=== PATIENT | female | born 1945 | race Caucasian/White ===

== ENCOUNTER → 2017-01-21 | Outpatient (CLI) | payer MEDICARE, BC ==
[~2017-01-21] MED LIST: ASPI-630 PO; CLON0.12 PO; ESCITALOPRAM OX10 MG PO; GLIM1TAB2 PO; INSU100V8 SQ; L.AC1CAP6 PO; LEVO25TA4 PO; LOSA25TA4 PO; MIRT7.5T8 PO; OMEP10CA3 PO; POTA20PA PO
[2017-01-21 14:37] LABS: CREATININE 1.1 mg/dL (0.6-1.0); GFR 49.2; POTASSIUM 3.6 mmol/L (3.5-5.1)
== END | disposition home or self-care (01) ==
LOC: LAB 13:56
PROVIDERS: ATTEND Psychiatry & Neurology Neurology
DX: R51 Headache (principal)
CPT/HCPCS: 36415; 80051; 82565; 84520

== ENCOUNTER 2017-03-23 00:59 | Inpatient (IN) | payer MEDICARE, BC ==
[2017-03-23] VITALS (19 sets, daily range): BP systolic 98–171; BP diastolic 56–91
[~2017-03-23] VITALS: Ht 160 cm; Wt 110.7 kg
[2017-03-23] MEDS ORDERED: hydrALAZINE 20 MG/ML VIAL. IVP PRN ×2 (02:00→09:45)
[2017-03-23] MEDS: KETOROLAC 15 MG/ML VIAL. IV PRN ×2 (03:48→10:31)
[2017-03-23] MEDS ORDERED: LOSA1TAB19 PO (07:22)
[2017-03-23] MEDS ORDERED: CHOL500016 PO (07:22)
[2017-03-23] MEDS ORDERED: GLIM1TAB2 PO (07:22)
[2017-03-23] MEDS ORDERED: POLY17PO29 PO (07:22)
[2017-03-23] MEDS ORDERED: GLIM4TAB2 PO (07:22)
[2017-03-23] MEDS ORDERED: CLON1TAB3 PO (07:22)
[2017-03-23] MEDS ORDERED: POTASSIUM CHLO10 MEQ PO (07:22)
[2017-03-23] MEDS ORDERED: LEVO112T50 PO (07:49)
[2017-03-23] MEDS ORDERED: ATOR20TA58 PO (07:49)
[2017-03-23] MEDS ORDERED: ONDA4TAB7 PO (07:49)
[2017-03-23] MEDS ORDERED: FLUT9.9S NS (07:49)
[2017-03-23] MEDS ORDERED: IVIG (07:49)
[2017-03-23] MEDS ORDERED: ASPI-482 PO (07:49)
[2017-03-23] MEDS ORDERED: TOPI25TA52 PO (07:49)
[2017-03-23] MEDS ORDERED: INSU100V13 SQ (07:49)
[2017-03-23] MEDS ORDERED: MULT1TAB52 PO (07:49)
[2017-03-23] MEDS ORDERED: ACET-704 PO (07:49)
[2017-03-23] MEDS ORDERED: GABA600T2 PO (07:49)
[2017-03-23] MEDS ORDERED: ESCITALOPRAM OX20 MG PO (07:49)
[2017-03-23] MEDS ORDERED: LACT1CAP6 PO (07:49)
[2017-03-23] MEDS ORDERED: CARV12.52 PO (07:49)
--- NOTE | 2017-03-23 08:32 | RAD ---
Indication abnormal physical exam. A single view of the chest was obtained. No prior imaging of the chest is available. The heart and pulmonary vessels are within normal limits. The left lung is clear. There is some volume loss in the right lower lobe compatible with atelectasis, scar or pneumonia. There may be a tiny right pleural effusion. There is no pneumothorax. The visualized bony structures appear grossly intact. IMPRESSION: Volume loss at the right lung base compatible with atelectasis, scar or pneumonia.
--- NOTE | 2017-03-23 09:44 | PDOC2 ---
VENU BULL EPIC RADIANT ANALYST 03/23/17 0944: CARDIAC CONSULT DATE OF CONSULT Date of Consult DATE: 03/23/17 TIME: 09:36 REASON FOR CONSULT Reason for Consult: CHF REFERRING PHYSICIAN Referring Physician: Dr. Uli Diaz SOURCE Source: Chart review, Patient HISTORY OF PRESENT ILLNESS HISTORY OF PRESENT ILLNESS 71 year old female who underwent outpatient left shoulder surgery @ [facility]. Reportedly on Tylenol #3 at home and became more lethargic. Brought to [facility] for lethargy and difficulty with arousing patient. Noted to have acute hypercapnic respiratory failure and increase in troponin level. She reports being short of breath recently and attributes this to a sinus infection. She also reports having trouble with speaking in the last few days. She currently complains of a headache and left shoulder pain. Reason for Visit: shortness of breath PAST MEDICAL HISTORY Cardiovascular: HTN Psych: Anxiety, Depression ENT: Sincusitis (chronic ) Endocrine: Diabetes, Hyperthyroidism, Hypothyroidism PAST SURGICAL HISTORY Past Surgical History: Cholecystectomy SOCIAL HISTORY Smoke: No ALCOHOL: none Drugs: None CURRENT MEDICATIONS CURRENT MEDICATIONS Current Medications Medications (Trade) Dose Ordered Sig/Mis Route PRN Reason Start Time Stop Time Status Last Admin Dose Admin Ketorolac Tromethamine (Toradol) 15 mg PRN Q6HRS PRN IV PAIN 03/23/17 02:30 03/28/17 02:29 03/23/17 03:48 ALLERGIES ALLERGIES: Coded Allergies: Sulfa (Sulfonamide Antibiotics) (Verified Allergy, Unknown, 10/16/14) aripiprazole (Verified Allergy, Unknown, 10/16/14) doxycycline (Verified Allergy, Unknown, 10/16/14) pseudoephedrine (Verified Allergy, Unknown, 10/16/14) ROS General: YES: Fatigue, Malaise PSYCHOLOGICAL ROS: No: Anxiety, Behavioral Disorder, Concentration difficultie , Decreased libido, Depression, Disorientation, Hallucinations, Hostility, Irritablity, Memory difficulties, Mood Swings, Obsessive thoughts, Physical abuse, Sexual abuse, Sleep disturbances, Suicidal ideation, Other Eyes: No Blurry vision, No Decreased vision, No Double vision, No Dry eyes, No Excessive tearing, No Eye Pain, No Itchy Eyes, No Loss of vision, No Photophobia , No Scotomata, No Uses contacts, No Uses glasses, No Other HEENT: YES: Heacaches ALLERGY AND IMMUNOLOGY: No: Hives, Insect Bite Sensitivity, Itchy/Watery Eyes, Nasal Congestion, Post Nasal Drip, Seasonal Allergies, Other Hematological and Lymphatic: No: Bleeding Problems, Blood Clots, Blood Transfusions, Brusing, Night Sweats, Pallor, Swollen Lymph Nodes, Other Respiratory: YES: Shortness of breath, SOB with excertion Cardiovascular: No Chest Pain, No Palpitations, No Orthopnea, No Paroxysmal Noc. Dyspnea, No Edema, No Lt Headedness, No Other Gastrointestinal: No Nausea, No Vomiting, No Abdominal Pain, No Diarrhea, No Constipation, No Melena, No Hematochezia, No Other Genitourinary: YES , No Dysuria, No Frequency, No Incontinence, No Hematuria, No Retention, No Discharge, No Urgency, No Pain, No Flank Pain, No Other Musculoskeletal: No Gait Disturbance, No Joint Pain, No Joint Stiffness, No Joint Swelling, No Muscle Pain, No Muscular Weakness, No Pain In:, No Swelling In:, No Other Skin: No Dry Skin, No Eczema, No Hair Changes, No Lumps, No Mole Changes, No Mottling, No Nail Changes, No Pruritus, No Rash, No Skin Lesion Changes, No Other, No Acne PHYSICAL EXAM General: Alert, Cooperative HEENT: Atraumatic Lungs: Other (diminished in the bases) Heart: Normal S1, Normal S2 Abdomen: Soft, Other (truncal obesity) Extremities: No edema, Normal pulses Skin: No rashes Neuro: Normal speech Psych/Mental Status: Mood NL MUSCULOSKELETAL: Osteoarthritic changes both hands VITALS VITALS Vital Signs Date Time Temp Pulse Resp B/P (MAP) Pulse Ox O2 Delivery O2 Flow Rate FiO2 03/23/17 06:00 76 15 158/68 (98) 95 Nasal Cannula 3.0 03/23/17 04:00 98.8 98.8 LABS Lab: Laboratory Tests Test 03/23/17 03:00 03/23/17 09:02 Troponin I Quantitative 0.082 ng/mL (0.000-0.055) Glucose (Fingerstick) 119 mg/dL (70-99) ECHOCARDIOGRAM ECHOCARDIOGRAM pending ASSESSMENT/PLAN ASSESSMENT/PLAN 1. acute hypercapnic resp failure off bi-pap and on cannula ? related to narcotic use 2. elevated troponin ? related to acute respiratory failure echo results pending ? MPI tomorrow 3. recent left shoulder surgery Problems: MCSWEYN,ELIECER J MD 03/23/17 1756: CARDIAC CONSULT ALLERGIES ALLERGIES: Coded Allergies: Sulfa (Sulfonamide Antibiotics) (Verified Allergy, Unknown, 10/16/14) aripiprazole (Verified Allergy, Unknown, 10/16/14) doxycycline (Verified Allergy, Unknown, 10/16/14) pseudoephedrine (Verified Allergy, Unknown, 10/16/14) ASSESSMENT/PLAN ASSESSMENT/PLAN Patient seen and examined Acute hypercapnic respiratory failure. Initially treated with BiPAP at now off BiPAP. Feeling better. Uncertain relationship to pain medications. Echocardiogram pending. Pulmonary evaluation pending. Minimally elevated troponin. No acute EKG changes. Echocardiogram as above. Possible demand ischemia. We'll consider MPI testing in the next one to 2 days. Recent left shoulder surgery shot admission. We'll check old records. Continue postop protocols. Thank you for allowing us to participate in the care of your patient. Problems: VENU BULL APRN Mar 23, 2017 09:44 ELIECER MIJARES MD Mar 23, 2017 17:56
[2017-03-23] MEDS ORDERED: DEXTROSE 50% 25 GM / 50ML DISP.SYRIN. IV PRN (09:45)
[2017-03-23] MEDS ORDERED: DOCUSATE SODIUM 100 MG CAPSULE. PO PRN (09:45)
[2017-03-23] MEDS ORDERED: ALBUTEROL SULFATE 2.5 MG/3 ML NEBU. NEB PRN (09:45)
[2017-03-23] MEDS ORDERED: MORPHINE SULFATE 2 MG/ML DISP.SYRIN. IV PRN (09:45)
[2017-03-23 09:58] LABS: CALCIUM 9.1 mg/dL (8.5-10.1); POTASSIUM 5.1 mmol/L (3.5-5.1); TOTAL BILIRUBIN 0.2 mg/dL (0.2-1.0); TOTAL PROTEIN 6.1 g/dL (6.4-8.2)
[2017-03-23] MEDS: POTASSIUM CHLORIDE 10 MEQ TABLET.ER. PO SCH (10:00)
[2017-03-23] MEDS: hydroCHLOROthiazide 12.5 MG CAPSULE PO SCH (10:21)
[2017-03-23] MEDS: MULTIVITAMIN with MINERAL TABLET. PO SCH (10:21)
[2017-03-23] MEDS: CARVEDILOL 12.5 MG TABLET. PO SCH ×2 (10:21→16:57)
[2017-03-23] MEDS: CHOLECALCIFEROL (VITAMIN D3) 5,000 UNIT CAPSULE PO SCH (10:21)
[2017-03-23] MEDS: CITALOPRAM 20 MG TABLET. PO SCH (10:21)
[2017-03-23] MEDS: LOSARTAN POTASSIUM 50 MG TABLET. PO SCH (10:22)
[2017-03-23] MEDS: traMADol 50 MG TABLET PO PRN ×2 (10:22→16:57)
[2017-03-23] MEDS: PANTOPRAZOLE 40 MG TABLET.DR. PO SCH (10:22)
[2017-03-23] MEDS: ASPIRIN CHEWABLE 81 MG TABLET. PO SCH (10:23)
[2017-03-23] MEDS: GABAPENTIN 300 MG CAPSULE. PO SCH ×2 (10:23→21:56)
[2017-03-23] MEDS: POLYETHYLENE GLYCOL 3350 17 GM PACKET. PO SCH (10:23)
[2017-03-23] MEDS: FLUTICASONE 50MCG/NASAL SPRAY 16GM BOTTLE. NS SCH (10:30)
[2017-03-23] MEDS: ONDANSETRON PF 4 MG/2 ML VIAL. IV PRN (11:20)
[2017-03-23] MEDS: ACETAMINOPHEN 325 MG TABLET. PO PRN (11:25)
[2017-03-23] MEDS: INSULIN ASPART 300 UNITS/3 ML INSULN.PEN SQ SCH ×2 (12:00→16:58)
[2017-03-23] MEDS: IPRATRPIUM/ALBUTEROL 0.5/2.5MG 3 ML NEBU. NEB SCH ×3 (12:58→20:23)
--- NOTE | 2017-03-23 13:24 | PDOC1 ---
History and Physical Date of Admission Date of Admission 03/23/17 Identification/Chief Complaint Chief Complaint cough, AMS Problems: Source Source: Chart review, Patient History of Present Illness History of Present Illness 71yoF, with no COPD,OR CHF, but had MN with PCI 2008 , was transferred from [facility] for cough, resp failure and AMS. pT is living with her daughter at home, uses a cane. denies smoking. She has been coughing with some sputum x1day, but last week was treated with ABX for her chronic sinusitis from ENT. Pt also had some sob. no chest pain. in [facility], PH 7.25, PCO2 56. T 99.2 at home. JOCELINE on CPAP at home. recent got left shoulder fx and has sx at [facility] now on imobilizer. She aslo felt hard to find correct words to say, no new ext weakness. has h/o left ankle fx and since then uses a left foot brace. Past Medical History Cardiovascular: HTN Psych: Anxiety, Depression ENT: Sincusitis (chronic ) Endocrine: Diabetes, Hyperthyroidism, Hypothyroidism Past Surgical History Past Surgical History: Cholecystectomy Social History Smoke: No ALCOHOL: none Drugs: None Current Medications Current Medications Current Medications Medications (Trade) Dose Ordered Sig/Mis Start Time Stop Time Status Last Admin Dose Admin Acetaminophen (Tylenol) 650 mg PRN Q6HRS PRN 03/23/17 09:45 03/23/17 11:25 650 MG Albuterol Sulfate (Ventolin Neb Soln) 2.5 mg PRN Q2HR PRN 03/23/17 09:45 Albuterol/ Ipratropium (Duoneb) 3 ml RTQID 03/23/17 12:00 03/23/17 12:58 3 ML Aspirin (Children'S Aspirin) 81 mg DAILY 03/23/17 10:00 03/23/17 10:23 81 MG Atorvastatin Calcium (Lipitor) 20 mg HS 03/23/17 21:00 Carvedilol (Coreg) 12.5 mg BIDWMEALS 03/23/17 10:00 03/23/17 10:21 12.5 MG Citalopram Hydrobromide (CeleXA) 40 mg DAILY 03/23/17 10:00 03/23/17 10:21 40 MG Clonazepam (KlonoPIN) 0.5 mg QHS 03/23/17 21:00 Dextrose (Dextrose 50%-Water Syringe) 12.5 gm PRN Q15MIN PRN 03/23/17 09:45 Docusate Sodium (Colace) 100 mg PRN DAILY PRN 03/23/17 09:45 Fluticasone Propionate (Flonase) 2 spray DAILY 03/23/17 10:30 Gabapentin (Neurontin) 600 mg BID 03/23/17 10:00 03/23/17 10:23 600 MG Glimepiride (Amaryl) 4 mg DAILYWSUP 03/24/17 17:00 Guaifenesin (Mucinex) 600 mg BID 03/23/17 10:30 03/23/17 10:21 600 MG Hydralazine HCl (Apresoline Inj) 10 mg PRN Q4HRS PRN 03/23/17 09:45 Hydrochlorothiazide (Microzide) 12.5 mg DAILY 03/23/17 10:00 03/23/17 10:21 12.5 MG Insulin Aspart (NovoLOG) 0-9 UNITS TIDWMEALS 03/23/17 12:00 Insulin Detemir (Levemir) 20 units QHS 03/23/17 21:00 Ketorolac Tromethamine (Toradol) 15 mg PRN Q6HRS PRN 03/23/17 02:30 03/28/17 02:29 03/23/17 10:31 15 MG Levothyroxine Sodium (Synthroid) 112 mcg QHS 03/23/17 21:00 Losartan Potassium (Cozaar) 50 mg DAILY 03/23/17 10:00 03/23/17 10:22 50 MG Mirtazapine (Remeron) 7.5 mg QHS 03/23/17 21:00 Morphine Sulfate 2 mg PRN Q2HR PRN 03/23/17 09:45 Multivitamins (Thera M Plus) 1 tab DAILY 03/23/17 10:00 03/23/17 10:21 1 TAB Non-Formulary Medication 1 tab DAILY 03/24/17 09:00 UNV Ondansetron HCl (Zofran) 4 mg PRN Q6HRS PRN 03/23/17 09:45 03/23/17 11:20 4 MG Pantoprazole Sodium (Protonix) 40 mg DAILYAC 03/23/17 10:00 03/23/17 10:22 40 MG Polyethylene Glycol (miraLAX PACKET) 17 gm DAILY 03/23/17 10:00 03/23/17 10:23 17 GM Potassium Chloride (Klor-Con) 10 meq DAILYWBKFT 03/23/17 10:00 Topiramate (Topamax) 25 mg QHS 03/23/17 21:00 Tramadol HCl (Ultram) 50 mg PRN Q6HRS PRN 03/23/17 09:45 03/23/17 10:22 50 MG Vitamin D (Vitamin D3) 5,000 unit DAILY 03/23/17 10:00 03/23/17 10:21 5,000 UNIT Allergies Allergies Allergies Coded Allergies Type Severity Reaction Last Updated Verified Sulfa (Sulfonamide Antibiotics) Allergy Unknown 10/16/14 Yes aripiprazole Allergy Unknown 10/16/14 Yes doxycycline Allergy Unknown 10/16/14 Yes pseudoephedrine Allergy Unknown 10/16/14 Yes ROS Review of System CONSTITUTIONAL: No fever or chills EYES: No recent changes SKIN: No rash or itching CARDIOVASCULAR: No chest pain, syncope, palpitations, or edema RESPIRATORY: No SOB or cough GASTROINTESTINAL: No nausea, vomiting or abdominal pain NEUROLOGICAL: No headaches or weakness ENDOCRINE: No cold or heat intolerance GENITOURINARY: No urgency or frequency of urination MUSCULOSKELETAL: No back pain or joint pain LYMPHATICS: No enlarged lymph nodes PSYCHIATRIC: No anxiety or depression Physical Exam Physical Exam GEN.: No apparent distress. Alert and oriented. HEENT: Head is normocephalic, atraumatic NECK: Supple. LUNGS: right side decreased bs. HEART: RRR, S1, S2 present. Peripheral pulses intact ABDOMEN: Soft, nontender. Positive bowel sounds. EXTREMITIES: Without any cyanosis. NEUROLOGIC: Normal speech, normal tone PSYCHIATRIC: Normal affect, normal mood. SKIN: No ulcerations Vitals Vitals Vital Signs Date Time Temp Pulse Resp B/P (MAP) Pulse Ox O2 Delivery O2 Flow Rate FiO2 03/23/17 12:59 96 Nasal Cannula 2.0 03/23/17 11:25 17 03/23/17 10:22 78 128/63 03/23/17 07:00 98.5 98.5 Labs Labs Laboratory Tests Test 03/23/17 03:00 03/23/17 09:02 03/23/17 09:20 Troponin I Quantitative 0.082 ng/mL (0.000-0.055) 0.101 ng/mL (0.000-0.055) Glucose (Fingerstick) 119 mg/dL (70-99) Sodium Level 133 mmol/L (136-145) Potassium Level 5.1 mmol/L (3.5-5.1) Chloride Level 98 mmol/L (98-107) Carbon Dioxide Level 29 mmol/L (21-32) Anion Gap 6 (6-14) Blood Urea Nitrogen 26 mg/dL (7-20) Creatinine 1.0 mg/dL (0.6-1.0) Estimated GFR (Cockcroft-Gault) 55.0 BUN/Creatinine Ratio 26 (6-20) Glucose Level 147 mg/dL (70-99) Calcium Level 9.1 mg/dL (8.5-10.1) Total Bilirubin 0.2 mg/dL (0.2-1.0) Aspartate Amino Transf (AST/SGOT) 37 U/L (15-37) Alanine Aminotransferase (ALT/SGPT) 19 U/L (14-59) Alkaline Phosphatase 75 U/L (46-116) Total Protein 6.1 g/dL (6.4-8.2) Albumin 3.0 g/dL (3.4-5.0) Albumin/Globulin Ratio 1.0 (1.0-1.7) Laboratory Tests Test 03/23/17 03:00 03/23/17 09:02 03/23/17 09:20 Troponin I Quantitative 0.082 ng/mL (0.000-0.055) 0.101 ng/mL (0.000-0.055) Glucose (Fingerstick) 119 mg/dL (70-99) Sodium Level 133 mmol/L (136-145) Potassium Level 5.1 mmol/L (3.5-5.1) Chloride Level 98 mmol/L (98-107) Carbon Dioxide Level 29 mmol/L (21-32) Anion Gap 6 (6-14) Blood Urea Nitrogen 26 mg/dL (7-20) Creatinine 1.0 mg/dL (0.6-1.0) Estimated GFR (Cockcroft-Gault) 55.0 BUN/Creatinine Ratio 26 (6-20) Glucose Level 147 mg/dL (70-99) Calcium Level 9.1 mg/dL (8.5-10.1) Total Bilirubin 0.2 mg/dL (0.2-1.0) Aspartate Amino Transf (AST/SGOT) 37 U/L (15-37) Alanine Aminotransferase (ALT/SGPT) 19 U/L (14-59) Alkaline Phosphatase 75 U/L (46-116) Total Protein 6.1 g/dL (6.4-8.2) Albumin 3.0 g/dL (3.4-5.0) Albumin/Globulin Ratio 1.0 (1.0-1.7) VTE Prophylaxis Ordered VTE Prophylaxis Devices: Yes VTE Pharmacological Prophylaxi: Yes Assessment/Plan Assessment/Plan acute hypoxic and hypercapnic resp failure, 2/2 CAP vs. CHF exacerbation h/o CAD post PCI htn dm2 on insulin hypothyroidism morbid obesity recent left shoulder fx post sx mild malnutrition elevated troponin with CHF? plan: fu with card, pulm cont home meds duoneb, cough meds, add levaquin on insulin, decrease levemir to 20u qhs, SSI check BNP echo done, result pending NC as needed, CPAP at night dvt ppx PTOT ok to transfer out of ICU LIANA MARTIN MD Mar 23, 2017 13:24
--- NOTE | 2017-03-23 13:26 | CARD ---
APPROVED REPORT EXAM: Two-dimensional and M-mode echocardiogram with Doppler and color Doppler. Other Information Quality : Good INDICATION Elevated Troponin 2D DIMENSIONS RVDd1.5 (2.9-3.5cm)Left Atrium(2D)3.3 (1.6-4.0cm) IVSd1.4 (0.7-1.1cm)Aortic Root(2D)2.8 (2.0-3.7cm) LVDd4.6 (3.9-5.9cm)LVOT Diameter2.3 (1.8-2.4cm) PWd1.1 (0.7-1.1cm)LVDs3.6 (2.5-4.0cm) FS (%) 30.0 %SV41.3 ml LVEF(%)60.0 (>50%) Tricuspid Valve TR P. [id number] [id number] TR Peak [id number] LEFT VENTRICLE The left ventricle is normal size. There is mild asymmetric septal hypertrophy. The left ventricular systolic function is normal and the ejection fraction is within normal range. The Ejection Fraction i s 55-60%. There is normal LV segmental wall motion. Limited images due to patient positioning but wit hin this limitation, no gross wall motion abnormalities are noted. RIGHT VENTRICLE The right ventricle is normal size. The right ventricular systolic function is normal. ATRIA The left atrium size is normal. The right atrium size is normal. The interatrial septum is intact wit h no evidence for an atrial septal defect or patent foramen ovale as noted on 2-D or Doppler imaging. AORTIC VALVE The aortic valve is normal in structure and function. Doppler and Color Flow revealed no significant aortic regurgitation. There is no significant aortic valvular stenosis. MITRAL VALVE The mitral valve is normal in structure and function. There is no evidence of mitral valve prolapse. There is no mitral valve stenosis. Doppler and Color Flow revealed no mitral valve regurgitation note d. TRICUSPID VALVE The tricuspid valve is normal in structure and function. Doppler and Color Flow revealed mild tricusp id regurgitation.There is moderate pulmonary hypertension.The PA pressure was estimated at 48 mmHg. T here is no tricuspid valve stenosis. PULMONIC VALVE Doppler and Color Flow revealed no pulmonic valvular regurgitation. There is no pulmonic valvular gustavo nosis. GREAT VESSELS The aortic root is normal in size. The ascending aorta is not well seen. The IVC is normal in size an d collapses <50% with inspiration. PERICARDIAL EFFUSION There is no evidence of significant pericardial effusion. Critical Notification Critical Value: No <Conclusion> The left ventricular systolic function is normal and the ejection fraction is within normal range. Th e Ejection Fraction is 55-60%. There is normal LV segmental wall motion. Limited images due to patient positioning but within this l imitation, no gross wall motion abnormalities are noted. Doppler and Color Flow revealed mild tricuspid regurgitation.There is moderate pulmonary hypertension .The PA pressure was estimated at 48 mmHg.
[2017-03-23] MEDS: ENOXAPARIN 40 MG/0.4 ML SYRINGE. SQ SCH ×2 (15:22→21:59)
--- NOTE | 2017-03-23 15:56 | PDOC ---
PULMONARY PROGRESS NOTES Vitals Vital Signs Date Time Temp Pulse Resp B/P (MAP) Pulse Ox O2 Delivery O2 Flow Rate FiO2 03/23/17 12:59 96 Nasal Cannula 2.0 03/23/17 11:25 17 03/23/17 10:22 78 128/63 03/23/17 07:00 98.5 98.5 Labs Laboratory Tests Test 03/23/17 03:00 03/23/17 08:20 03/23/17 09:02 03/23/17 09:20 Troponin I Quantitative 0.082 ng/mL (0.000-0.055) 0.101 ng/mL (0.000-0.055) HF-Euh-E-Type Natriuretic Peptide 1587 pg/mL (0-124) Glucose (Fingerstick) 119 mg/dL (70-99) Sodium Level 133 mmol/L (136-145) Potassium Level 5.1 mmol/L (3.5-5.1) Chloride Level 98 mmol/L (98-107) Carbon Dioxide Level 29 mmol/L (21-32) Anion Gap 6 (6-14) Blood Urea Nitrogen 26 mg/dL (7-20) Creatinine 1.0 mg/dL (0.6-1.0) Estimated GFR (Cockcroft-Gault) 55.0 BUN/Creatinine Ratio 26 (6-20) Glucose Level 147 mg/dL (70-99) Calcium Level 9.1 mg/dL (8.5-10.1) Total Bilirubin 0.2 mg/dL (0.2-1.0) Aspartate Amino Transf (AST/SGOT) 37 U/L (15-37) Alanine Aminotransferase (ALT/SGPT) 19 U/L (14-59) Alkaline Phosphatase 75 U/L (46-116) Total Protein 6.1 g/dL (6.4-8.2) Albumin 3.0 g/dL (3.4-5.0) Albumin/Globulin Ratio 1.0 (1.0-1.7) Test 03/23/17 13:06 Glucose (Fingerstick) 154 mg/dL (70-99) Laboratory Tests Test 03/23/17 03:00 03/23/17 08:20 03/23/17 09:02 03/23/17 09:20 Troponin I Quantitative 0.082 ng/mL (0.000-0.055) 0.101 ng/mL (0.000-0.055) SV-Rzz-K-Type Natriuretic Peptide 1587 pg/mL (0-124) Glucose (Fingerstick) 119 mg/dL (70-99) Sodium Level 133 mmol/L (136-145) Potassium Level 5.1 mmol/L (3.5-5.1) Chloride Level 98 mmol/L (98-107) Carbon Dioxide Level 29 mmol/L (21-32) Anion Gap 6 (6-14) Blood Urea Nitrogen 26 mg/dL (7-20) Creatinine 1.0 mg/dL (0.6-1.0) Estimated GFR (Cockcroft-Gault) 55.0 BUN/Creatinine Ratio 26 (6-20) Glucose Level 147 mg/dL (70-99) Calcium Level 9.1 mg/dL (8.5-10.1) Total Bilirubin 0.2 mg/dL (0.2-1.0) Aspartate Amino Transf (AST/SGOT) 37 U/L (15-37) Alanine Aminotransferase (ALT/SGPT) 19 U/L (14-59) Alkaline Phosphatase 75 U/L (46-116) Total Protein 6.1 g/dL (6.4-8.2) Albumin 3.0 g/dL (3.4-5.0) Albumin/Globulin Ratio 1.0 (1.0-1.7) Test 03/23/17 13:06 Glucose (Fingerstick) 154 mg/dL (70-99) Medications Active Scripts Medications Dose Route/Sig Max Daily Dose Days Date Category Zofran (Ondansetron Hcl) 4 Mg Tablet 1 Tab PO PRN Q6-8HRS 03/23/17 Reported Tylenol With Codeine #3 Tablet (Acetaminophen/Codeine Phosphate) 1 Each Tablet 1 Tab PO PRN Q4HRS PRN 03/23/17 Reported [Ivig] 1 Q4WK 03/23/17 Reported Probiotic (Lactobacillus Acidophilus) 1 Each Capsule 1 Each PO DAILY 03/23/17 Reported Multivitamins (Multivitamin) 1 Each Tablet 1 Tab PO DAILY 03/23/17 Reported Gabapentin 600 Mg Tablet 600 Mg PO BID 03/23/17 Reported Levemir (Insulin Detemir) 100 Unit/1 Ml Vial 29 Unit SQ QHS 03/23/17 Reported Flonase Allergy Relief (Fluticasone Propionate) 9.9 Ml [place].susp 2 Sprays NS BID 03/23/17 Reported Carvedilol 12.5 Mg Tablet 1 Tab PO BID 03/23/17 Reported Escitalopram Oxalate 20 Mg Tablet 1 Tab PO DAILY 03/23/17 Reported Levo-T (Levothyroxine Sodium) 112 Mcg Tablet 112 Mcg PO QHS 03/23/17 Reported Atorvastatin Calcium 20 Mg Tablet 20 Mg PO HS 03/23/17 Reported Topamax (Topiramate) 25 Mg Tablet 1 Tab PO QHS 03/23/17 Reported Clonazepam 1 Mg Tablet 0.5 Tab PO QHS 03/23/17 Reported Glimepiride 4 Mg Tablet 1 Tab PO DAILYWLUN 03/23/17 Reported Glimepiride 1 Mg Tablet 1 Tab PO DAILYWSUP 03/23/17 Reported Vitamin D3 (Cholecalciferol (Vitamin D3)) 5,000 Unit Tablet 1 Tab PO DAILY 03/23/17 Reported Potassium Chloride 10 Meq Capsule.er 10 Meq PO DAILY 03/23/17 Reported Losartan-Hctz 50-12.5 Mg Tab (Losartan/Hydrochlorothiazide) 1 Each Tablet 1 Tab PO DAILY 03/23/17 Reported Miralax (Polyethylene Glycol 3350) 17 Gm Powd.pack 1 Packet PO DAILY 03/23/17 Reported Mirtazapine 7.5 Mg Tablet 7.5 Mg PO QHS 10/16/14 Reported Omeprazole 10 Mg Capsule.dr 30 Mg PO DAILY 10/16/14 Reported Aspirin 81 Mg Tab.chew 1 Tab PO DAILY 10/16/14 Reported Impression . FULL NOTE DICTATED HYPERCAP RESP FAILURE JOCELINE BIPAP IS AVOID SEDATING MEDICATION ERICA DIAZ MD Mar 23, 2017 15:56
--- NOTE | 2017-03-23 16:53 | CONS ---
DATE OF CONSULTATION: 03/23/2017 ATTENDING PHYSICIAN: Dr. Diaz. REASON FOR CONSULTATION: The patient seen in pulmonary consultation at the request of Dr. Diaz for acute respiratory failure. HISTORY OF PRESENT ILLNESS: The patient is a 71-year-old obese individual with a body mass index of 41, presented to [facility] after family noted that she had decreased level of consciousness. The patient recently underwent left shoulder surgery at [facility] and was discharged home on Tylenol 3. She was brought to the Emergency Room as a result of lethargy and difficulty with arousing. The patient was found to be in hypercapnic respiratory failure. She was placed on BiPAP and transferred to [facility]. The patient normally takes a total of 1500 mg of Neurontin. She also has a history of obstructive sleep apnea and is on BiPAP. Otherwise, she has never smoked. There is no history of DVT or pulmonary embolism. I reviewed her chemistry, she is not a CO2 retainer. Her bicarbonate in the serum was 29. She reports a cough, mostly nonproductive. No fever or chills. Chest x-ray was reviewed. There is right lower lobe infiltrate, possible atelectasis. Echocardiogram was performed, EF was 55%, pulmonary artery pressure was 48. PAST MEDICAL HISTORY: Obstructive sleep apnea, secondary pulmonary hypertension, pulmonary artery pressures measured at 48 on today's echocardiogram, anxiety and depression, hypertension, diabetes, hyperthyroidism. PAST SURGICAL HISTORY: Status post cholecystectomy. SOCIAL HISTORY: She has never smoked. Denies any alcohol intake. ALLERGIES: TO SULFA, DOXYCYCLINE, PSEUDOEPHEDRINE AND ARIPIPRAZOLE FAMILY HISTORY: Noncontributory in this situation. REVIEW OF SYSTEMS: As indicated above, otherwise, a 10-point system was reviewed and negative. PHYSICAL EXAMINATION: VITAL SIGNS: Stable. O2 saturation currently on 2 liters was 94%. HEENT: Eyes, the sclerae were nonicteric. NECK: Jugular venous distention could not be assessed secondary to body habitus. CHEST: Full expansion. LUNGS: Diminished breath sounds bilaterally with no wheezes. CARDIOVASCULAR: Regular rate and rhythm with S1, S2; no S3. ABDOMEN: Obese, soft. EXTREMITIES: No clubbing or cyanosis, some edema. NEUROLOGIC: The patient was awake, alert, following commands. A detailed neuro exam was not performed. IMPRESSION: 1. Acute hypercapnic respiratory failure. 2. Obstructive sleep apnea/obesity hypoventilation syndrome. 3. Secondary pulmonary hypertension, pulmonary artery pressure measured at 48 mmHg. 4. Morbid obesity, body mass index of 41.8. 5. Recent left shoulder surgery. PLAN: 1. Would avoid sedating medications. I think the combination of gabapentin and Tylenol 3 is what caused the hypercapnia, in addition to her underlying JOCELINE and obesity. 2. Continue BiPAP. 3. Continue home medications. 4. Incentive spirometry. 5. Continue Levaquin. 6. DVT prophylaxis. I do appreciate the privilege in sharing in the patient's care. ERICA DIAZ MD DR: RUIZ/jadyn JOB#: [id number] / [id number]
[2017-03-23] MEDS ORDERED: TOPIRAMATE 25 MG TABLET. PO SCH (21:00)
[2017-03-23] MEDS ORDERED: INSULIN DETEMIR 300 UNITS/3 ML INSULN.PEN. SQ SCH (21:00)
[2017-03-23] MEDS: ATORVASTATIN CALCIUM 20 MG TABLET PO SCH (21:56)
[2017-03-23] MEDS: LEVOTHYROXINE 112 MCG TABLET PO SCH (21:58)
[2017-03-23] MEDS: clonazePAM 0.5 MG TABLET PO SCH (21:58)
[2017-03-23] MEDS: MIRTAZAPINE 15 MG TABLET PO SCH (21:58)
[2017-03-23] MEDS: INSULIN DETEMIR 300 UNITS/3 ML INSULN.PEN. SQ SCH (22:02)
[2017-03-24 03:00] VITALS: BP 137/74
[2017-03-24] MEDS: ACETAMINOPHEN 325 MG TABLET. PO PRN (03:06)
[2017-03-24] MEDS: traMADol 50 MG TABLET PO PRN (03:06)
[2017-03-24 05:38] LABS: BASO # 0.1 x10^3/uL (0.0-0.2); BASO % 1 % (0-3); EOS % 6 % (0-3); HEMOGLOBIN 9.4 g/dL (12.0-15.5); LYMPH # 2.3 x10^3/uL (1.0-4.8); LYMPH % 31 % (24-48); MEAN CORPUSCULAR HEMOGLOBIN 28 pg (25-35); MEAN CORPUSCULAR HGB CONC 34 g/dL (31-37); MEAN CORPUSCULAR VOLUME 82 fL (79-100); MONO % 8 % (0-9); NEUT % 55 % (31-73); PLATELET COUNT 294 x10^3/uL (140-400); RED BLOOD COUNT 3.44 x10^6/uL (3.50-5.40); RED CELL DISTRIBUTION WIDTH 16.7 % (11.5-14.5); WHITE BLOOD COUNT 7.7 x10^3/uL (4.0-11.0)
[2017-03-24 06:20] LABS: CALCIUM 8.9 mg/dL (8.5-10.1); CREATININE 1.1 mg/dL (0.6-1.0); GFR 49.2; POTASSIUM 4.5 mmol/L (3.5-5.1)
[2017-03-24] MEDS: IPRATRPIUM/ALBUTEROL 0.5/2.5MG 3 ML NEBU. NEB SCH ×4 (07:17→20:17)
[2017-03-24] MEDS: INSULIN ASPART 300 UNITS/3 ML INSULN.PEN SQ SCH ×3 (08:00→17:00)
[2017-03-24 08:48] VITALS: BP 145/69
[2017-03-24] MEDS ORDERED: NON FORMULARY ITEM (Losartan/Hydrochlorothiazide (Losartan-Hctz 50-12.5 Mg Tab) 1 TAB) PO SCH (09:00)
[2017-03-24] MEDS: POLYETHYLENE GLYCOL 3350 17 GM PACKET. PO SCH ×2 (09:00→21:06)
[2017-03-24] MEDS: ENOXAPARIN 40 MG/0.4 ML SYRINGE. SQ SCH ×2 (09:11→21:07)
[2017-03-24] MEDS: CHOLECALCIFEROL (VITAMIN D3) 5,000 UNIT CAPSULE PO SCH (09:11)
[2017-03-24] MEDS: GABAPENTIN 300 MG CAPSULE. PO SCH ×2 (09:12→21:06)
[2017-03-24] MEDS: MULTIVITAMIN with MINERAL TABLET. PO SCH (09:12)
[2017-03-24] MEDS: POTASSIUM CHLORIDE 10 MEQ TABLET.ER. PO SCH (09:13)
[2017-03-24] MEDS: hydroCHLOROthiazide 12.5 MG CAPSULE PO SCH (09:13)
[2017-03-24] MEDS: CARVEDILOL 12.5 MG TABLET. PO SCH ×2 (09:13→16:30)
[2017-03-24] MEDS: ASPIRIN CHEWABLE 81 MG TABLET. PO SCH (09:13)
[2017-03-24] MEDS: CITALOPRAM 20 MG TABLET. PO SCH (09:13)
[2017-03-24] MEDS: PANTOPRAZOLE 40 MG TABLET.DR. PO SCH (09:14)
[2017-03-24] MEDS: LOSARTAN POTASSIUM 50 MG TABLET. PO SCH (09:14)
[2017-03-24] MEDS: KETOROLAC 15 MG/ML VIAL. IV PRN (09:17)
[2017-03-24] MEDS: FLUTICASONE 50MCG/NASAL SPRAY 16GM BOTTLE. NS SCH (09:18)
[2017-03-24] MEDS: ONDANSETRON PF 4 MG/2 ML VIAL. IV PRN (10:26)
[2017-03-24 11:00] VITALS: BP 148/86
--- NOTE | 2017-03-24 12:38 | PDOC ---
PULMONARY PROGRESS NOTES Subjective PT WITH NO INCREASE SOA DID NOT WEAR BIPAP LAST ALY Vitals Vital Signs Date Time Temp Pulse Resp B/P (MAP) Pulse Ox O2 Delivery O2 Flow Rate FiO2 03/24/17 11:09 Nasal Cannula 2.0 03/24/17 11:00 97.8 79 20 148/86 (106) 95 97.8 ROS: No Nausea, No Chest Pain, No Abdominal Pain, No Increase Cough Lungs: Clear Cardiovascular: S1, S2 Abdomen: Soft, Non-tender Neuro Exam: Alert Extremities: No Edema Skin: Warm, Dry Labs Laboratory Tests Test 03/23/17 01:15 03/23/17 03:00 03/23/17 08:20 03/23/17 09:02 Nasal Screen MRSA (PCR) Positive (Negative) Troponin I Quantitative 0.082 ng/mL (0.000-0.055) ES-Rbb-[id number]-Type Natriuretic Peptide 1587 pg/mL (0-124) Glucose (Fingerstick) 119 mg/dL (70-99) Test 03/23/17 09:20 03/23/17 13:06 03/23/17 16:47 03/23/17 21:07 Sodium Level 133 mmol/L (136-145) Potassium Level 5.1 mmol/L (3.5-5.1) Chloride Level 98 mmol/L (98-107) Carbon Dioxide Level 29 mmol/L (21-32) Anion Gap 6 (6-14) Blood Urea Nitrogen 26 mg/dL (7-20) Creatinine 1.0 mg/dL (0.6-1.0) Estimated GFR (Cockcroft-Gault) 55.0 BUN/Creatinine Ratio 26 (6-20) Glucose Level 147 mg/dL (70-99) Calcium Level 9.1 mg/dL (8.5-10.1) Total Bilirubin 0.2 mg/dL (0.2-1.0) Aspartate Amino Transf (AST/SGOT) 37 U/L (15-37) Alanine Aminotransferase (ALT/SGPT) 19 U/L (14-59) Alkaline Phosphatase 75 U/L (46-116) Troponin I Quantitative 0.101 ng/mL (0.000-0.055) Total Protein 6.1 g/dL (6.4-8.2) Albumin 3.0 g/dL (3.4-5.0) Albumin/Globulin Ratio 1.0 (1.0-1.7) Glucose (Fingerstick) 154 mg/dL (70-99) 111 mg/dL (70-99) 110 mg/dL (70-99) Test 03/24/17 05:30 03/24/17 08:05 03/24/17 11:53 White Blood Count 7.7 x10^3/uL (4.0-11.0) Red Blood Count 3.44 x10^6/uL (3.50-5.40) Hemoglobin 9.4 g/dL (12.0-15.5) Hematocrit 28.0 % (36.0-47.0) Mean Corpuscular Volume 82 fL (79-100) Mean Corpuscular Hemoglobin 28 pg (25-35) Mean Corpuscular Hemoglobin Concent 34 g/dL (31-37) Red Cell Distribution Width 16.7 % (11.5-14.5) Platelet Count 294 x10^3/uL (140-400) Neutrophils (%) (Auto) 55 % (31-73) Lymphocytes (%) (Auto) 31 % (24-48) Monocytes (%) (Auto) 8 % (0-9) Eosinophils (%) (Auto) 6 % (0-3) Basophils (%) (Auto) 1 % (0-3) Neutrophils # (Auto) 4.2 x10^3uL (1.8-7.7) Lymphocytes # (Auto) 2.3 x10^3/uL (1.0-4.8) Monocytes # (Auto) 0.6 x10^3/uL (0.0-1.1) Eosinophils # (Auto) 0.5 x10^3/uL (0.0-0.7) Basophils # (Auto) 0.1 x10^3/uL (0.0-0.2) Sodium Level 135 mmol/L (136-145) Potassium Level 4.5 mmol/L (3.5-5.1) Chloride Level 101 mmol/L (98-107) Carbon Dioxide Level 30 mmol/L (21-32) Anion Gap 4 (6-14) Blood Urea Nitrogen 22 mg/dL (7-20) Creatinine 1.1 mg/dL (0.6-1.0) Estimated GFR (Cockcroft-Gault) 49.2 Glucose Level 85 mg/dL (70-99) Calcium Level 8.9 mg/dL (8.5-10.1) Glucose (Fingerstick) 82 mg/dL (70-99) 192 mg/dL (70-99) Laboratory Tests Test 03/23/17 13:06 03/23/17 16:47 03/23/17 21:07 03/24/17 05:30 Glucose (Fingerstick) 154 mg/dL (70-99) 111 mg/dL (70-99) 110 mg/dL (70-99) White Blood Count 7.7 x10^3/uL (4.0-11.0) Red Blood Count 3.44 x10^6/uL (3.50-5.40) Hemoglobin 9.4 g/dL (12.0-15.5) Hematocrit 28.0 % (36.0-47.0) Mean Corpuscular Volume 82 fL (79-100) Mean Corpuscular Hemoglobin 28 pg (25-35) Mean Corpuscular Hemoglobin Concent 34 g/dL (31-37) Red Cell Distribution Width 16.7 % (11.5-14.5) Platelet Count 294 x10^3/uL (140-400) Neutrophils (%) (Auto) 55 % (31-73) Lymphocytes (%) (Auto) 31 % (24-48) Monocytes (%) (Auto) 8 % (0-9) Eosinophils (%) (Auto) 6 % (0-3) Basophils (%) (Auto) 1 % (0-3) Neutrophils # (Auto) 4.2 x10^3uL (1.8-7.7) Lymphocytes # (Auto) 2.3 x10^3/uL (1.0-4.8) Monocytes # (Auto) 0.6 x10^3/uL (0.0-1.1) Eosinophils # (Auto) 0.5 x10^3/uL (0.0-0.7) Basophils # (Auto) 0.1 x10^3/uL (0.0-0.2) Sodium Level 135 mmol/L (136-145) Potassium Level 4.5 mmol/L (3.5-5.1) Chloride Level 101 mmol/L (98-107) Carbon Dioxide Level 30 mmol/L (21-32) Anion Gap 4 (6-14) Blood Urea Nitrogen 22 mg/dL (7-20) Creatinine 1.1 mg/dL (0.6-1.0) Estimated GFR (Cockcroft-Gault) 49.2 Glucose Level 85 mg/dL (70-99) Calcium Level 8.9 mg/dL (8.5-10.1) Test 03/24/17 08:05 03/24/17 11:53 Glucose (Fingerstick) 82 mg/dL (70-99) 192 mg/dL (70-99) Medications Active Scripts Medications Dose Route/Sig Max Daily Dose Days Date Category Zofran (Ondansetron Hcl) 4 Mg Tablet 1 Tab PO PRN Q6-8HRS 03/23/17 Reported Tylenol With Codeine #3 Tablet (Acetaminophen/Codeine Phosphate) 1 Each Tablet 1 Tab PO PRN Q4HRS PRN 03/23/17 Reported [Ivig] 1 Q4WK 03/23/17 Reported Probiotic (Lactobacillus Acidophilus) 1 Each Capsule 1 Each PO DAILY 03/23/17 Reported Multivitamins (Multivitamin) 1 Each Tablet 1 Tab PO DAILY 03/23/17 Reported Gabapentin 600 Mg Tablet 600 Mg PO BID 03/23/17 Reported Levemir (Insulin Detemir) 100 Unit/1 Ml Vial 29 Unit SQ QHS 03/23/17 Reported Flonase Allergy Relief (Fluticasone Propionate) 9.9 Ml [place].susp 2 Sprays NS BID 03/23/17 Reported Carvedilol 12.5 Mg Tablet 1 Tab PO BID 03/23/17 Reported Escitalopram Oxalate 20 Mg Tablet 1 Tab PO DAILY 03/23/17 Reported Levo-T (Levothyroxine Sodium) 112 Mcg Tablet 112 Mcg PO QHS 03/23/17 Reported Atorvastatin Calcium 20 Mg Tablet 20 Mg PO HS 03/23/17 Reported Topamax (Topiramate) 25 Mg Tablet 1 Tab PO QHS 03/23/17 Reported Clonazepam 1 Mg Tablet 0.5 Tab PO QHS 03/23/17 Reported Glimepiride 4 Mg Tablet 1 Tab PO DAILYWLUN 03/23/17 Reported Glimepiride 1 Mg Tablet 1 Tab PO DAILYWSUP 03/23/17 Reported Vitamin D3 (Cholecalciferol (Vitamin D3)) 5,000 Unit Tablet 1 Tab PO DAILY 03/23/17 Reported Potassium Chloride 10 Meq Capsule.er 10 Meq PO DAILY 03/23/17 Reported Losartan-Hctz 50-12.5 Mg Tab (Losartan/Hydrochlorothiazide) 1 Each Tablet 1 Tab PO DAILY 03/23/17 Reported Miralax (Polyethylene Glycol 3350) 17 Gm Powd.pack 1 Packet PO DAILY 03/23/17 Reported Mirtazapine 7.5 Mg Tablet 7.5 Mg PO QHS 10/16/14 Reported Omeprazole 10 Mg Capsule.dr 30 Mg PO DAILY 10/16/14 Reported Aspirin 81 Mg Tab.chew 1 Tab PO DAILY 10/16/14 Reported Impression . 1. Acute hypercapnic respiratory failure. 2. Obstructive sleep apnea/obesity hypoventilation syndrome. 3. Secondary pulmonary hypertension, pulmonary artery pressure measured at 48 mmHg. 4. Morbid obesity, body mass index of 41.8. 5. Recent left shoulder surgery. 6. Possible pneumonia POA IMPRESSION: Volume loss at the right lung base compatible with atelectasis, scar or pneumonia. Plan . pt to wear home bipap will continue the same 1. Would avoid sedating medications. I think the combination of gabapentin and Tylenol 3 is what caused the hypercapnia, in addition to her underlying JOCELINE and obesity. 2. Continue BiPAP. 3. Continue home medications. 4. Incentive spirometry. 5. Continue Levaquin. 6. DVT prophylaxis. ERICA DIAZ MD Mar 24, 2017 12:37
[2017-03-24] MEDS ORDERED: FUROSEMIDE 20 MG/2 ML VIAL. IVP ONE (14:45)
--- NOTE | 2017-03-24 14:46 | PDOC ---
PROGRESS NOTES Chief Complaint Chief Complaint acute hypoxic and hypercapnic resp failure, 2/2 CAP vs. CHF exacerbation, possible mild diastolic obesity hypoventilation h/o CAD post PCI htn dm2 on insulin hypothyroidism morbid obesity recent left shoulder fx post sx mild malnutrition elevated troponin with CHF? moderate PHTN headache h/o migraine plan: fu with card, pulm cont home meds duoneb, cough meds, add levaquin on insulin, decrease levemir to 20u qhs, SSI check BNP 1500 echo done, EF 55%, moderate PHTN NC as needed, CPAP at night dvt ppx PTOT neuro consult, add NSAIDS sw for rehab lasix x1 today, cxr repeat tmr History of Present Illness History of Present Illness ROS: no fever, chills, sob or chest pain still feels mild hardness to find words to say severe headache, but said it is not her routine migraine , fu with dr. Azevedo poor home environment Vitals Vitals Vital Signs Date Time Temp Pulse Resp B/P (MAP) Pulse Ox O2 Delivery O2 Flow Rate FiO2 03/24/17 11:09 Nasal Cannula 2.0 03/24/17 11:00 97.8 79 20 148/86 (106) 95 97.8 Physical Exam General: Alert, Cooperative Heart: Normal S1, Normal S2 Lungs: Clear Abdomen: Soft, Other (truncal obesity) Extremities: No edema, Normal pulses Skin: No rashes Labs LABS Laboratory Tests Test 03/23/17 16:47 03/23/17 21:07 03/24/17 05:30 03/24/17 08:05 Glucose (Fingerstick) 111 mg/dL (70-99) 110 mg/dL (70-99) 82 mg/dL (70-99) White Blood Count 7.7 x10^3/uL (4.0-11.0) Red Blood Count 3.44 x10^6/uL (3.50-5.40) Hemoglobin 9.4 g/dL (12.0-15.5) Hematocrit 28.0 % (36.0-47.0) Mean Corpuscular Volume 82 fL (79-100) Mean Corpuscular Hemoglobin 28 pg (25-35) Mean Corpuscular Hemoglobin Concent 34 g/dL (31-37) Red Cell Distribution Width 16.7 % (11.5-14.5) Platelet Count 294 x10^3/uL (140-400) Neutrophils (%) (Auto) 55 % (31-73) Lymphocytes (%) (Auto) 31 % (24-48) Monocytes (%) (Auto) 8 % (0-9) Eosinophils (%) (Auto) 6 % (0-3) Basophils (%) (Auto) 1 % (0-3) Neutrophils # (Auto) 4.2 x10^3uL (1.8-7.7) Lymphocytes # (Auto) 2.3 x10^3/uL (1.0-4.8) Monocytes # (Auto) 0.6 x10^3/uL (0.0-1.1) Eosinophils # (Auto) 0.5 x10^3/uL (0.0-0.7) Basophils # (Auto) 0.1 x10^3/uL (0.0-0.2) Sodium Level 135 mmol/L (136-145) Potassium Level 4.5 mmol/L (3.5-5.1) Chloride Level 101 mmol/L (98-107) Carbon Dioxide Level 30 mmol/L (21-32) Anion Gap 4 (6-14) Blood Urea Nitrogen 22 mg/dL (7-20) Creatinine 1.1 mg/dL (0.6-1.0) Estimated GFR (Cockcroft-Gault) 49.2 Glucose Level 85 mg/dL (70-99) Calcium Level 8.9 mg/dL (8.5-10.1) Test 03/24/17 11:53 Glucose (Fingerstick) 192 mg/dL (70-99) Comment Review of Relevant I have reviewed the following items tung (where applicable) has been applied. Labs Laboratory Tests Test 03/23/17 01:15 03/23/17 03:00 03/23/17 08:20 03/23/17 09:02 Nasal Screen MRSA (PCR) Positive (Negative) Troponin I Quantitative 0.082 ng/mL (0.000-0.055) QX-Plp-G-Type Natriuretic Peptide 1587 pg/mL (0-124) Glucose (Fingerstick) 119 mg/dL (70-99) Test 03/23/17 09:20 03/23/17 13:06 03/23/17 16:47 03/23/17 21:07 Sodium Level 133 mmol/L (136-145) Potassium Level 5.1 mmol/L (3.5-5.1) Chloride Level 98 mmol/L (98-107) Carbon Dioxide Level 29 mmol/L (21-32) Anion Gap 6 (6-14) Blood Urea Nitrogen 26 mg/dL (7-20) Creatinine 1.0 mg/dL (0.6-1.0) Estimated GFR (Cockcroft-Gault) 55.0 BUN/Creatinine Ratio 26 (6-20) Glucose Level 147 mg/dL (70-99) Calcium Level 9.1 mg/dL (8.5-10.1) Total Bilirubin 0.2 mg/dL (0.2-1.0) Aspartate Amino Transf (AST/SGOT) 37 U/L (15-37) Alanine Aminotransferase (ALT/SGPT) 19 U/L (14-59) Alkaline Phosphatase 75 U/L (46-116) Troponin I Quantitative 0.101 ng/mL (0.000-0.055) Total Protein 6.1 g/dL (6.4-8.2) Albumin 3.0 g/dL (3.4-5.0) Albumin/Globulin Ratio 1.0 (1.0-1.7) Glucose (Fingerstick) 154 mg/dL (70-99) 111 mg/dL (70-99) 110 mg/dL (70-99) Test 03/24/17 05:30 03/24/17 08:05 03/24/17 11:53 White Blood Count 7.7 x10^3/uL (4.0-11.0) Red Blood Count 3.44 x10^6/uL (3.50-5.40) Hemoglobin 9.4 g/dL (12.0-15.5) Hematocrit 28.0 % (36.0-47.0) Mean Corpuscular Volume 82 fL (79-100) Mean Corpuscular Hemoglobin 28 pg (25-35) Mean Corpuscular Hemoglobin Concent 34 g/dL (31-37) Red Cell Distribution Width 16.7 % (11.5-14.5) Platelet Count 294 x10^3/uL (140-400) Neutrophils (%) (Auto) 55 % (31-73) Lymphocytes (%) (Auto) 31 % (24-48) Monocytes (%) (Auto) 8 % (0-9) Eosinophils (%) (Auto) 6 % (0-3) Basophils (%) (Auto) 1 % (0-3) Neutrophils # (Auto) 4.2 x10^3uL (1.8-7.7) Lymphocytes # (Auto) 2.3 x10^3/uL (1.0-4.8) Monocytes # (Auto) 0.6 x10^3/uL (0.0-1.1) Eosinophils # (Auto) 0.5 x10^3/uL (0.0-0.7) Basophils # (Auto) 0.1 x10^3/uL (0.0-0.2) Sodium Level 135 mmol/L (136-145) Potassium Level 4.5 mmol/L (3.5-5.1) Chloride Level 101 mmol/L (98-107) Carbon Dioxide Level 30 mmol/L (21-32) Anion Gap 4 (6-14) Blood Urea Nitrogen 22 mg/dL (7-20) Creatinine 1.1 mg/dL (0.6-1.0) Estimated GFR (Cockcroft-Gault) 49.2 Glucose Level 85 mg/dL (70-99) Calcium Level 8.9 mg/dL (8.5-10.1) Glucose (Fingerstick) 82 mg/dL (70-99) 192 mg/dL (70-99) Laboratory Tests Test 03/23/17 16:47 03/23/17 21:07 03/24/17 05:30 03/24/17 08:05 Glucose (Fingerstick) 111 mg/dL (70-99) 110 mg/dL (70-99) 82 mg/dL (70-99) White Blood Count 7.7 x10^3/uL (4.0-11.0) Red Blood Count 3.44 x10^6/uL (3.50-5.40) Hemoglobin 9.4 g/dL (12.0-15.5) Hematocrit 28.0 % (36.0-47.0) Mean Corpuscular Volume 82 fL (79-100) Mean Corpuscular Hemoglobin 28 pg (25-35) Mean Corpuscular Hemoglobin Concent 34 g/dL (31-37) Red Cell Distribution Width 16.7 % (11.5-14.5) Platelet Count 294 x10^3/uL (140-400) Neutrophils (%) (Auto) 55 % (31-73) Lymphocytes (%) (Auto) 31 % (24-48) Monocytes (%) (Auto) 8 % (0-9) Eosinophils (%) (Auto) 6 % (0-3) Basophils (%) (Auto) 1 % (0-3) Neutrophils # (Auto) 4.2 x10^3uL (1.8-7.7) Lymphocytes # (Auto) 2.3 x10^3/uL (1.0-4.8) Monocytes # (Auto) 0.6 x10^3/uL (0.0-1.1) Eosinophils # (Auto) 0.5 x10^3/uL (0.0-0.7) Basophils # (Auto) 0.1 x10^3/uL (0.0-0.2) Sodium Level 135 mmol/L (136-145) Potassium Level 4.5 mmol/L (3.5-5.1) Chloride Level 101 mmol/L (98-107) Carbon Dioxide Level 30 mmol/L (21-32) Anion Gap 4 (6-14) Blood Urea Nitrogen 22 mg/dL (7-20) Creatinine 1.1 mg/dL (0.6-1.0) Estimated GFR (Cockcroft-Gault) 49.2 Glucose Level 85 mg/dL (70-99) Calcium Level 8.9 mg/dL (8.5-10.1) Test 03/24/17 11:53 Glucose (Fingerstick) 192 mg/dL (70-99) Medications Current Medications Hydralazine HCl (Apresoline Inj) 10 mg PRN Q4HRS PRN IVP ELEVATED BP, SEE COMMENTS; Start 03/23/17 at 02:00; Status Cancel Ketorolac Tromethamine (Toradol) 15 mg PRN Q6HRS PRN IV PAIN Last administered on 03/24/17 09:17; Start 03/23/17 at 02:30; Stop 03/28/17 at 02:29 Aspirin (Children'S Aspirin) 81 mg DAILY PO Last administered on 03/24/17 09: 13; Start 10/9/17 at 10:00 Atorvastatin Calcium (Lipitor) 20 mg HS PO Last administered on 03/23/17 21:56 ; Start 03/23/17 at 21:00 Carvedilol (Coreg) 12.5 mg BIDWMEALS PO Last administered on 03/24/17 09:13; Start 03/23/17 at 10:00 Clonazepam (KlonoPIN) 0.5 mg QHS PO Last administered on 03/23/17 21:58; Start 03/23/17 at 21:00 Levothyroxine Sodium (Synthroid) 112 mcg QHS PO Last administered on 03/23/17 21:58; Start 03/23/17 at 21:00 Mirtazapine (Remeron) 7.5 mg QHS PO Last administered on 03/23/17 21:58; Start 03/23/17 at 21:00 Polyethylene Glycol (miraLAX PACKET) 17 gm DAILY PO Last administered on 10:23; Start 03/23/17 at 10:00; Stop 03/24/17 at 09:30; Status DC Topiramate (Topamax) 25 mg QHS PO Last administered on 03/23/17 21:56; Start 03/23/17 at 21:00 Vitamin D (Vitamin D3) 5,000 unit DAILY PO Last administered on 03/24/17 09: 11; Start 03/23/17 at 10:00 Citalopram Hydrobromide (CeleXA) 40 mg DAILY PO Last administered on 09:13; Start 03/23/17 at 10:00 Fluticasone Propionate (Flonase) 2 spray DAILY NS Last administered on 09:18; Start 03/23/17 at 10:30 Gabapentin (Neurontin) 600 mg BID PO Last administered on 03/24/17 09:12; Start 03/23/17 at 10:00 Glimepiride (Amaryl) 4 mg DAILYWSUP PO ; Start 03/24/17 at 17:00 Insulin Detemir (Levemir) 29 units QHS SQ ; Start 03/23/17 at 21:00; Stop at 21:00; Status DC Non-Formulary Medication 1 tab DAILY PO ; Start 03/24/17 at 09:00; Status UNV Multivitamins (Thera M Plus) 1 tab DAILY PO Last administered on 03/24/17 09: 12; Start 03/23/17 at 10:00 Pantoprazole Sodium (Protonix) 40 mg DAILYAC PO Last administered on 09:14; Start 03/23/17 at 10:00 Potassium Chloride (Klor-Con) 10 meq DAILYWBKFT PO Last administered on 09:13; Start 03/23/17 at 10:00 Insulin Detemir (Levemir) 20 units QHS SQ Last administered on 03/23/17 22:02 ; Start 03/23/17 at 21:00 Acetaminophen (Tylenol) 650 mg PRN Q6HRS PRN PO FEVER Last administered on 03:06; Start 03/23/17 at 09:45 Ondansetron HCl (Zofran) 4 mg PRN Q6HRS PRN IV NAUSEA/VOMITING Last administered on 03/24/17 10:26; Start 03/23/17 at 09:45 Morphine Sulfate 2 mg PRN Q2HR PRN IV PAIN; Start 03/23/17 at 09:45 Tramadol HCl (Ultram) 50 mg PRN Q6HRS PRN PO PAIN Last administered on 03:06; Start 03/23/17 at 09:45 Hydralazine HCl (Apresoline Inj) 10 mg PRN Q4HRS PRN IVP ELEVATED BP, SEE COMMENTS; Start 03/23/17 at 09:45 Docusate Sodium (Colace) 100 mg PRN DAILY PRN PO CONSTIPATION; Start 03/23/17 at 09:45 Albuterol/ Ipratropium (Duoneb) 3 ml RTQID NEB Last administered on 03/24/17 11:08; Start 03/23/17 at 12:00 Albuterol Sulfate (Ventolin Neb Soln) 2.5 mg PRN Q2HR PRN NEB SHORTNESS OF BREATH; Start 03/23/17 at 09:45 Guaifenesin (Mucinex) 600 mg BID PO Last administered on 03/24/17 09:11; Start 03/23/17 at 10:30 Insulin Aspart (NovoLOG) 0-9 UNITS TIDWMEALS SQ Last administered on 13:30; Start 03/23/17 at 12:00 Dextrose (Dextrose 50%-Water Syringe) 12.5 gm PRN Q15MIN PRN IV SEE COMMENTS; Start 03/23/17 at 09:45 Losartan Potassium (Cozaar) 50 mg DAILY PO Last administered on 03/24/17 09: 14; Start 03/23/17 at 10:00 Hydrochlorothiazide (Microzide) 12.5 mg DAILY PO Last administered on 09:13; Start 03/23/17 at 10:00 Levofloxacin/ Dextrose 150 ml @ 100 mls/hr Q24H IV Last administered on 13:37; Start 03/23/17 at 14:00 Enoxaparin Sodium (Lovenox 40mg Syringe) 40 mg BID SQ Last administered on 09:11; Start 03/23/17 at 14:00 Polyethylene Glycol (miraLAX PACKET) 17 gm QHS PO ; Start 03/24/17 at 21:00 Ibuprofen (Motrin) 600 mg PRN Q6HRS PRN PO INFLAMMATION; Start 03/24/17 at 12: 00 Active Scripts Active Reported Zofran (Ondansetron Hcl) 4 Mg Tablet 1 Tab PO PRN Q6-8HRS Tylenol With Codeine #3 Tablet (Acetaminophen/Codeine Phosphate) 1 Each Tablet 1 Tab PO PRN Q4HRS PRN [Ivig] 1 Q4WK Probiotic (Lactobacillus Acidophilus) 1 Each Capsule 1 Each PO DAILY Multivitamins (Multivitamin) 1 Each Tablet 1 Tab PO DAILY Gabapentin 600 Mg Tablet 600 Mg PO BID Levemir (Insulin Detemir) 100 Unit/1 Ml Vial 29 Unit SQ QHS Flonase Allergy Relief (Fluticasone Propionate) 9.9 Ml [place].susp 2 Sprays NS BID Carvedilol 12.5 Mg Tablet 1 Tab PO BID Escitalopram Oxalate 20 Mg Tablet 1 Tab PO DAILY Levo-T (Levothyroxine Sodium) 112 Mcg Tablet 112 Mcg PO QHS Atorvastatin Calcium 20 Mg Tablet 20 Mg PO HS Topamax (Topiramate) 25 Mg Tablet 1 Tab PO QHS Clonazepam 1 Mg Tablet 0.5 Tab PO QHS Glimepiride 4 Mg Tablet 1 Tab PO DAILYWLUN Glimepiride 1 Mg Tablet 1 Tab PO DAILYWSUP Vitamin D3 (Cholecalciferol (Vitamin D3)) 5,000 Unit Tablet 1 Tab PO DAILY Potassium Chloride 10 Meq Capsule.er 10 Meq PO DAILY Losartan-Hctz 50-12.5 Mg Tab (Losartan/Hydrochlorothiazide) 1 Each Tablet 1 Tab PO DAILY Miralax (Polyethylene Glycol 3350) 17 Gm Powd.pack 1 Packet PO DAILY Mirtazapine 7.5 Mg Tablet 7.5 Mg PO QHS Omeprazole 10 Mg Capsule.dr 30 Mg PO DAILY Aspirin 81 Mg Tab.chew 1 Tab PO DAILY Vitals/I & O Vital Sign - Last 24 Hours 03/23/17 03/23/17 03/23/17 03/23/17 16:00 16:26 16:57 16:57 Pulse 70 73 Resp 20 24 B/P (MAP) 130/70 (90) 130/70 Pulse Ox 96 97 94 O2 Delivery Nasal Cannula Nasal Cannula Nasal Cannula O2 Flow Rate 2.0 2.0 2.0 03/23/17 03/23/17 03/23/17 03/23/17 18:00 19:25 20:00 20:23 Temp 98.2 98.2 Pulse 71 Resp 14 20 B/P (MAP) 116/61 (79) Pulse Ox 95 96 94 O2 Delivery Nasal Cannula Room Air Nasal Cannula Nasal Cannula O2 Flow Rate 2.0 2.0 1.0 03/23/17 03/23/17 03/24/17 03/24/17 23:00 23:28 01:25 03:00 Temp 98.9 98.1 98.9 98.1 Pulse 71 71 Resp 20 18 B/P (MAP) 112/64 (80) 137/74 (95) Pulse Ox 95 96 95 97 O2 Delivery Room Air BiPAP/CPAP BiPAP/CPAP Nasal Cannula O2 Flow Rate 2.0 03/24/17 03/24/17 03/24/17 03/24/17 07:19 08:00 08:48 09:13 Temp 97.7 97.7 Pulse 72 72 Resp 20 B/P (MAP) 145/69 (94) 145/69 Pulse Ox 96 97 O2 Delivery Nasal Cannula Nasal Cannula Room Air O2 Flow Rate 2.0 2.0 03/24/17 03/24/17 03/24/17 09:14 11:00 11:09 Temp 97.8 97.8 Pulse 72 79 Resp 20 B/P (MAP) 145/69 148/86 (106) Pulse Ox 95 O2 Delivery Nasal Cannula Nasal Cannula O2 Flow Rate 2.0 2.0 LIANA MARTIN MD Mar 24, 2017 14:46
[2017-03-24 15:30] VITALS: BP 128/74
--- NOTE | 2017-03-24 16:07 | PDOC ---
CARDIO Progress Notes Date and Time Date of Service 03/24/2017 Time of Evaluation 1545 Subjective Subjective: No Chest Pain, No shortness of breath, No Palpitations Vitals Vitals Vital Signs Date Time Temp Pulse Resp B/P (MAP) Pulse Ox O2 Delivery O2 Flow Rate FiO2 03/24/17 15:30 97.9 73 20 128/74 (92) 98 Nasal Cannula 2.0 97.9 Weight Weight [ ] Laboratory Labs Laboratory Tests Test 03/23/17 16:47 03/23/17 21:07 03/24/17 05:30 03/24/17 08:05 Glucose (Fingerstick) 111 mg/dL (70-99) 110 mg/dL (70-99) 82 mg/dL (70-99) White Blood Count 7.7 x10^3/uL (4.0-11.0) Red Blood Count 3.44 x10^6/uL (3.50-5.40) Hemoglobin 9.4 g/dL (12.0-15.5) Hematocrit 28.0 % (36.0-47.0) Mean Corpuscular Volume 82 fL (79-100) Mean Corpuscular Hemoglobin 28 pg (25-35) Mean Corpuscular Hemoglobin Concent 34 g/dL (31-37) Red Cell Distribution Width 16.7 % (11.5-14.5) Platelet Count 294 x10^3/uL (140-400) Neutrophils (%) (Auto) 55 % (31-73) Lymphocytes (%) (Auto) 31 % (24-48) Monocytes (%) (Auto) 8 % (0-9) Eosinophils (%) (Auto) 6 % (0-3) Basophils (%) (Auto) 1 % (0-3) Neutrophils # (Auto) 4.2 x10^3uL (1.8-7.7) Lymphocytes # (Auto) 2.3 x10^3/uL (1.0-4.8) Monocytes # (Auto) 0.6 x10^3/uL (0.0-1.1) Eosinophils # (Auto) 0.5 x10^3/uL (0.0-0.7) Basophils # (Auto) 0.1 x10^3/uL (0.0-0.2) Sodium Level 135 mmol/L (136-145) Potassium Level 4.5 mmol/L (3.5-5.1) Chloride Level 101 mmol/L (98-107) Carbon Dioxide Level 30 mmol/L (21-32) Anion Gap 4 (6-14) Blood Urea Nitrogen 22 mg/dL (7-20) Creatinine 1.1 mg/dL (0.6-1.0) Estimated GFR (Cockcroft-Gault) 49.2 Glucose Level 85 mg/dL (70-99) Calcium Level 8.9 mg/dL (8.5-10.1) Test 03/24/17 11:53 Glucose (Fingerstick) 192 mg/dL (70-99) Physical Exam HEENT: Neck Supple W Full Motion Chest: Symmetric LUNGS: Clear to Auscultation Heart: S1S2, RRR (SR no significant ectopies) Abdomen: Soft N/T Extremities: No Calf Tenderness, Other (1+ bilateral LE piotting edema; right shoulder on sling) Neurology: alert, oriented, follow commands Assessment Assessment 1. Acute on chronic respiratory failure: with underlying uncontrolled JOCELINE and opioid use. pulmonary following 2. Elevated troponin: peaked at 0.1. demand mediated, hypoxia related. TTE with normal EF and wall motion. 3. Recent RRTC repair: Thursday, will need dressing change, defer to PCP. 4. CAD: stent in the past. last normal MPI 03/2016 per pt. Recommendations 1. No further cardiac workup. Good tolerance with recent surgery. F/U with Dr. Bright in 2 weeks. 2. Continue with secondary prevention 3. May consider for MPI as an outpt once shoulder is better healed and ROM is ideal. Discussed this with pt and would prefer further with her outpt youth development specialist. CARLTON VILLANUEVA APRN Mar 24, 2017 16:07
[2017-03-24] MEDS: GLIMEPIRIDE 2 MG TABLET. PO SCH (16:30)
[2017-03-24 19:25] VITALS: BP 115/67
--- NOTE | 2017-03-24 20:30 | PDOC2 ---
NEUROLOGY CONSULT Date of Admission Date of Admission DATE: 03/24/17 TIME: 20:15 Reason for Consult Reason for Consult: IMPRESSION: Headache. Temporal arteritis? Metabolic encephalopathy. Respiratory distress/failure. Pneumonia? DM HTN CAD Hypothyroidism. Cognitive impairment. Obesity. Elevated ESR. RECOMMENDATIONS/PLAN: Pain control. Brain MRI w/wo contrast. Increase Topamax to 25 mg bid. Lab: see orders. May consider temporal A biopsy after MRI id headaches not improving. HISTORY OF THE PRESENT ILLNESS: 71-y-old female patient with Hx of chronic headaches for many years but was controlled by Topamax HS dosing. She had rotate cuff surgery this time stating her headaches became worse for 3 days. She also has symptoms of mental status changes, and cognitive function impairment and feeling generalized weakness. Past Medical History Cardiovascular: HTN Psych: Anxiety, Depression ENT: Sincusitis (chronic ) Endocrine: Diabetes, Hyperthyroidism, Hypothyroidism Past Surgical History Cholecystectomy Social History Smoke: No ALCOHOL: none Drugs: None ALLERGY: reviewed. MEDICATIONS: Refer to [facility] FAMILY HISTORY: Non contributory. SOCIAL HISTORY: Lives at home. Denies smoking, drinking, and illicit drug use. REVIEW OF SYSTEMS: Constitutional: No malnutrition, weight loss, cachexia. Head: No traumatic brain or head injury. Skin: No edema, or rash. Ear: No infection. Eyes: No vision loss or color blindness. Nose: No bleeding or purulent discharges. Hearing: No hearing decrease. Neck: No injury. Breast: No history of cancer, masses,or discharges. Cardiac: CAD, HTN, HLD. Pulmonary: No COPD. GI: No GI ulcer, GI bleeding, GERD. Urinary/genital: UTI. Endocrinologic: Diabetes Mellitus, hypothyroidism, obesity. Skeletomuscular: Generalized weakness. Neurological: see HP. Psychiatric: Denies drug use/abuse. Otherwise, not [id number] review of systems. PHYSICAL EXAMINATION: General appearance is in subacute distress. HEENT: Normocephalic and nontraumatic. Eyes, nose, ears, and throat are unremarkable. Neck is supple. No lymphadenopathy. No bruits are heard over the carotid artery. No crepitus. Cardiovascular: S1, S2, regular rate and rhythm. Pulmonary: Clear to auscultation bilaterally. Abdomen: Bowel sounds are positive. Abdomen is soft, nontender, and nondistended. Extremities: No rash, lesions, or edema. No restriction of range of motion NEUROLOGICAL EXAMINATION: Alert Oriented to time, place and person. PERRL. EOMI. CN: no focal findings. Muscle tone: within normal. Muscle strength: 5- DTR: 2 Ue, 1+ at knee due to obesity. Plantar reflex: Flexor response bilaterally Gait: not examined in bed. Sensory exam: no abnormal findings. No cerebellar signs elicited. F-T-N test fine. Current Medications Current Medications Current Medications Hydralazine HCl (Apresoline Inj) 10 mg PRN Q4HRS PRN IVP ELEVATED BP, SEE COMMENTS; Start 03/23/17 at 02:00; Status Cancel Ketorolac Tromethamine (Toradol) 15 mg PRN Q6HRS PRN IV PAIN Last administered on 03/24/17 09:17; Start 03/23/17 at 02:30; Stop 03/28/17 at 02:29 Aspirin (Children'S Aspirin) 81 mg DAILY PO Last administered on 03/24/17 09: 13; Start 03/23/17 at 10:00 Atorvastatin Calcium (Lipitor) 20 mg HS PO Last administered on 03/23/17 21:56 ; Start 03/23/17 at 21:00 Carvedilol (Coreg) 12.5 mg BIDWMEALS PO Last administered on 03/24/17 16:30; Start 03/23/17 at 10:00 Clonazepam (KlonoPIN) 0.5 mg QHS PO Last administered on 03/23/17 21:58; Start 03/23/17 at 21:00 Levothyroxine Sodium (Synthroid) 112 mcg QHS PO Last administered on 03/23/17 21:58; Start 03/23/17 at 21:00 Mirtazapine (Remeron) 7.5 mg QHS PO Last administered on 03/23/17 21:58; Start 03/23/17 at 21:00 Polyethylene Glycol (miraLAX PACKET) 17 gm DAILY PO Last administered on 10:23; Start 03/23/17 at 10:00; Stop 03/24/17 at 09:30; Status DC Topiramate (Topamax) 25 mg QHS PO Last administered on 03/23/17 21:56; Start 03/23/17 at 21:00 Vitamin D (Vitamin D3) 5,000 unit DAILY PO Last administered on 03/24/17 09: 11; Start 03/23/17 at 10:00 Citalopram Hydrobromide (CeleXA) 40 mg DAILY PO Last administered on 09:13; Start 03/23/17 at 10:00 Fluticasone Propionate (Flonase) 2 spray DAILY NS Last administered on 09:18; Start 03/23/17 at 10:30 Gabapentin (Neurontin) 600 mg BID PO Last administered on 03/24/17 09:12; Start 03/23/17 at 10:00 Glimepiride (Amaryl) 4 mg DAILYWSUP PO Last administered on 03/24/17 16:30; Start 03/24/17 at 17:00 Insulin Detemir (Levemir) 29 units QHS SQ ; Start 03/23/17 at 21:00; Stop at 21:00; Status DC Non-Formulary Medication 1 tab DAILY PO ; Start 03/24/17 at 09:00; Status UNV Multivitamins (Thera M Plus) 1 tab DAILY PO Last administered on 03/24/17 09: 12; Start 03/23/17 at 10:00 Pantoprazole Sodium (Protonix) 40 mg DAILYAC PO Last administered on 09:14; Start 03/23/17 at 10:00 Potassium Chloride (Klor-Con) 10 meq DAILYWBKFT PO Last administered on 09:13; Start 03/23/17 at 10:00 Insulin Detemir (Levemir) 20 units QHS SQ Last administered on 03/23/17 22:02 ; Start 03/23/17 at 21:00 Acetaminophen (Tylenol) 650 mg PRN Q6HRS PRN PO FEVER Last administered on 03:06; Start 03/23/17 at 09:45 Ondansetron HCl (Zofran) 4 mg PRN Q6HRS PRN IV NAUSEA/VOMITING Last administered on 03/24/17 10:26; Start 03/23/17 at 09:45 Morphine Sulfate 2 mg PRN Q2HR PRN IV PAIN; Start 03/23/17 at 09:45 Tramadol HCl (Ultram) 50 mg PRN Q6HRS PRN PO PAIN Last administered on 03:06; Start 03/23/17 at 09:45 Hydralazine HCl (Apresoline Inj) 10 mg PRN Q4HRS PRN IVP ELEVATED BP, SEE COMMENTS; Start 03/23/17 at 09:45 Docusate Sodium (Colace) 100 mg PRN DAILY PRN PO CONSTIPATION; Start 03/23/17 at 09:45 Albuterol/ Ipratropium (Duoneb) 3 ml RTQID NEB Last administered on 03/24/17 15:10; Start 03/23/17 at 12:00 Albuterol Sulfate (Ventolin Neb Soln) 2.5 mg PRN Q2HR PRN NEB SHORTNESS OF BREATH; Start 03/23/17 at 09:45 Guaifenesin (Mucinex) 600 mg BID PO Last administered on 03/24/17 09:11; Start 03/23/17 at 10:30 Insulin Aspart (NovoLOG) 0-9 UNITS TIDWMEALS SQ Last administered on 13:30; Start 03/23/17 at 12:00 Dextrose (Dextrose 50%-Water Syringe) 12.5 gm PRN Q15MIN PRN IV SEE COMMENTS; Start 03/23/17 at 09:45 Losartan Potassium (Cozaar) 50 mg DAILY PO Last administered on 03/24/17 09: 14; Start 03/23/17 at 10:00 Hydrochlorothiazide (Microzide) 12.5 mg DAILY PO Last administered on 09:13; Start 03/23/17 at 10:00 Levofloxacin/ Dextrose 150 ml @ 100 mls/hr Q24H IV Last administered on 13:37; Start 03/23/17 at 14:00 Enoxaparin Sodium (Lovenox 40mg Syringe) 40 mg BID SQ Last administered on 09:11; Start 03/23/17 at 14:00 Polyethylene Glycol (miraLAX PACKET) 17 gm QHS PO ; Start 03/24/17 at 21:00 Ibuprofen (Motrin) 600 mg PRN Q6HRS PRN PO INFLAMMATION; Start 03/24/17 at 12: 00 Furosemide (Lasix) 20 mg 1X ONCE IVP Last administered on 03/24/17t 16:29; Start 03/24/17 at 14:45; Stop 03/24/17 at 14:48; Status DC Active Scripts Active Reported Zofran (Ondansetron Hcl) 4 Mg Tablet 1 Tab PO PRN Q6-8HRS Tylenol With Codeine #3 Tablet (Acetaminophen/Codeine Phosphate) 1 Each Tablet 1 Tab PO PRN Q4HRS PRN [Ivig] 1 Q4WK Probiotic (Lactobacillus Acidophilus) 1 Each Capsule 1 Each PO DAILY Multivitamins (Multivitamin) 1 Each Tablet 1 Tab PO DAILY Gabapentin 600 Mg Tablet 600 Mg PO BID Levemir (Insulin Detemir) 100 Unit/1 Ml Vial 29 Unit SQ QHS Flonase Allergy Relief (Fluticasone Propionate) 9.9 Ml [place].susp 2 Sprays NS BID Carvedilol 12.5 Mg Tablet 1 Tab PO BID Escitalopram Oxalate 20 Mg Tablet 1 Tab PO DAILY Levo-T (Levothyroxine Sodium) 112 Mcg Tablet 112 Mcg PO QHS Atorvastatin Calcium 20 Mg Tablet 20 Mg PO HS Topamax (Topiramate) 25 Mg Tablet 1 Tab PO QHS Clonazepam 1 Mg Tablet 0.5 Tab PO QHS Glimepiride 4 Mg Tablet 1 Tab PO DAILYWLUN Glimepiride 1 Mg Tablet 1 Tab PO DAILYWSUP Vitamin D3 (Cholecalciferol (Vitamin D3)) 5,000 Unit Tablet 1 Tab PO DAILY Potassium Chloride 10 Meq Capsule.er 10 Meq PO DAILY Losartan-Hctz 50-12.5 Mg Tab (Losartan/Hydrochlorothiazide) 1 Each Tablet 1 Tab PO DAILY Miralax (Polyethylene Glycol 3350) 17 Gm Powd.pack 1 Packet PO DAILY Mirtazapine 7.5 Mg Tablet 7.5 Mg PO QHS Omeprazole 10 Mg Capsule.dr 30 Mg PO DAILY Aspirin 81 Mg Tab.chew 1 Tab PO DAILY Allergies Allergies: Coded Allergies: I S O L A T I O N *CONTACT* (Verified Allergy, Unknown, 03/24/17) mrsa Sulfa (Sulfonamide Antibiotics) (Verified Allergy, Unknown, 10/16/14) aripiprazole (Verified Allergy, Unknown, 10/16/14) doxycycline (Verified Allergy, Unknown, 10/16/14) pseudoephedrine (Verified Allergy, Unknown, 10/16/14) Vitals VITALS Vital Signs Date Time Temp Pulse Resp B/P (MAP) Pulse Ox O2 Delivery O2 Flow Rate FiO2 03/24/17 19:25 98.1 74 20 115/67 (83) 96 Nasal Cannula 2.0 98.1 Labs Labs Laboratory Tests Test 03/23/17 01:15 03/23/17 03:00 03/23/17 08:20 03/23/17 09:02 Nasal Screen MRSA (PCR) Positive (Negative) Troponin I Quantitative 0.082 ng/mL (0.000-0.055) FD-[id number]-[id number]-Type Natriuretic Peptide 1587 pg/mL (0-124) Glucose (Fingerstick) 119 mg/dL (70-99) Test 03/23/17 09:20 03/23/17 13:06 03/23/17 16:47 03/23/17 21:07 Sodium Level 133 mmol/L (136-145) Potassium Level 5.1 mmol/L (3.5-5.1) Chloride Level 98 mmol/L (98-107) Carbon Dioxide Level 29 mmol/L (21-32) Anion Gap 6 (6-14) Blood Urea Nitrogen 26 mg/dL (7-20) Creatinine 1.0 mg/dL (0.6-1.0) Estimated GFR (Cockcroft-Gault) 55.0 BUN/Creatinine Ratio 26 (6-20) Glucose Level 147 mg/dL (70-99) Calcium Level 9.1 mg/dL (8.5-10.1) Total Bilirubin 0.2 mg/dL (0.2-1.0) Aspartate Amino Transf (AST/SGOT) 37 U/L (15-37) Alanine Aminotransferase (ALT/SGPT) 19 U/L (14-59) Alkaline Phosphatase 75 U/L (46-116) Troponin I Quantitative 0.101 ng/mL (0.000-0.055) Total Protein 6.1 g/dL (6.4-8.2) Albumin 3.0 g/dL (3.4-5.0) Albumin/Globulin Ratio 1.0 (1.0-1.7) Glucose (Fingerstick) 154 mg/dL (70-99) 111 mg/dL (70-99) 110 mg/dL (70-99) Test 03/24/17 05:30 03/24/17 08:05 03/24/17 11:53 03/24/17 16:40 White Blood Count 7.7 x10^3/uL (4.0-11.0) Red Blood Count 3.44 x10^6/uL (3.50-5.40) Hemoglobin 9.4 g/dL (12.0-15.5) Hematocrit 28.0 % (36.0-47.0) Mean Corpuscular Volume 82 fL (79-100) Mean Corpuscular Hemoglobin 28 pg (25-35) Mean Corpuscular Hemoglobin Concent 34 g/dL (31-37) Red Cell Distribution Width 16.7 % (11.5-14.5) Platelet Count 294 x10^3/uL (140-400) Neutrophils (%) (Auto) 55 % (31-73) Lymphocytes (%) (Auto) 31 % (24-48) Monocytes (%) (Auto) 8 % (0-9) Eosinophils (%) (Auto) 6 % (0-3) Basophils (%) (Auto) 1 % (0-3) Neutrophils # (Auto) 4.2 x10^3uL (1.8-7.7) Lymphocytes # (Auto) 2.3 x10^3/uL (1.0-4.8) Monocytes # (Auto) 0.6 x10^3/uL (0.0-1.1) Eosinophils # (Auto) 0.5 x10^3/uL (0.0-0.7) Basophils # (Auto) 0.1 x10^3/uL (0.0-0.2) Sodium Level 135 mmol/L (136-145) Potassium Level 4.5 mmol/L (3.5-5.1) Chloride Level 101 mmol/L (98-107) Carbon Dioxide Level 30 mmol/L (21-32) Anion Gap 4 (6-14) Blood Urea Nitrogen 22 mg/dL (7-20) Creatinine 1.1 mg/dL (0.6-1.0) Estimated GFR (Cockcroft-Gault) 49.2 Glucose Level 85 mg/dL (70-99) Calcium Level 8.9 mg/dL (8.5-10.1) Glucose (Fingerstick) 82 mg/dL (70-99) 192 mg/dL (70-99) Erythrocyte Sedimentation Rate 61 (0-25) Thyroid Stimulating Hormone (TSH) 4.791 uIU/mL (0.358-3.74) Test 03/24/17 16:46 Glucose (Fingerstick) 126 mg/dL (70-99) Laboratory Tests Test 03/23/17 21:07 03/24/17 05:30 03/24/17 08:05 03/24/17 11:53 Glucose (Fingerstick) 110 mg/dL (70-99) 82 mg/dL (70-99) 192 mg/dL (70-99) White Blood Count 7.7 x10^3/uL (4.0-11.0) Red Blood Count 3.44 x10^6/uL (3.50-5.40) Hemoglobin 9.4 g/dL (12.0-15.5) Hematocrit 28.0 % (36.0-47.0) Mean Corpuscular Volume 82 fL (79-100) Mean Corpuscular Hemoglobin 28 pg (25-35) Mean Corpuscular Hemoglobin Concent 34 g/dL (31-37) Red Cell Distribution Width 16.7 % (11.5-14.5) Platelet Count 294 x10^3/uL (140-400) Neutrophils (%) (Auto) 55 % (31-73) Lymphocytes (%) (Auto) 31 % (24-48) Monocytes (%) (Auto) 8 % (0-9) Eosinophils (%) (Auto) 6 % (0-3) Basophils (%) (Auto) 1 % (0-3) Neutrophils # (Auto) 4.2 x10^3uL (1.8-7.7) Lymphocytes # (Auto) 2.3 x10^3/uL (1.0-4.8) Monocytes # (Auto) 0.6 x10^3/uL (0.0-1.1) Eosinophils # (Auto) 0.5 x10^3/uL (0.0-0.7) Basophils # (Auto) 0.1 x10^3/uL (0.0-0.2) Sodium Level 135 mmol/L (136-145) Potassium Level 4.5 mmol/L (3.5-5.1) Chloride Level 101 mmol/L (98-107) Carbon Dioxide Level 30 mmol/L (21-32) Anion Gap 4 (6-14) Blood Urea Nitrogen 22 mg/dL (7-20) Creatinine 1.1 mg/dL (0.6-1.0) Estimated GFR (Cockcroft-Gault) 49.2 Glucose Level 85 mg/dL (70-99) Calcium Level 8.9 mg/dL (8.5-10.1) Test 03/24/17 16:40 03/24/17 16:46 Erythrocyte Sedimentation Rate 61 (0-25) Thyroid Stimulating Hormone (TSH) 4.791 uIU/mL (0.358-3.74) Glucose (Fingerstick) 126 mg/dL (70-99) GLENN ESCOBEDO MD Mar 24, 2017 20:30
[2017-03-24] MEDS: ATORVASTATIN CALCIUM 20 MG TABLET PO SCH (21:06)
[2017-03-24] MEDS: LEVOTHYROXINE 112 MCG TABLET PO SCH (21:07)
[2017-03-24] MEDS: MIRTAZAPINE 15 MG TABLET PO SCH (21:07)
[2017-03-24] MEDS: clonazePAM 0.5 MG TABLET PO SCH (21:07)
[2017-03-24] MEDS: TOPIRAMATE 25 MG TABLET. PO SCH (21:07)
[2017-03-24] MEDS: INSULIN DETEMIR 300 UNITS/3 ML INSULN.PEN. SQ SCH (21:10)
[2017-03-24 23:10] VITALS: BP 136/72
[2017-03-25 02:13] LABS: BILIRUBIN,URINE NEGATIVE (NEG); GLUCOSE,URINE NEGATIVE (NEG); NITRITE,URINE NEGATIVE (NEG); PROTEIN,URINE NEGATIVE (NEG-TRACE); UROBILINOGEN,URINE 0.2 mg/dL (0.2 mg/dL)
[2017-03-25 02:45] LABS: BACTERIA,URINE 0 /HPF (0-FEW); RBC,URINE 0 /HPF (0-2); SQUAMOUS EPITHELIAL CELL,UR FEW /LPF; WBC,URINE OCC /HPF (0-4)
[2017-03-25 03:10] VITALS: BP 149/82
[2017-03-25 05:01] LABS: BASO # 0.1 x10^3/uL (0.0-0.2); BASO % 1 % (0-3); EOS % 5 % (0-3); HEMOGLOBIN 9.3 g/dL (12.0-15.5); LYMPH # 2.6 x10^3/uL (1.0-4.8); LYMPH % 34 % (24-48); MEAN CORPUSCULAR HEMOGLOBIN 27 pg (25-35); MEAN CORPUSCULAR HGB CONC 33 g/dL (31-37); MEAN CORPUSCULAR VOLUME 82 fL (79-100); MONO % 9 % (0-9); NEUT % 52 % (31-73); PLATELET COUNT 314 x10^3/uL (140-400); RED BLOOD COUNT 3.41 x10^6/uL (3.50-5.40); RED CELL DISTRIBUTION WIDTH 16.6 % (11.5-14.5); WHITE BLOOD COUNT 7.8 x10^3/uL (4.0-11.0)
[2017-03-25 05:33] LABS: CALCIUM 9.2 mg/dL (8.5-10.1); CREATININE 1.1 mg/dL (0.6-1.0); GFR 49.2; POTASSIUM 3.9 mmol/L (3.5-5.1)
[2017-03-25] MEDS: ACETAMINOPHEN 325 MG TABLET. PO PRN ×2 (05:48→16:53)
[2017-03-25 07:00] VITALS: BP 122/69
[2017-03-25] MEDS: IPRATRPIUM/ALBUTEROL 0.5/2.5MG 3 ML NEBU. NEB SCH ×4 (07:27→19:43)
[2017-03-25] MEDS: INSULIN ASPART 300 UNITS/3 ML INSULN.PEN SQ SCH ×3 (08:00→17:00)
[2017-03-25] MEDS: ENOXAPARIN 40 MG/0.4 ML SYRINGE. SQ SCH ×2 (08:37→21:10)
[2017-03-25] MEDS: GLIMEPIRIDE 2 MG TABLET. PO SCH (08:37)
[2017-03-25] MEDS: PANTOPRAZOLE 40 MG TABLET.DR. PO SCH (08:37)
[2017-03-25] MEDS: ASPIRIN CHEWABLE 81 MG TABLET. PO SCH (08:37)
[2017-03-25] MEDS: MULTIVITAMIN with MINERAL TABLET. PO SCH (08:37)
[2017-03-25] MEDS: CITALOPRAM 20 MG TABLET. PO SCH (08:38)
[2017-03-25] MEDS: CHOLECALCIFEROL (VITAMIN D3) 5,000 UNIT CAPSULE PO SCH (08:38)
[2017-03-25] MEDS: GABAPENTIN 300 MG CAPSULE. PO SCH ×2 (08:38→21:09)
[2017-03-25] MEDS: LOSARTAN POTASSIUM 50 MG TABLET. PO SCH (08:38)
[2017-03-25] MEDS: hydroCHLOROthiazide 12.5 MG CAPSULE PO SCH (08:39)
[2017-03-25] MEDS: TOPIRAMATE 25 MG TABLET. PO SCH ×2 (08:39→21:09)
[2017-03-25] MEDS: POTASSIUM CHLORIDE 10 MEQ TABLET.ER. PO SCH (08:39)
[2017-03-25] MEDS: CARVEDILOL 12.5 MG TABLET. PO SCH ×2 (08:39→16:53)
[2017-03-25] MEDS: FLUTICASONE 50MCG/NASAL SPRAY 16GM BOTTLE. NS SCH (08:43)
--- NOTE | 2017-03-25 09:58 | RAD ---
Indication difficulty breathing. A single view of the chest was obtained and is compared to an examination 2 days previously. The heart size is unchanged. There is no congestive heart failure. Aeration of the right lung base has improved relative to the previous exam and no significant volume loss is seen on today's study at the right lung base. There is no consolidated pneumonia pleural fluid or pneumothorax. IMPRESSION: No acute finding seen in the chest. Improved aeration of the right lung.
[2017-03-25 11:00] VITALS: BP 157/79
[2017-03-25] MEDS ORDERED: GADOBUTROL 10 MMOL/10 ML VIAL IV ONE (12:30)
--- NOTE | 2017-03-25 12:41 | PDOC ---
PULMONARY PROGRESS NOTES Subjective PT [facility] BIPAP Vitals Vital Signs Date Time Temp Pulse Resp B/P (MAP) Pulse Ox O2 Delivery O2 Flow Rate FiO2 03/25/17 11:19 98 Room Air 03/25/17 11:00 98.4 75 19 157/79 (105) 2.0 98.4 ROS: No Nausea, No Chest Pain, No Abdominal Pain, No Increase Cough Lungs: Clear Cardiovascular: S1, S2 Abdomen: Soft, Non-tender Neuro Exam: Alert Extremities: No Edema Skin: Warm, Dry Labs Laboratory Tests Test 03/23/17 13:06 03/23/17 16:47 03/23/17 21:07 03/24/17 05:30 Glucose (Fingerstick) 154 mg/dL (70-99) 111 mg/dL (70-99) 110 mg/dL (70-99) White Blood Count 7.7 x10^3/uL (4.0-11.0) Red Blood Count 3.44 x10^6/uL (3.50-5.40) Hemoglobin 9.4 g/dL (12.0-15.5) Hematocrit 28.0 % (36.0-47.0) Mean Corpuscular Volume 82 fL (79-100) Mean Corpuscular Hemoglobin 28 pg (25-35) Mean Corpuscular Hemoglobin Concent 34 g/dL (31-37) Red Cell Distribution Width 16.7 % (11.5-14.5) Platelet Count 294 x10^3/uL (140-400) Neutrophils (%) (Auto) 55 % (31-73) Lymphocytes (%) (Auto) 31 % (24-48) Monocytes (%) (Auto) 8 % (0-9) Eosinophils (%) (Auto) 6 % (0-3) Basophils (%) (Auto) 1 % (0-3) Neutrophils # (Auto) 4.2 x10^3uL (1.8-7.7) Lymphocytes # (Auto) 2.3 x10^3/uL (1.0-4.8) Monocytes # (Auto) 0.6 x10^3/uL (0.0-1.1) Eosinophils # (Auto) 0.5 x10^3/uL (0.0-0.7) Basophils # (Auto) 0.1 x10^3/uL (0.0-0.2) Sodium Level 135 mmol/L (136-145) Potassium Level 4.5 mmol/L (3.5-5.1) Chloride Level 101 mmol/L (98-107) Carbon Dioxide Level 30 mmol/L (21-32) Anion Gap 4 (6-14) Blood Urea Nitrogen 22 mg/dL (7-20) Creatinine 1.1 mg/dL (0.6-1.0) Estimated GFR (Cockcroft-Gault) 49.2 Glucose Level 85 mg/dL (70-99) Calcium Level 8.9 mg/dL (8.5-10.1) Test 03/24/17 08:05 03/24/17 11:53 03/24/17 16:40 03/24/17 16:46 Glucose (Fingerstick) 82 mg/dL (70-99) 192 mg/dL (70-99) 126 mg/dL (70-99) Erythrocyte Sedimentation Rate 61 (0-25) Prothrombin Time 13.0 SEC (11.7-14.0) Prothromb Time International Ratio 1.0 (0.8-1.1) C-Reactive Protein High Sensitivity 12.95 mg/L (0.00-3.00) Thyroid Stimulating Hormone (TSH) 4.791 uIU/mL (0.358-3.74) Test 03/24/17 20:38 03/25/17 01:20 03/25/17 04:20 03/25/17 07:58 Glucose (Fingerstick) 110 mg/dL (70-99) 93 mg/dL (70-99) Urine Collection Type Unknown Urine Color Yellow Urine Clarity Clear Urine pH 7.0 Urine Specific [place] <=1.005 Urine Protein Negative mg/dL (NEG-TRACE) Urine Glucose (UA) Negative mg/dL (NEG) Urine Ketones (Stick) Negative mg/dL (NEG) Urine Blood Negative (NEG) Urine Nitrite Negative (NEG) Urine Bilirubin Negative (NEG) Urine Urobilinogen Dipstick 0.2 mg/dL (0.2 mg/dL) Urine Leukocyte Esterase Negative (NEG) Urine RBC 0 /HPF (0-2) Urine WBC Occ /HPF (0-4) Urine Squamous Epithelial Cells Few /LPF Urine Bacteria 0 /HPF (0-FEW) Urine Mucus Slight /LPF White Blood Count 7.8 x10^3/uL (4.0-11.0) Red Blood Count 3.41 x10^6/uL (3.50-5.40) Hemoglobin 9.3 g/dL (12.0-15.5) Hematocrit 28.0 % (36.0-47.0) Mean Corpuscular Volume 82 fL (79-100) Mean Corpuscular Hemoglobin 27 pg (25-35) Mean Corpuscular Hemoglobin Concent 33 g/dL (31-37) Red Cell Distribution Width 16.6 % (11.5-14.5) Platelet Count 314 x10^3/uL (140-400) Neutrophils (%) (Auto) 52 % (31-73) Lymphocytes (%) (Auto) 34 % (24-48) Monocytes (%) (Auto) 9 % (0-9) Eosinophils (%) (Auto) 5 % (0-3) Basophils (%) (Auto) 1 % (0-3) Neutrophils # (Auto) 4.0 x10^3uL (1.8-7.7) Lymphocytes # (Auto) 2.6 x10^3/uL (1.0-4.8) Monocytes # (Auto) 0.7 x10^3/uL (0.0-1.1) Eosinophils # (Auto) 0.4 x10^3/uL (0.0-0.7) Basophils # (Auto) 0.1 x10^3/uL (0.0-0.2) Sodium Level 134 mmol/L (136-145) Potassium Level 3.9 mmol/L (3.5-5.1) Chloride Level 98 mmol/L (98-107) Carbon Dioxide Level 31 mmol/L (21-32) Anion Gap 5 (6-14) Blood Urea Nitrogen 25 mg/dL (7-20) Creatinine 1.1 mg/dL (0.6-1.0) Estimated GFR (Cockcroft-Gault) 49.2 Glucose Level 100 mg/dL (70-99) Calcium Level 9.2 mg/dL (8.5-10.1) Laboratory Tests Test 03/24/17 16:40 03/24/17 16:46 03/24/17 20:38 03/25/17 01:20 Erythrocyte Sedimentation Rate 61 (0-25) Prothrombin Time 13.0 SEC (11.7-14.0) Prothromb Time International Ratio 1.0 (0.8-1.1) C-Reactive Protein High Sensitivity 12.95 mg/L (0.00-3.00) Thyroid Stimulating Hormone (TSH) 4.791 uIU/mL (0.358-3.74) Glucose (Fingerstick) 126 mg/dL (70-99) 110 mg/dL (70-99) Urine Collection Type Unknown Urine Color Yellow Urine Clarity Clear Urine pH 7.0 Urine Specific [place] <=1.005 Urine Protein Negative mg/dL (NEG-TRACE) Urine Glucose (UA) Negative mg/dL (NEG) Urine Ketones (Stick) Negative mg/dL (NEG) Urine Blood Negative (NEG) Urine Nitrite Negative (NEG) Urine Bilirubin Negative (NEG) Urine Urobilinogen Dipstick 0.2 mg/dL (0.2 mg/dL) Urine Leukocyte Esterase Negative (NEG) Urine RBC 0 /HPF (0-2) Urine WBC Occ /HPF (0-4) Urine Squamous Epithelial Cells Few /LPF Urine Bacteria 0 /HPF (0-FEW) Urine Mucus Slight /LPF Test 03/25/17 04:20 03/25/17 07:58 White Blood Count 7.8 x10^3/uL (4.0-11.0) Red Blood Count 3.41 x10^6/uL (3.50-5.40) Hemoglobin 9.3 g/dL (12.0-15.5) Hematocrit 28.0 % (36.0-47.0) Mean Corpuscular Volume 82 fL (79-100) Mean Corpuscular Hemoglobin 27 pg (25-35) Mean Corpuscular Hemoglobin Concent 33 g/dL (31-37) Red Cell Distribution Width 16.6 % (11.5-14.5) Platelet Count 314 x10^3/uL (140-400) Neutrophils (%) (Auto) 52 % (31-73) Lymphocytes (%) (Auto) 34 % (24-48) Monocytes (%) (Auto) 9 % (0-9) Eosinophils (%) (Auto) 5 % (0-3) Basophils (%) (Auto) 1 % (0-3) Neutrophils # (Auto) 4.0 x10^3uL (1.8-7.7) Lymphocytes # (Auto) 2.6 x10^3/uL (1.0-4.8) Monocytes # (Auto) 0.7 x10^3/uL (0.0-1.1) Eosinophils # (Auto) 0.4 x10^3/uL (0.0-0.7) Basophils # (Auto) 0.1 x10^3/uL (0.0-0.2) Sodium Level 134 mmol/L (136-145) Potassium Level 3.9 mmol/L (3.5-5.1) Chloride Level 98 mmol/L (98-107) Carbon Dioxide Level 31 mmol/L (21-32) Anion Gap 5 (6-14) Blood Urea Nitrogen 25 mg/dL (7-20) Creatinine 1.1 mg/dL (0.6-1.0) Estimated GFR (Cockcroft-Gault) 49.2 Glucose Level 100 mg/dL (70-99) Calcium Level 9.2 mg/dL (8.5-10.1) Glucose (Fingerstick) 93 mg/dL (70-99) Medications Active Scripts Medications Dose Route/Sig Max Daily Dose Days Date Category Zofran (Ondansetron Hcl) 4 Mg Tablet 1 Tab PO PRN Q6-8HRS 03/23/17 Reported Tylenol With Codeine #3 Tablet (Acetaminophen/Codeine Phosphate) 1 Each Tablet 1 Tab PO PRN Q4HRS PRN 03/23/17 Reported [Ivig] 1 Q4WK 03/23/17 Reported Probiotic (Lactobacillus Acidophilus) 1 Each Capsule 1 Each PO DAILY 03/23/17 Reported Multivitamins (Multivitamin) 1 Each Tablet 1 Tab PO DAILY 03/23/17 Reported Gabapentin 600 Mg Tablet 600 Mg PO BID 03/23/17 Reported Levemir (Insulin Detemir) 100 Unit/1 Ml Vial 29 Unit SQ QHS 03/23/17 Reported Flonase Allergy Relief (Fluticasone Propionate) 9.9 Ml [place].susp 2 Sprays NS BID 03/23/17 Reported Carvedilol 12.5 Mg Tablet 1 Tab PO BID 03/23/17 Reported Escitalopram Oxalate 20 Mg Tablet 1 Tab PO DAILY 03/23/17 Reported Levo-T (Levothyroxine Sodium) 112 Mcg Tablet 112 Mcg PO QHS 03/23/17 Reported Atorvastatin Calcium 20 Mg Tablet 20 Mg PO HS 03/23/17 Reported Topamax (Topiramate) 25 Mg Tablet 1 Tab PO QHS 03/23/17 Reported Clonazepam 1 Mg Tablet 0.5 Tab PO QHS 03/23/17 Reported Glimepiride 4 Mg Tablet 1 Tab PO DAILYWLUN 03/23/17 Reported Glimepiride 1 Mg Tablet 1 Tab PO DAILYWSUP 03/23/17 Reported Vitamin D3 (Cholecalciferol (Vitamin D3)) 5,000 Unit Tablet 1 Tab PO DAILY 03/23/17 Reported Potassium Chloride 10 Meq Capsule.er 10 Meq PO DAILY 03/23/17 Reported Losartan-Hctz 50-12.5 Mg Tab (Losartan/Hydrochlorothiazide) 1 Each Tablet 1 Tab PO DAILY 03/23/17 Reported Miralax (Polyethylene Glycol 3350) 17 Gm Powd.pack 1 Packet PO DAILY 03/23/17 Reported Mirtazapine 7.5 Mg Tablet 7.5 Mg PO QHS 10/16/14 Reported Omeprazole 10 Mg Capsule.dr 30 Mg PO DAILY 10/16/14 Reported Aspirin 81 Mg Tab.chew 1 Tab PO DAILY 10/16/14 Reported Impression . 1. Acute hypercapnic respiratory failure. 2. Obstructive sleep apnea/obesity hypoventilation syndrome. 3. Secondary pulmonary hypertension, pulmonary artery pressure measured at 48 mmHg. 4. Morbid obesity, body mass index of 41.8. 5. Recent left shoulder surgery. 6. Possible pneumonia POA IMPRESSION: Volume loss at the right lung base compatible with atelectasis, scar or pneumonia. Plan . D/W DR MARTIN D/C FOLLOW UP OUTPT AVOID EXCESSIVE SEDATION ERICA DIAZ MD Mar 25, 2017 12:41
--- NOTE | 2017-03-25 13:44 | RAD ---
INDICATION: Worsening headaches. TECHNIQUE: Sagittal T1, axial T1, axial T2, axial FLAIR, axial T2 gradient, diffusion imaging with ADC map, postcontrast axial, and postcontrast coronal sequences are provided. Postcontrast axial sequence was repeated for mild motion. Study overall is degraded by mild motion. 10 mL of intravenous Gadavist was administered without complication. Comparison is from October 16, 2013. FINDINGS:There are a few nonspecific FLAIR hyperintensities in the supratentorial white matter, most notably subinsular. These are nonspecific but most suggestive of minimal small vessel ischemic disease. There is no acute intracranial hemorrhage or extra-axial fluid collection. There is no mass effect or midline shift. There is no restricted diffusion to suggest an acute infarct. Sagittal midline structures are unremarkable. The pituitary and suprasellar region are unremarkable. Intracranial flow voids are preserved. There is no pathologic enhancement. There is maxillary and sphenoid mucosal thickening. There probably has been ethmoid bullectomy and widening of the maxillary ostia with resection or medialization of the middle turbinates. The lamina papyracea is deviated medially bilaterally, not clear if this is result of surgery or remote trauma. IMPRESSION: 1. Brain parenchymal volume loss and minimal probable small vessel ischemic disease. 2. No acute intracranial findings. Electronically signed by: Flavio Hubbard MD (03/25/2017 1:41 PM) [id number]
--- NOTE | 2017-03-25 14:15 | PDOC ---
PROGRESS NOTES Chief Complaint Chief Complaint acute hypoxic and hypercapnic resp failure, 2/2 CAP vs. sedative meds obesity hypoventilation h/o CAD post PCI htn dm2 on insulin hypothyroidism morbid obesity recent left shoulder fx post sx mild malnutrition elevated troponin with demanding ischemia moderate PHTN headache h/o migraine plan: fu with card, pulm cont home meds duoneb, cough meds, add levaquin on insulin, decrease levemir to 20u qhs, SSI echo done, EF 55%, moderate PHTN NC as needed, CPAP at night dvt ppx PTOT neuro consult, MRI brain neg. add NSAIDS sw for rehab lasix x1 cxr repeated better hope dc tmr to rehab History of Present Illness History of Present Illness ROS: no fever, chills, sob or chest pain still feels mild hardness to find words to say severe headache, but said it is not her routine migraine , fu with dr. Azevedo poor home environment, wants to go to rehab breathing better took high dose gabapentin and tylenol 3 at home post sx Vitals Vitals Vital Signs Date Time Temp Pulse Resp B/P (MAP) Pulse Ox O2 Delivery O2 Flow Rate FiO2 03/25/17 11:19 98 Room Air 03/25/17 11:00 98.4 75 19 157/79 (105) 2.0 98.4 Physical Exam General: Alert, Cooperative Heart: Normal S1, Normal S2 Lungs: Clear Abdomen: Soft, Other (truncal obesity) Extremities: No edema, Normal pulses Skin: No rashes Labs LABS Laboratory Tests Test 03/24/17 16:40 03/24/17 16:46 03/24/17 20:38 03/25/17 01:20 Erythrocyte Sedimentation Rate 61 (0-25) Prothrombin Time 13.0 SEC (11.7-14.0) Prothromb Time International Ratio 1.0 (0.8-1.1) C-Reactive Protein High Sensitivity 12.95 mg/L (0.00-3.00) Thyroid Stimulating Hormone (TSH) 4.791 uIU/mL (0.358-3.74) Glucose (Fingerstick) 126 mg/dL (70-99) 110 mg/dL (70-99) Urine Collection Type Unknown Urine Color Yellow Urine Clarity Clear Urine pH 7.0 Urine Specific [place] <=1.005 Urine Protein Negative mg/dL (NEG-TRACE) Urine Glucose (UA) Negative mg/dL (NEG) Urine Ketones (Stick) Negative mg/dL (NEG) Urine Blood Negative (NEG) Urine Nitrite Negative (NEG) Urine Bilirubin Negative (NEG) Urine Urobilinogen Dipstick 0.2 mg/dL (0.2 mg/dL) Urine Leukocyte Esterase Negative (NEG) Urine RBC 0 /HPF (0-2) Urine WBC Occ /HPF (0-4) Urine Squamous Epithelial Cells Few /LPF Urine Bacteria 0 /HPF (0-FEW) Urine Mucus Slight /LPF Test 03/25/17 04:20 03/25/17 07:58 White Blood Count 7.8 x10^3/uL (4.0-11.0) Red Blood Count 3.41 x10^6/uL (3.50-5.40) Hemoglobin 9.3 g/dL (12.0-15.5) Hematocrit 28.0 % (36.0-47.0) Mean Corpuscular Volume 82 fL (79-100) Mean Corpuscular Hemoglobin 27 pg (25-35) Mean Corpuscular Hemoglobin Concent 33 g/dL (31-37) Red Cell Distribution Width 16.6 % (11.5-14.5) Platelet Count 314 x10^3/uL (140-400) Neutrophils (%) (Auto) 52 % (31-73) Lymphocytes (%) (Auto) 34 % (24-48) Monocytes (%) (Auto) 9 % (0-9) Eosinophils (%) (Auto) 5 % (0-3) Basophils (%) (Auto) 1 % (0-3) Neutrophils # (Auto) 4.0 x10^3uL (1.8-7.7) Lymphocytes # (Auto) 2.6 x10^3/uL (1.0-4.8) Monocytes # (Auto) 0.7 x10^3/uL (0.0-1.1) Eosinophils # (Auto) 0.4 x10^3/uL (0.0-0.7) Basophils # (Auto) 0.1 x10^3/uL (0.0-0.2) Sodium Level 134 mmol/L (136-145) Potassium Level 3.9 mmol/L (3.5-5.1) Chloride Level 98 mmol/L (98-107) Carbon Dioxide Level 31 mmol/L (21-32) Anion Gap 5 (6-14) Blood Urea Nitrogen 25 mg/dL (7-20) Creatinine 1.1 mg/dL (0.6-1.0) Estimated GFR (Cockcroft-Gault) 49.2 Glucose Level 100 mg/dL (70-99) Calcium Level 9.2 mg/dL (8.5-10.1) Glucose (Fingerstick) 93 mg/dL (70-99) Comment Review of Relevant I have reviewed the following items tung (where applicable) has been applied. Labs Laboratory Tests Test 03/23/17 16:47 03/23/17 21:07 03/24/17 05:30 03/24/17 08:05 Glucose (Fingerstick) 111 mg/dL (70-99) 110 mg/dL (70-99) 82 mg/dL (70-99) White Blood Count 7.7 x10^3/uL (4.0-11.0) Red Blood Count 3.44 x10^6/uL (3.50-5.40) Hemoglobin 9.4 g/dL (12.0-15.5) Hematocrit 28.0 % (36.0-47.0) Mean Corpuscular Volume 82 fL (79-100) Mean Corpuscular Hemoglobin 28 pg (25-35) Mean Corpuscular Hemoglobin Concent 34 g/dL (31-37) Red Cell Distribution Width 16.7 % (11.5-14.5) Platelet Count 294 x10^3/uL (140-400) Neutrophils (%) (Auto) 55 % (31-73) Lymphocytes (%) (Auto) 31 % (24-48) Monocytes (%) (Auto) 8 % (0-9) Eosinophils (%) (Auto) 6 % (0-3) Basophils (%) (Auto) 1 % (0-3) Neutrophils # (Auto) 4.2 x10^3uL (1.8-7.7) Lymphocytes # (Auto) 2.3 x10^3/uL (1.0-4.8) Monocytes # (Auto) 0.6 x10^3/uL (0.0-1.1) Eosinophils # (Auto) 0.5 x10^3/uL (0.0-0.7) Basophils # (Auto) 0.1 x10^3/uL (0.0-0.2) Sodium Level 135 mmol/L (136-145) Potassium Level 4.5 mmol/L (3.5-5.1) Chloride Level 101 mmol/L (98-107) Carbon Dioxide Level 30 mmol/L (21-32) Anion Gap 4 (6-14) Blood Urea Nitrogen 22 mg/dL (7-20) Creatinine 1.1 mg/dL (0.6-1.0) Estimated GFR (Cockcroft-Gault) 49.2 Glucose Level 85 mg/dL (70-99) Calcium Level 8.9 mg/dL (8.5-10.1) Test 03/24/17 11:53 03/24/17 16:40 03/24/17 16:46 03/24/17 20:38 Glucose (Fingerstick) 192 mg/dL (70-99) 126 mg/dL (70-99) 110 mg/dL (70-99) Erythrocyte Sedimentation Rate 61 (0-25) Prothrombin Time 13.0 SEC (11.7-14.0) Prothromb Time International Ratio 1.0 (0.8-1.1) C-Reactive Protein High Sensitivity 12.95 mg/L (0.00-3.00) Thyroid Stimulating Hormone (TSH) 4.791 uIU/mL (0.358-3.74) Test 03/25/17 01:20 03/25/17 04:20 03/25/17 07:58 Urine Collection Type Unknown Urine Color Yellow Urine Clarity Clear Urine pH 7.0 Urine Specific [place] <=1.005 Urine Protein Negative mg/dL (NEG-TRACE) Urine Glucose (UA) Negative mg/dL (NEG) Urine Ketones (Stick) Negative mg/dL (NEG) Urine Blood Negative (NEG) Urine Nitrite Negative (NEG) Urine Bilirubin Negative (NEG) Urine Urobilinogen Dipstick 0.2 mg/dL (0.2 mg/dL) Urine Leukocyte Esterase Negative (NEG) Urine RBC 0 /HPF (0-2) Urine WBC Occ /HPF (0-4) Urine Squamous Epithelial Cells Few /LPF Urine Bacteria 0 /HPF (0-FEW) Urine Mucus Slight /LPF White Blood Count 7.8 x10^3/uL (4.0-11.0) Red Blood Count 3.41 x10^6/uL (3.50-5.40) Hemoglobin 9.3 g/dL (12.0-15.5) Hematocrit 28.0 % (36.0-47.0) Mean Corpuscular Volume 82 fL (79-100) Mean Corpuscular Hemoglobin 27 pg (25-35) Mean Corpuscular Hemoglobin Concent 33 g/dL (31-37) Red Cell Distribution Width 16.6 % (11.5-14.5) Platelet Count 314 x10^3/uL (140-400) Neutrophils (%) (Auto) 52 % (31-73) Lymphocytes (%) (Auto) 34 % (24-48) Monocytes (%) (Auto) 9 % (0-9) Eosinophils (%) (Auto) 5 % (0-3) Basophils (%) (Auto) 1 % (0-3) Neutrophils # (Auto) 4.0 x10^3uL (1.8-7.7) Lymphocytes # (Auto) 2.6 x10^3/uL (1.0-4.8) Monocytes # (Auto) 0.7 x10^3/uL (0.0-1.1) Eosinophils # (Auto) 0.4 x10^3/uL (0.0-0.7) Basophils # (Auto) 0.1 x10^3/uL (0.0-0.2) Sodium Level 134 mmol/L (136-145) Potassium Level 3.9 mmol/L (3.5-5.1) Chloride Level 98 mmol/L (98-107) Carbon Dioxide Level 31 mmol/L (21-32) Anion Gap 5 (6-14) Blood Urea Nitrogen 25 mg/dL (7-20) Creatinine 1.1 mg/dL (0.6-1.0) Estimated GFR (Cockcroft-Gault) 49.2 Glucose Level 100 mg/dL (70-99) Calcium Level 9.2 mg/dL (8.5-10.1) Glucose (Fingerstick) 93 mg/dL (70-99) Laboratory Tests Test 03/24/17 16:40 03/24/17 16:46 03/24/17 20:38 03/25/17 01:20 Erythrocyte Sedimentation Rate 61 (0-25) Prothrombin Time 13.0 SEC (11.7-14.0) Prothromb Time International Ratio 1.0 (0.8-1.1) C-Reactive Protein High Sensitivity 12.95 mg/L (0.00-3.00) Thyroid Stimulating Hormone (TSH) 4.791 uIU/mL (0.358-3.74) Glucose (Fingerstick) 126 mg/dL (70-99) 110 mg/dL (70-99) Urine Collection Type Unknown Urine Color Yellow Urine Clarity Clear Urine pH 7.0 Urine Specific [place] <=1.005 Urine Protein Negative mg/dL (NEG-TRACE) Urine Glucose (UA) Negative mg/dL (NEG) Urine Ketones (Stick) Negative mg/dL (NEG) Urine Blood Negative (NEG) Urine Nitrite Negative (NEG) Urine Bilirubin Negative (NEG) Urine Urobilinogen Dipstick 0.2 mg/dL (0.2 mg/dL) Urine Leukocyte Esterase Negative (NEG) Urine RBC 0 /HPF (0-2) Urine WBC Occ /HPF (0-4) Urine Squamous Epithelial Cells Few /LPF Urine Bacteria 0 /HPF (0-FEW) Urine Mucus Slight /LPF Test 03/25/17 04:20 03/25/17 07:58 White Blood Count 7.8 x10^3/uL (4.0-11.0) Red Blood Count 3.41 x10^6/uL (3.50-5.40) Hemoglobin 9.3 g/dL (12.0-15.5) Hematocrit 28.0 % (36.0-47.0) Mean Corpuscular Volume 82 fL (79-100) Mean Corpuscular Hemoglobin 27 pg (25-35) Mean Corpuscular Hemoglobin Concent 33 g/dL (31-37) Red Cell Distribution Width 16.6 % (11.5-14.5) Platelet Count 314 x10^3/uL (140-400) Neutrophils (%) (Auto) 52 % (31-73) Lymphocytes (%) (Auto) 34 % (24-48) Monocytes (%) (Auto) 9 % (0-9) Eosinophils (%) (Auto) 5 % (0-3) Basophils (%) (Auto) 1 % (0-3) Neutrophils # (Auto) 4.0 x10^3uL (1.8-7.7) Lymphocytes # (Auto) 2.6 x10^3/uL (1.0-4.8) Monocytes # (Auto) 0.7 x10^3/uL (0.0-1.1) Eosinophils # (Auto) 0.4 x10^3/uL (0.0-0.7) Basophils # (Auto) 0.1 x10^3/uL (0.0-0.2) Sodium Level 134 mmol/L (136-145) Potassium Level 3.9 mmol/L (3.5-5.1) Chloride Level 98 mmol/L (98-107) Carbon Dioxide Level 31 mmol/L (21-32) Anion Gap 5 (6-14) Blood Urea Nitrogen 25 mg/dL (7-20) Creatinine 1.1 mg/dL (0.6-1.0) Estimated GFR (Cockcroft-Gault) 49.2 Glucose Level 100 mg/dL (70-99) Calcium Level 9.2 mg/dL (8.5-10.1) Glucose (Fingerstick) 93 mg/dL (70-99) Medications Current Medications Hydralazine HCl (Apresoline Inj) 10 mg PRN Q4HRS PRN IVP ELEVATED BP, SEE COMMENTS; Start 03/23/17 at 02:00; Status Cancel Ketorolac Tromethamine (Toradol) 15 mg PRN Q6HRS PRN IV PAIN Last administered on 03/24/17 09:17; Start 03/23/17 at 02:30; Stop 03/28/17 at 02:29 Aspirin (Children'S Aspirin) 81 mg DAILY PO Last administered on 03/25/17 08: 37; Start 03/23/17 at 10:00 Atorvastatin Calcium (Lipitor) 20 mg HS PO Last administered on 03/24/17 21: 06; Start 03/23/17 at 21:00 Carvedilol (Coreg) 12.5 mg BIDWMEALS PO Last administered on 03/25/17 08:39; Start 03/23/17 at 10:00 Clonazepam (KlonoPIN) 0.5 mg QHS PO Last administered on 03/24/17 21:07; Start 03/23/17 at 21:00 Levothyroxine Sodium (Synthroid) 112 mcg QHS PO Last administered on 21:07; Start 03/23/17 at 21:00 Mirtazapine (Remeron) 7.5 mg QHS PO Last administered on 03/24/17 21:07; Start 03/23/17 at 21:00 Polyethylene Glycol (miraLAX PACKET) 17 gm DAILY PO Last administered on 10:23; Start 03/23/17 at 10:00; Stop 03/24/17 at 09:30; Status DC Topiramate (Topamax) 25 mg QHS PO Last administered on 03/23/17 21:56; Start 03/23/17 at 21:00; Stop 03/24/17 at 20:29; Status DC Vitamin D (Vitamin D3) 5,000 unit DAILY PO Last administered on 03/25/17 08: 38; Start 03/23/17 at 10:00 Citalopram Hydrobromide (CeleXA) 40 mg DAILY PO Last administered on 08:38; Start 03/23/17 at 10:00 Fluticasone Propionate (Flonase) 2 spray DAILY NS Last administered on 08:43; Start 03/23/17 at 10:30 Gabapentin (Neurontin) 600 mg BID PO Last administered on 03/25/17 08:38; Start 03/23/17 at 10:00 Glimepiride (Amaryl) 4 mg DAILYWSUP PO Last administered on 03/25/17 08:37; Start 03/24/17 at 17:00 Insulin Detemir (Levemir) 29 units QHS SQ ; Start 03/23/17 at 21:00; Stop at 21:00; Status DC Non-Formulary Medication 1 tab DAILY PO ; Start 03/24/17 at 09:00; Status UNV Multivitamins (Thera M Plus) 1 tab DAILY PO Last administered on 03/25/17 08: 37; Start 03/23/17 at 10:00 Pantoprazole Sodium (Protonix) 40 mg DAILYAC PO Last administered on 08:37; Start 03/23/17 at 10:00 Potassium Chloride (Klor-Con) 10 meq DAILYWBKFT PO Last administered on 08:39; Start 03/23/17 at 10:00 Insulin Detemir (Levemir) 20 units QHS SQ Last administered on 03/24/17 21:10 ; Start 03/23/17 at 21:00 Acetaminophen (Tylenol) 650 mg PRN Q6HRS PRN PO FEVER Last administered on 05:48; Start 03/23/17 at 09:45 Ondansetron HCl (Zofran) 4 mg PRN Q6HRS PRN IV NAUSEA/VOMITING Last administered on 03/24/17 10:26; Start 03/23/17 at 09:45 Morphine Sulfate 2 mg PRN Q2HR PRN IV PAIN; Start 03/23/17 at 09:45 Tramadol HCl (Ultram) 50 mg PRN Q6HRS PRN PO PAIN Last administered on 03:06; Start 03/23/17 at 09:45 Hydralazine HCl (Apresoline Inj) 10 mg PRN Q4HRS PRN IVP ELEVATED BP, SEE COMMENTS; Start 03/23/17 at 09:45 Docusate Sodium (Colace) 100 mg PRN DAILY PRN PO CONSTIPATION; Start 03/23/17 at 09:45 Albuterol/ Ipratropium (Duoneb) 3 ml RTQID NEB Last administered on 03/25/17 11:15; Start 03/23/17 at 12:00 Albuterol Sulfate (Ventolin Neb Soln) 2.5 mg PRN Q2HR PRN NEB SHORTNESS OF BREATH; Start 03/23/17 at 09:45 Guaifenesin (Mucinex) 600 mg BID PO Last administered on 03/25/17 08:37; Start 03/23/17 at 10:30 Insulin Aspart (NovoLOG) 0-9 UNITS TIDWMEALS SQ Last administered on 13:30; Start 03/23/17 at 12:00 Dextrose (Dextrose 50%-Water Syringe) 12.5 gm PRN Q15MIN PRN IV SEE COMMENTS; Start 03/23/17 at 09:45 Losartan Potassium (Cozaar) 50 mg DAILY PO Last administered on 03/25/17 08: 38; Start 03/23/17 at 10:00 Hydrochlorothiazide (Microzide) 12.5 mg DAILY PO Last administered on 08:39; Start 03/23/17 at 10:00 Levofloxacin/ Dextrose 150 ml @ 100 mls/hr Q24H IV Last administered on 13:37; Start 03/23/17 at 14:00 Enoxaparin Sodium (Lovenox 40mg Syringe) 40 mg BID SQ Last administered on 08:37; Start 03/23/17 at 14:00 Polyethylene Glycol (miraLAX PACKET) 17 gm QHS PO Last administered on 21:06; Start 03/24/17 at 21:00 Ibuprofen (Motrin) 600 mg PRN Q6HRS PRN PO INFLAMMATION; Start 03/24/17 at 12: 00 Furosemide (Lasix) 20 mg 1X ONCE IVP Last administered on 03/24/17 16:29; Start 03/24/17 at 14:45; Stop 03/24/17 at 14:48; Status DC Topiramate (Topamax) 25 mg BID PO Last administered on 03/25/17 08:39; Start 03/24/17 at 21:00 Gadobutrol (Gadavist) 10 mmol 1X ONCE IV Last administered on 03/25/17 12:30 ; Start 03/25/17 at 12:30; Stop 03/25/17 at 12:32; Status DC Active Scripts Active Reported Zofran (Ondansetron Hcl) 4 Mg Tablet 1 Tab PO PRN Q6-8HRS Tylenol With Codeine #3 Tablet (Acetaminophen/Codeine Phosphate) 1 Each Tablet 1 Tab PO PRN Q4HRS PRN [Ivig] 1 Q4WK Probiotic (Lactobacillus Acidophilus) 1 Each Capsule 1 Each PO DAILY Multivitamins (Multivitamin) 1 Each Tablet 1 Tab PO DAILY Gabapentin 600 Mg Tablet 600 Mg PO BID Levemir (Insulin Detemir) 100 Unit/1 Ml Vial 29 Unit SQ QHS Flonase Allergy Relief (Fluticasone Propionate) 9.9 Ml [place].susp 2 Sprays NS BID Carvedilol 12.5 Mg Tablet 1 Tab PO BID Escitalopram Oxalate 20 Mg Tablet 1 Tab PO DAILY Levo-T (Levothyroxine Sodium) 112 Mcg Tablet 112 Mcg PO QHS Atorvastatin Calcium 20 Mg Tablet 20 Mg PO HS Topamax (Topiramate) 25 Mg Tablet 1 Tab PO QHS Clonazepam 1 Mg Tablet 0.5 Tab PO QHS Glimepiride 4 Mg Tablet 1 Tab PO DAILYWLUN Glimepiride 1 Mg Tablet 1 Tab PO DAILYWSUP Vitamin D3 (Cholecalciferol (Vitamin D3)) 5,000 Unit Tablet 1 Tab PO DAILY Potassium Chloride 10 Meq Capsule.er 10 Meq PO DAILY Losartan-Hctz 50-12.5 Mg Tab (Losartan/Hydrochlorothiazide) 1 Each Tablet 1 Tab PO DAILY Miralax (Polyethylene Glycol 3350) 17 Gm Powd.pack 1 Packet PO DAILY Mirtazapine 7.5 Mg Tablet 7.5 Mg PO QHS Omeprazole 10 Mg Capsule.dr 30 Mg PO DAILY Aspirin 81 Mg Tab.chew 1 Tab PO DAILY Vitals/I & O Vital Sign - Last 24 Hours 03/24/17 03/24/17 03/24/17 03/24/17 15:11 15:30 16:30 19:25 Temp 97.9 98.1 97.9 98.1 Pulse 73 73 74 Resp 20 20 B/P (MAP) 128/74 (92) 128/74 115/67 (83) Pulse Ox 98 96 O2 Delivery Nasal Cannula Nasal Cannula Nasal Cannula O2 Flow Rate 2.0 2.0 2.0 03/24/17 03/24/17 03/24/17 03/25/17 20:00 20:17 23:10 03:10 Temp 98.6 98.5 98.6 98.5 Pulse 74 84 Resp 20 20 B/P (MAP) 136/72 (93) 149/82 (104) Pulse Ox 95 94 94 O2 Delivery Nasal Cannula Nasal Cannula BiPAP/CPAP BiPAP/CPAP O2 Flow Rate 2.0 2.0 03/25/17 03/25/17 03/25/17 03/25/17 07:00 08:00 08:38 08:39 Temp 98.8 98.8 Pulse 77 80 80 Resp 20 B/P (MAP) 122/69 (86) Pulse Ox 95 O2 Delivery Nasal Cannula Nasal Cannula O2 Flow Rate 2.0 2.0 03/25/17 03/25/17 03/25/17 09:18 11:00 11:19 Temp 98.4 98.4 Pulse 75 Resp 19 B/P (MAP) 157/79 (105) Pulse Ox 95 91 98 O2 Delivery Nasal Cannula Nasal Cannula Room Air O2 Flow Rate 2.0 2.0 LIANA MARTIN MD Mar 25, 2017 14:15
[2017-03-25 15:00] VITALS: BP 103/69
--- NOTE | 2017-03-25 16:33 | PDOC ---
PROGRESS NOTES Assessment Assessment Headache. Temporal arteritis? Metabolic encephalopathy. Respiratory distress/failure. Pneumonia? DM HTN CAD Anemia. Hypothyroidism. Cognitive impairment. Obesity. Elevated ESR. No evidence of acute CVA or brain tumor. RECOMMENDATIONS/PLAN: Pain control. Continue Topamax to 25 mg bid. May consider temporal A biopsy after MRI id headaches not improving ( thought anemia can cause ESR high). HISTORY OF THE PRESENT ILLNESS: 71-y-old female patient with Hx of chronic headaches for many years but was controlled by Topamax HS dosing. She had rotate cuff surgery this time stating her headaches became worse for 3 days. She also has symptoms of mental status changes, and cognitive function impairment and feeling generalized weakness. She stated on 03/25/17 that her headaches were sightly better. Past Medical History Cardiovascular: HTN Psych: Anxiety, Depression ENT: Sincusitis (chronic ) Endocrine: Diabetes, Hyperthyroidism, Hypothyroidism Past Surgical History Cholecystectomy Social History Smoke: No ALCOHOL: none Drugs: None ALLERGY: reviewed. MEDICATIONS: Refer to [facility] FAMILY HISTORY: Non contributory. SOCIAL HISTORY: Lives at home. Denies smoking, drinking, and illicit drug use. REVIEW OF SYSTEMS: Constitutional: No malnutrition, weight loss, cachexia. Head: No traumatic brain or head injury. Skin: No edema, or rash. Ear: No infection. Eyes: No vision loss or color blindness. Nose: No bleeding or purulent discharges. Hearing: No hearing decrease. Neck: No injury. Breast: No history of cancer, masses,or discharges. Cardiac: CAD, HTN, HLD. Pulmonary: No COPD. GI: No GI ulcer, GI bleeding, GERD. Urinary/genital: UTI. Endocrinologic: Diabetes Mellitus, hypothyroidism, obesity. Skeletomuscular: Generalized weakness. Neurological: see HP. Psychiatric: Denies drug use/abuse. Otherwise, not [id number] review of systems. PHYSICAL EXAMINATION: General appearance is in subacute distress. HEENT: Normocephalic and nontraumatic. Eyes, nose, ears, and throat are unremarkable. Neck is supple. No lymphadenopathy. No bruits are heard over the carotid artery. No crepitus. Cardiovascular: S1, S2, regular rate and rhythm. Pulmonary: Clear to auscultation bilaterally. Abdomen: Bowel sounds are positive. Abdomen is soft, nontender, and nondistended. Extremities: No rash, lesions, or edema. No restriction of range of motion NEUROLOGICAL EXAMINATION: Alert Oriented to time, place and person. PERRL. EOMI. CN: no focal findings. Muscle tone: within normal. Muscle strength: 5- DTR: 2 UE, 1+ at knee due to obesity. Plantar reflex: Flexor response bilaterally Gait: not examined in bed. Sensory exam: no abnormal findings. No cerebellar signs elicited. F-T-N test fine. Objective Objective Vital Signs Date Time Temp Pulse Resp B/P (MAP) Pulse Ox O2 Delivery O2 Flow Rate FiO2 03/25/17 15:00 97.2 82 20 103/69 (80) 93 Nasal Cannula 2.0 97.2 Vitals Signs Vitals VS - Last 72 Hours, by Label Date Time Temp Pulse Resp B/P (MAP) Pulse Ox O2 Delivery O2 Flow Rate FiO2 03/25/17 15:00 97.2 82 20 103/69 (80) 93 Nasal Cannula 2.0 97.2 03/25/17 14:50 Room Air 03/25/17 11:19 98 Room Air 03/25/17 11:00 98.4 75 19 157/79 (105) 91 Nasal Cannula 2.0 98.4 03/25/17 09:18 95 Nasal Cannula 2.0 03/25/17 08:39 80 03/25/17 08:38 80 03/25/17 08:00 Nasal Cannula 2.0 03/25/17 07:00 98.8 77 20 122/69 (86) 95 Nasal Cannula 2.0 98.8 03/25/17 03:10 98.5 84 20 149/82 (104) 94 BiPAP/CPAP 98.5 03/24/17 23:10 98.6 74 20 136/72 (93) 94 BiPAP/CPAP 98.6 03/24/17 20:17 95 Nasal Cannula 2.0 03/24/17 20:00 Nasal Cannula 2.0 03/24/17 19:25 98.1 74 20 115/67 (83) 96 Nasal Cannula 2.0 98.1 03/24/17 16:30 73 128/74 03/24/17 15:30 97.9 73 20 128/74 (92) 98 Nasal Cannula 2.0 97.9 03/24/17 15:11 Nasal Cannula 2.0 03/24/17 11:09 Nasal Cannula 2.0 03/24/17 11:00 97.8 79 20 148/86 (106) 95 Nasal Cannula 2.0 97.8 03/24/17 09:14 72 145/69 03/24/17 09:13 72 145/69 03/24/17 08:48 97.7 72 20 145/69 (94) 97 Room Air 97.7 03/24/17 08:00 Nasal Cannula 2.0 03/24/17 07:19 96 Nasal Cannula 2.0 Laboratory Laboratory Laboratory Tests Test 03/24/17 16:40 03/24/17 16:46 03/24/17 20:38 03/25/17 01:20 Erythrocyte Sedimentation Rate 61 (0-25) Prothrombin Time 13.0 SEC (11.7-14.0) Prothromb Time International Ratio 1.0 (0.8-1.1) C-Reactive Protein High Sensitivity 12.95 mg/L (0.00-3.00) Thyroid Stimulating Hormone (TSH) 4.791 uIU/mL (0.358-3.74) Glucose (Fingerstick) 126 mg/dL (70-99) 110 mg/dL (70-99) Urine Collection Type Unknown Urine Color Yellow Urine Clarity Clear Urine pH 7.0 Urine Specific [place] <=1.005 Urine Protein Negative mg/dL (NEG-TRACE) Urine Glucose (UA) Negative mg/dL (NEG) Urine Ketones (Stick) Negative mg/dL (NEG) Urine Blood Negative (NEG) Urine Nitrite Negative (NEG) Urine Bilirubin Negative (NEG) Urine Urobilinogen Dipstick 0.2 mg/dL (0.2 mg/dL) Urine Leukocyte Esterase Negative (NEG) Urine RBC 0 /HPF (0-2) Urine WBC Occ /HPF (0-4) Urine Squamous Epithelial Cells Few /LPF Urine Bacteria 0 /HPF (0-FEW) Urine Mucus Slight /LPF Test 03/25/17 04:20 03/25/17 07:58 03/25/17 11:42 White Blood Count 7.8 x10^3/uL (4.0-11.0) Red Blood Count 3.41 x10^6/uL (3.50-5.40) Hemoglobin 9.3 g/dL (12.0-15.5) Hematocrit 28.0 % (36.0-47.0) Mean Corpuscular Volume 82 fL (79-100) Mean Corpuscular Hemoglobin 27 pg (25-35) Mean Corpuscular Hemoglobin Concent 33 g/dL (31-37) Red Cell Distribution Width 16.6 % (11.5-14.5) Platelet Count 314 x10^3/uL (140-400) Neutrophils (%) (Auto) 52 % (31-73) Lymphocytes (%) (Auto) 34 % (24-48) Monocytes (%) (Auto) 9 % (0-9) Eosinophils (%) (Auto) 5 % (0-3) Basophils (%) (Auto) 1 % (0-3) Neutrophils # (Auto) 4.0 x10^3uL (1.8-7.7) Lymphocytes # (Auto) 2.6 x10^3/uL (1.0-4.8) Monocytes # (Auto) 0.7 x10^3/uL (0.0-1.1) Eosinophils # (Auto) 0.4 x10^3/uL (0.0-0.7) Basophils # (Auto) 0.1 x10^3/uL (0.0-0.2) Sodium Level 134 mmol/L (136-145) Potassium Level 3.9 mmol/L (3.5-5.1) Chloride Level 98 mmol/L (98-107) Carbon Dioxide Level 31 mmol/L (21-32) Anion Gap 5 (6-14) Blood Urea Nitrogen 25 mg/dL (7-20) Creatinine 1.1 mg/dL (0.6-1.0) Estimated GFR (Cockcroft-Gault) 49.2 Glucose Level 100 mg/dL (70-99) Calcium Level 9.2 mg/dL (8.5-10.1) Glucose (Fingerstick) 93 mg/dL (70-99) 221 mg/dL (70-99) Medication Medications Current Medications Gadobutrol (Gadavist) 10 mmol 1X ONCE IV Last administered on 03/25/17 12:30 ; Start 03/25/17 at 12:30; Stop 03/25/17 at 12:32; Status DC Glimepiride (Amaryl) 4 mg DAILYWSUP PO Last administered on 03/25/17 08:37; Start 03/24/17 at 17:00 Polyethylene Glycol (miraLAX PACKET) 17 gm QHS PO Last administered on 21:06; Start 03/24/17 at 21:00 Topiramate (Topamax) 25 mg BID PO Last administered on 03/25/17 08:39; Start 03/24/17 at 21:00 Comment Review of Relevant I have reviewed the following items tung (where applicable) has been applied. GLENN ESCOBEDO MD Mar 25, 2017 16:33
[2017-03-25] MEDS: KETOROLAC 15 MG/ML VIAL. IV PRN (19:26)
[2017-03-25 19:55] VITALS: BP 125/70
[2017-03-25] MEDS: MIRTAZAPINE 15 MG TABLET PO SCH (21:09)
[2017-03-25] MEDS: clonazePAM 0.5 MG TABLET PO SCH (21:09)
[2017-03-25] MEDS: LEVOTHYROXINE 112 MCG TABLET PO SCH (21:09)
[2017-03-25] MEDS: ATORVASTATIN CALCIUM 20 MG TABLET PO SCH (21:09)
[2017-03-25] MEDS: POLYETHYLENE GLYCOL 3350 17 GM PACKET. PO SCH (21:10)
[2017-03-25] MEDS: INSULIN DETEMIR 300 UNITS/3 ML INSULN.PEN. SQ SCH (21:12)
[2017-03-25] MEDS: IBUPROFEN 600 MG TABLET. PO PRN (21:21)
[2017-03-25 23:35] VITALS: BP 124/58
[2017-03-26 03:54] VITALS: BP 135/62
[2017-03-26] MEDS: traMADol 50 MG TABLET PO PRN ×2 (06:13→13:44)
[2017-03-26 07:00] VITALS: BP 107/68
[2017-03-26] MEDS: IPRATRPIUM/ALBUTEROL 0.5/2.5MG 3 ML NEBU. NEB SCH ×2 (07:12→11:04)
[2017-03-26] MEDS: INSULIN ASPART 300 UNITS/3 ML INSULN.PEN SQ SCH ×2 (08:00→12:22)
[2017-03-26] MEDS: POTASSIUM CHLORIDE 10 MEQ TABLET.ER. PO SCH (08:38)
[2017-03-26] MEDS: PANTOPRAZOLE 40 MG TABLET.DR. PO SCH (08:38)
[2017-03-26] MEDS: CARVEDILOL 12.5 MG TABLET. PO SCH (08:38)
[2017-03-26] MEDS: TOPIRAMATE 25 MG TABLET. PO SCH (08:38)
[2017-03-26] MEDS: LOSARTAN POTASSIUM 50 MG TABLET. PO SCH (08:39)
[2017-03-26] MEDS: MULTIVITAMIN with MINERAL TABLET. PO SCH (08:39)
[2017-03-26] MEDS: IBUPROFEN 600 MG TABLET. PO PRN (08:39)
[2017-03-26] MEDS: ASPIRIN CHEWABLE 81 MG TABLET. PO SCH (08:39)
[2017-03-26] MEDS: CHOLECALCIFEROL (VITAMIN D3) 5,000 UNIT CAPSULE PO SCH (08:39)
[2017-03-26] MEDS: ENOXAPARIN 40 MG/0.4 ML SYRINGE. SQ SCH (08:40)
[2017-03-26] MEDS: CITALOPRAM 20 MG TABLET. PO SCH (08:40)
[2017-03-26] MEDS: hydroCHLOROthiazide 12.5 MG CAPSULE PO SCH (08:40)
[2017-03-26] MEDS: GABAPENTIN 300 MG CAPSULE. PO SCH (08:40)
[2017-03-26] MEDS: FLUTICASONE 50MCG/NASAL SPRAY 16GM BOTTLE. NS SCH (08:42)
[2017-03-26 11:00] VITALS: BP 132/56
--- NOTE | 2017-03-26 12:07 | PDOC ---
PROGRESS NOTES Chief Complaint Chief Complaint acute hypoxic and hypercapnic resp failure, 2/2 CAP vs. sedative meds obesity hypoventilation h/o CAD post PCI htn dm2 on insulin hypothyroidism morbid obesity recent left shoulder fx post sx mild malnutrition elevated troponin with demanding ischemia moderate PHTN headache h/o migraine History of Present Illness History of Present Illness Pt seen at bedside. She is resting comfortably and in no acute distress. MRI brain and CXR both negative for acute process. Cardio is following-believe her Sx are not cardiac in nature. Pulm following-ok for d/c when cleared. Neuro following. No acute complaints at this time. Hopefull d/c to SNU if cleared by subspecialties. Will continue IV abx. Vitals Vitals Vital Signs Date Time Temp Pulse Resp B/P (MAP) Pulse Ox O2 Delivery O2 Flow Rate FiO2 03/26/17 11:06 Room Air 03/26/17 11:00 98.1 70 20 132/56 (81) 98 98.1 03/25/17 20:11 2.0 Physical Exam General: Alert, Cooperative, No acute distress Heart: Normal S1, Normal S2 Lungs: Clear Abdomen: Soft, Other (truncal obesity) Extremities: No edema, Normal pulses Skin: No rashes Labs LABS Laboratory Tests Test 03/25/17 16:55 03/25/17 21:09 03/26/17 10:48 Glucose (Fingerstick) 147 mg/dL (70-99) 129 mg/dL (70-99) 196 mg/dL (70-99) Review of Systems Review of Systems Gen: + fatigue, + hunger CV: No CP or palp Resp: No SOB or wheezing Neuro: + RUSSO, no dizziness or numbness Assessment and Plan Assessmemt and Plan Assessment: acute hypoxic and hypercapnic resp failure, 2/2 CAP vs. sedative meds obesity hypoventilation h/o CAD post PCI htn dm2 on insulin hypothyroidism morbid obesity recent left shoulder fx post sx mild malnutrition elevated troponin with demanding ischemia moderate PHTN headache h/o migraine Plan: cardio following pulm following neuro following labs rechecked MRI brain negative CXR negative Continue IV abx Probable d/c to SNU today if cleared by subspecialties Problems: Comment Review of Relevant I have reviewed the following items tung (where applicable) has been applied. Labs Laboratory Tests Test 03/24/17 16:40 03/24/17 16:46 03/24/17 20:38 03/25/17 01:20 Erythrocyte Sedimentation Rate 61 (0-25) Prothrombin Time 13.0 SEC (11.7-14.0) Prothromb Time International Ratio 1.0 (0.8-1.1) C-Reactive Protein High Sensitivity 12.95 mg/L (0.00-3.00) Thyroid Stimulating Hormone (TSH) 4.791 uIU/mL (0.358-3.74) Glucose (Fingerstick) 126 mg/dL (70-99) 110 mg/dL (70-99) Urine Collection Type Unknown Urine Color Yellow Urine Clarity Clear Urine pH 7.0 Urine Specific [place] <=1.005 Urine Protein Negative mg/dL (NEG-TRACE) Urine Glucose (UA) Negative mg/dL (NEG) Urine Ketones (Stick) Negative mg/dL (NEG) Urine Blood Negative (NEG) Urine Nitrite Negative (NEG) Urine Bilirubin Negative (NEG) Urine Urobilinogen Dipstick 0.2 mg/dL (0.2 mg/dL) Urine Leukocyte Esterase Negative (NEG) Urine RBC 0 /HPF (0-2) Urine WBC Occ /HPF (0-4) Urine Squamous Epithelial Cells Few /LPF Urine Bacteria 0 /HPF (0-FEW) Urine Mucus Slight /LPF Test 03/25/17 04:20 03/25/17 07:58 03/25/17 11:42 03/25/17 16:55 White Blood Count 7.8 x10^3/uL (4.0-11.0) Red Blood Count 3.41 x10^6/uL (3.50-5.40) Hemoglobin 9.3 g/dL (12.0-15.5) Hematocrit 28.0 % (36.0-47.0) Mean Corpuscular Volume 82 fL (79-100) Mean Corpuscular Hemoglobin 27 pg (25-35) Mean Corpuscular Hemoglobin Concent 33 g/dL (31-37) Red Cell Distribution Width 16.6 % (11.5-14.5) Platelet Count 314 x10^3/uL (140-400) Neutrophils (%) (Auto) 52 % (31-73) Lymphocytes (%) (Auto) 34 % (24-48) Monocytes (%) (Auto) 9 % (0-9) Eosinophils (%) (Auto) 5 % (0-3) Basophils (%) (Auto) 1 % (0-3) Neutrophils # (Auto) 4.0 x10^3uL (1.8-7.7) Lymphocytes # (Auto) 2.6 x10^3/uL (1.0-4.8) Monocytes # (Auto) 0.7 x10^3/uL (0.0-1.1) Eosinophils # (Auto) 0.4 x10^3/uL (0.0-0.7) Basophils # (Auto) 0.1 x10^3/uL (0.0-0.2) Sodium Level 134 mmol/L (136-145) Potassium Level 3.9 mmol/L (3.5-5.1) Chloride Level 98 mmol/L (98-107) Carbon Dioxide Level 31 mmol/L (21-32) Anion Gap 5 (6-14) Blood Urea Nitrogen 25 mg/dL (7-20) Creatinine 1.1 mg/dL (0.6-1.0) Estimated GFR (Cockcroft-Gault) 49.2 Glucose Level 100 mg/dL (70-99) Calcium Level 9.2 mg/dL (8.5-10.1) Glucose (Fingerstick) 93 mg/dL (70-99) 221 mg/dL (70-99) 147 mg/dL (70-99) Test 03/25/17 21:09 03/26/17 10:48 Glucose (Fingerstick) 129 mg/dL (70-99) 196 mg/dL (70-99) Laboratory Tests Test 03/25/17 16:55 03/25/17 21:09 03/26/17 10:48 Glucose (Fingerstick) 147 mg/dL (70-99) 129 mg/dL (70-99) 196 mg/dL (70-99) Medications Current Medications Hydralazine HCl (Apresoline Inj) 10 mg PRN Q4HRS PRN IVP ELEVATED BP, SEE COMMENTS; Start 03/23/17 at 02:00; Status Cancel Ketorolac Tromethamine (Toradol) 15 mg PRN Q6HRS PRN IV PAIN Last administered on 03/25/17t 19:26; Start 03/23/17 at 02:30; Stop 03/28/17 at 02:29 Aspirin (Children'S Aspirin) 81 mg DAILY PO Last administered on 03/26/17 08: 39; Start 03/23/17 at 10:00 Atorvastatin Calcium (Lipitor) 20 mg HS PO Last administered on 03/25/17 21: 09; Start 03/23/17 at 21:00 Carvedilol (Coreg) 12.5 mg BIDWMEALS PO Last administered on 03/26/17 08:38; Start 03/23/17 at 10:00 Clonazepam (KlonoPIN) 0.5 mg QHS PO Last administered on 03/25/17 21:09; Start 03/23/17 at 21:00 Levothyroxine Sodium (Synthroid) 112 mcg QHS PO Last administered on 21:09; Start 03/23/17 at 21:00 Mirtazapine (Remeron) 7.5 mg QHS PO Last administered on 03/25/17 21:09; Start 03/23/17 at 21:00 Polyethylene Glycol (miraLAX PACKET) 17 gm DAILY PO Last administered on 10:23; Start 03/23/17 at 10:00; Stop 03/24/17 at 09:30; Status DC Topiramate (Topamax) 25 mg QHS PO Last administered on 03/23/17 21:56; Start 03/23/17 at 21:00; Stop 03/24/17 at 20:29; Status DC Vitamin D (Vitamin D3) 5,000 unit DAILY PO Last administered on 03/26/17 08: 39; Start 03/23/17 at 10:00 Citalopram Hydrobromide (CeleXA) 40 mg DAILY PO Last administered on 08:40; Start 03/23/17 at 10:00 Fluticasone Propionate (Flonase) 2 spray DAILY NS Last administered on 08:42; Start 03/23/17 at 10:30 Gabapentin (Neurontin) 600 mg BID PO Last administered on 03/26/17 08:40; Start 03/23/17 at 10:00 Glimepiride (Amaryl) 4 mg DAILYWSUP PO Last administered on 03/25/17 08:37; Start 03/24/17 at 17:00 Insulin Detemir (Levemir) 29 units QHS SQ ; Start 03/23/17 at 21:00; Stop at 21:00; Status DC Non-Formulary Medication 1 tab DAILY PO ; Start 03/24/17 at 09:00; Status UNV Multivitamins (Thera M Plus) 1 tab DAILY PO Last administered on 03/26/17 08: 39; Start 03/23/17 at 10:00 Pantoprazole Sodium (Protonix) 40 mg DAILYAC PO Last administered on 08:38; Start 03/23/17 at 10:00 Potassium Chloride (Klor-Con) 10 meq DAILYWBKFT PO Last administered on 08:38; Start 03/23/17 at 10:00 Insulin Detemir (Levemir) 20 units QHS SQ Last administered on 03/25/17 21:12 ; Start 03/23/17 at 21:00 Acetaminophen (Tylenol) 650 mg PRN Q6HRS PRN PO FEVER Last administered on 16:53; Start 03/23/17 at 09:45 Ondansetron HCl (Zofran) 4 mg PRN Q6HRS PRN IV NAUSEA/VOMITING Last administered on 03/24/17 10:26; Start 03/23/17 at 09:45 Morphine Sulfate 2 mg PRN Q2HR PRN IV PAIN; Start 03/23/17 at 09:45 Tramadol HCl (Ultram) 50 mg PRN Q6HRS PRN PO PAIN Last administered on 06:13; Start 03/23/17 at 09:45 Hydralazine HCl (Apresoline Inj) 10 mg PRN Q4HRS PRN IVP ELEVATED BP, SEE COMMENTS; Start 03/23/17 at 09:45 Docusate Sodium (Colace) 100 mg PRN DAILY PRN PO CONSTIPATION; Start 03/23/17 at 09:45 Albuterol/ Ipratropium (Duoneb) 3 ml RTQID NEB Last administered on 03/26/17 11:04; Start 03/23/17 at 12:00 Albuterol Sulfate (Ventolin Neb Soln) 2.5 mg PRN Q2HR PRN NEB SHORTNESS OF BREATH; Start 03/23/17 at 09:45 Guaifenesin (Mucinex) 600 mg BID PO Last administered on 03/26/17 08:38; Start 03/23/17 at 10:30 Insulin Aspart (NovoLOG) 0-9 UNITS TIDWMEALS SQ Last administered on 13:30; Start 03/23/17 at 12:00 Dextrose (Dextrose 50%-Water Syringe) 12.5 gm PRN Q15MIN PRN IV SEE COMMENTS; Start 03/23/17 at 09:45 Losartan Potassium (Cozaar) 50 mg DAILY PO Last administered on 03/26/17 08: 39; Start 03/23/17 at 10:00 Hydrochlorothiazide (Microzide) 12.5 mg DAILY PO Last administered on 08:40; Start 03/23/17 at 10:00 Levofloxacin/ Dextrose 150 ml @ 100 mls/hr Q24H IV Last administered on 14:45; Start 03/23/17 at 14:00 Enoxaparin Sodium (Lovenox 40mg Syringe) 40 mg BID SQ Last administered on 08:40; Start 03/23/17 at 14:00 Polyethylene Glycol (miraLAX PACKET) 17 gm QHS PO Last administered on 21:10; Start 03/24/17 at 21:00 Ibuprofen (Motrin) 600 mg PRN Q6HRS PRN PO INFLAMMATION Last administered on 08:39; Start 03/24/17 at 12:00 Furosemide (Lasix) 20 mg 1X ONCE IVP Last administered on 03/24/17 16:29; Start 03/24/17 at 14:45; Stop 03/24/17 at 14:48; Status DC Topiramate (Topamax) 25 mg BID PO Last administered on 03/26/17 08:38; Start 03/24/17 at 21:00 Gadobutrol (Gadavist) 10 mmol 1X ONCE IV Last administered on 03/25/17 12:30 ; Start 03/25/17 at 12:30; Stop 03/25/17 at 12:32; Status DC Active Scripts Active Reported Zofran (Ondansetron Hcl) 4 Mg Tablet 1 Tab PO PRN Q6-8HRS Tylenol With Codeine #3 Tablet (Acetaminophen/Codeine Phosphate) 1 Each Tablet 1 Tab PO PRN Q4HRS PRN [Ivig] 1 Q4WK Probiotic (Lactobacillus Acidophilus) 1 Each Capsule 1 Each PO DAILY Multivitamins (Multivitamin) 1 Each Tablet 1 Tab PO DAILY Gabapentin 600 Mg Tablet 600 Mg PO BID Levemir (Insulin Detemir) 100 Unit/1 Ml Vial 29 Unit SQ QHS Flonase Allergy Relief (Fluticasone Propionate) 9.9 Ml [place].susp 2 Sprays NS BID Carvedilol 12.5 Mg Tablet 1 Tab PO BID Escitalopram Oxalate 20 Mg Tablet 1 Tab PO DAILY Levo-T (Levothyroxine Sodium) 112 Mcg Tablet 112 Mcg PO QHS Atorvastatin Calcium 20 Mg Tablet 20 Mg PO HS Topamax (Topiramate) 25 Mg Tablet 1 Tab PO QHS Clonazepam 1 Mg Tablet 0.5 Tab PO QHS Glimepiride 4 Mg Tablet 1 Tab PO DAILYWLUN Glimepiride 1 Mg Tablet 1 Tab PO DAILYWSUP Vitamin D3 (Cholecalciferol (Vitamin D3)) 5,000 Unit Tablet 1 Tab PO DAILY Potassium Chloride 10 Meq Capsule.er 10 Meq PO DAILY Losartan-Hctz 50-12.5 Mg Tab (Losartan/Hydrochlorothiazide) 1 Each Tablet 1 Tab PO DAILY Miralax (Polyethylene Glycol 3350) 17 Gm Powd.pack 1 Packet PO DAILY Mirtazapine 7.5 Mg Tablet 7.5 Mg PO QHS Omeprazole 10 Mg Capsule.dr 30 Mg PO DAILY Aspirin 81 Mg Tab.chew 1 Tab PO DAILY Vitals/I & O Vital Sign - Last 24 Hours 03/25/17 03/25/17 03/25/17 03/25/17 14:50 15:00 16:53 19:44 Temp 97.2 97.2 Pulse 82 85 Resp 20 B/P (MAP) 103/69 (80) Pulse Ox 93 O2 Delivery Room Air Nasal Cannula Room Air O2 Flow Rate 2.0 03/25/17 03/25/17 03/25/17 03/26/17 19:55 20:11 23:35 03:54 Temp 97.5 97.8 97.9 97.5 97.8 97.9 Pulse 72 82 74 Resp 20 20 20 B/P (MAP) 125/70 (88) 124/58 (80) 135/62 (86) Pulse Ox 94 95 94 O2 Delivery Room Air Nasal Cannula BiPAP/CPAP BiPAP/CPAP O2 Flow Rate 2.0 03/26/17 03/26/17 03/26/17 03/26/17 06:13 07:00 07:13 07:13 Temp 98.1 98.1 Pulse 72 Resp 18 20 B/P (MAP) 107/68 (81) Pulse Ox 94 97 98 O2 Delivery Room Air Room Air Room Air Room Air 03/26/17 03/26/17 03/26/17 03/26/17 08:38 08:39 11:00 11:06 Temp 98.1 98.1 Pulse 81 81 70 Resp 20 B/P (MAP) 107/68 107/68 132/56 (81) Pulse Ox 98 O2 Delivery Room Air Room Air Intake and Output 03/26/17 03/26/17 03/27/17 14:59 22:59 06:59 Intake Total 250 ml Balance 250 ml SILVANO LIGHT III DO Mar 26, 2017 12:07
--- NOTE | 2017-03-26 12:28 | PDOC ---
PROGRESS NOTES Assessment Assessment Headache. Temporal arteritis? Metabolic encephalopathy. Respiratory distress/failure. Pneumonia? DM HTN CAD Hypothyroidism. Cognitive impairment. Obesity. Elevated ESR. No evidence of acute CVA or brain tumor this time. RECOMMENDATIONS/PLAN: Pain control. Continue Topamax to 25 mg bid. Patient declined temporal A biopsy to help rule out temporal arteritis.. HISTORY OF THE PRESENT ILLNESS: 71-y-old female patient with Hx of chronic headaches for many years but was controlled by Topamax HS dosing. She had rotate cuff surgery this time stating her headaches became worse for 3 days. She also has symptoms of mental status changes, and cognitive function impairment and feeling generalized weakness. She stated that her headaches were much improved on 03/26/17. Past Medical History Cardiovascular: HTN Psych: Anxiety, Depression ENT: Sincusitis (chronic ) Endocrine: Diabetes, Hyperthyroidism, Hypothyroidism Past Surgical History Cholecystectomy Social History Smoke: No ALCOHOL: none Drugs: None ALLERGY: reviewed. MEDICATIONS: Refer to [facility] FAMILY HISTORY: Non contributory. SOCIAL HISTORY: Lives at home. Denies smoking, drinking, and illicit drug use. REVIEW OF SYSTEMS: Constitutional: No malnutrition, weight loss, cachexia. Head: No traumatic brain or head injury. Skin: No edema, or rash. Ear: No infection. Eyes: No vision loss or color blindness. Nose: No bleeding or purulent discharges. Hearing: No hearing decrease. Neck: No injury. Breast: No history of cancer, masses,or discharges. Cardiac: CAD, HTN, HLD. Pulmonary: No COPD. GI: No GI ulcer, GI bleeding, GERD. Urinary/genital: UTI. Endocrinologic: Diabetes Mellitus, hypothyroidism, obesity. Skeletomuscular: Generalized weakness. Neurological: see HP. Psychiatric: Denies drug use/abuse. Otherwise, not -wzykf review of systems. PHYSICAL EXAMINATION: General appearance is in subacute distress. HEENT: Normocephalic and nontraumatic. Eyes, nose, ears, and throat are unremarkable. Neck is supple. No lymphadenopathy. No bruits are heard over the carotid artery. No crepitus. Cardiovascular: S1, S2, regular rate and rhythm. Pulmonary: Clear to auscultation bilaterally. Abdomen: Bowel sounds are positive. Abdomen is soft, nontender, and nondistended. Extremities: No rash, lesions, or edema. No restriction of range of motion NEUROLOGICAL EXAMINATION: Alert Oriented to time, place and person. PERRL. EOMI. CN: no focal findings. Muscle tone: within normal. Muscle strength: 5- DTR: 2 UE, 1+ at knee due to obesity. Plantar reflex: Flexor response bilaterally Gait: Able to walk with assistance. Sensory exam: no abnormal findings. No cerebellar signs elicited. F-T-N test fine. Objective Objective Vital Signs Date Time Temp Pulse Resp B/P (MAP) Pulse Ox O2 Delivery O2 Flow Rate FiO2 03/26/17 11:06 Room Air 03/26/17 11:00 98.1 70 20 132/56 (81) 98 98.1 03/25/17 20:11 2.0 Intake and Output 03/27/17 07:00 Intake Total 250 ml Balance 250 ml Intake Oral 250 ml Vitals Signs Vitals VS - Last 72 Hours, by Label Date Time Temp Pulse Resp B/P (MAP) Pulse Ox O2 Delivery O2 Flow Rate FiO2 03/26/17 11:06 Room Air 03/26/17 11:00 98.1 70 20 132/56 (81) 98 Room Air 98.1 03/26/17 08:39 81 107/68 03/26/17 08:38 81 107/68 03/26/17 07:13 98 Room Air 03/26/17 07:13 Room Air 03/26/17 07:00 98.1 72 20 107/68 (81) 97 Room Air 98.1 03/26/17 06:13 18 94 Room Air 03/26/17 03:54 97.9 74 20 135/62 (86) 94 BiPAP/CPAP 97.9 03/25/17 23:35 97.8 82 20 124/58 (80) 95 BiPAP/CPAP 97.8 03/25/17 20:11 Nasal Cannula 2.0 03/25/17 19:55 97.5 72 20 125/70 (88) 94 Room Air 97.5 03/25/17 19:44 Room Air 03/25/17 16:53 85 03/25/17 15:00 97.2 82 20 103/69 (80) 93 Nasal Cannula 2.0 97.2 03/25/17 14:50 Room Air 03/25/17 11:19 98 Room Air 03/25/17 11:00 98.4 75 19 157/79 (105) 91 Nasal Cannula 2.0 98.4 03/25/17 09:18 95 Nasal Cannula 2.0 03/25/17 08:39 80 03/25/17 08:38 80 03/25/17 08:00 Nasal Cannula 2.0 03/25/17 07:00 98.8 77 20 122/69 (86) 95 Nasal Cannula 2.0 98.8 Laboratory Laboratory Laboratory Tests Test 03/25/17 16:55 03/25/17 21:09 03/26/17 10:48 Glucose (Fingerstick) 147 mg/dL (70-99) 129 mg/dL (70-99) 196 mg/dL (70-99) Medication Medications Current Medications Gadobutrol (Gadavist) 10 mmol 1X ONCE IV Last administered on 03/25/17t 12:30 ; Start 03/25/17 at 12:30; Stop 03/25/17 at 12:32; Status DC Comment Review of Relevant I have reviewed the following items tung (where applicable) has been applied. GLENN ESCOBEDO MD Mar 26, 2017 12:28
--- NOTE | 2017-03-26 14:12 | PDOC ---
PULMONARY PROGRESS NOTES Subjective PT WITH NO INCREASE SOA Vitals Vital Signs Date Time Temp Pulse Resp B/P (MAP) Pulse Ox O2 Delivery O2 Flow Rate FiO2 03/26/17 13:44 98 Room Air 03/26/17 11:00 98.1 70 20 132/56 (81) 98.1 03/25/17 20:11 2.0 ROS: No Nausea, No Chest Pain, No Abdominal Pain, No Increase Cough Lungs: Clear Cardiovascular: S1, S2 Abdomen: Soft, Non-tender Neuro Exam: Alert Extremities: No Edema Skin: Warm, Dry Labs Laboratory Tests Test 03/24/17 16:40 03/24/17 16:46 03/24/17 20:38 03/25/17 01:20 Erythrocyte Sedimentation Rate 61 (0-25) Prothrombin Time 13.0 SEC (11.7-14.0) Prothromb Time International Ratio 1.0 (0.8-1.1) C-Reactive Protein High Sensitivity 12.95 mg/L (0.00-3.00) Thyroid Stimulating Hormone (TSH) 4.791 uIU/mL (0.358-3.74) Glucose (Fingerstick) 126 mg/dL (70-99) 110 mg/dL (70-99) Urine Collection Type Unknown Urine Color Yellow Urine Clarity Clear Urine pH 7.0 Urine Specific [place] <=1.005 Urine Protein Negative mg/dL (NEG-TRACE) Urine Glucose (UA) Negative mg/dL (NEG) Urine Ketones (Stick) Negative mg/dL (NEG) Urine Blood Negative (NEG) Urine Nitrite Negative (NEG) Urine Bilirubin Negative (NEG) Urine Urobilinogen Dipstick 0.2 mg/dL (0.2 mg/dL) Urine Leukocyte Esterase Negative (NEG) Urine RBC 0 /HPF (0-2) Urine WBC Occ /HPF (0-4) Urine Squamous Epithelial Cells Few /LPF Urine Bacteria 0 /HPF (0-FEW) Urine Mucus Slight /LPF Test 03/25/17 04:20 03/25/17 07:58 03/25/17 11:42 03/25/17 16:55 White Blood Count 7.8 x10^3/uL (4.0-11.0) Red Blood Count 3.41 x10^6/uL (3.50-5.40) Hemoglobin 9.3 g/dL (12.0-15.5) Hematocrit 28.0 % (36.0-47.0) Mean Corpuscular Volume 82 fL (79-100) Mean Corpuscular Hemoglobin 27 pg (25-35) Mean Corpuscular Hemoglobin Concent 33 g/dL (31-37) Red Cell Distribution Width 16.6 % (11.5-14.5) Platelet Count 314 x10^3/uL (140-400) Neutrophils (%) (Auto) 52 % (31-73) Lymphocytes (%) (Auto) 34 % (24-48) Monocytes (%) (Auto) 9 % (0-9) Eosinophils (%) (Auto) 5 % (0-3) Basophils (%) (Auto) 1 % (0-3) Neutrophils # (Auto) 4.0 x10^3uL (1.8-7.7) Lymphocytes # (Auto) 2.6 x10^3/uL (1.0-4.8) Monocytes # (Auto) 0.7 x10^3/uL (0.0-1.1) Eosinophils # (Auto) 0.4 x10^3/uL (0.0-0.7) Basophils # (Auto) 0.1 x10^3/uL (0.0-0.2) Sodium Level 134 mmol/L (136-145) Potassium Level 3.9 mmol/L (3.5-5.1) Chloride Level 98 mmol/L (98-107) Carbon Dioxide Level 31 mmol/L (21-32) Anion Gap 5 (6-14) Blood Urea Nitrogen 25 mg/dL (7-20) Creatinine 1.1 mg/dL (0.6-1.0) Estimated GFR (Cockcroft-Gault) 49.2 Glucose Level 100 mg/dL (70-99) Calcium Level 9.2 mg/dL (8.5-10.1) Glucose (Fingerstick) 93 mg/dL (70-99) 221 mg/dL (70-99) 147 mg/dL (70-99) Test 03/25/17 21:09 03/26/17 10:48 Glucose (Fingerstick) 129 mg/dL (70-99) 196 mg/dL (70-99) Laboratory Tests Test 03/25/17 16:55 03/25/17 21:09 03/26/17 10:48 Glucose (Fingerstick) 147 mg/dL (70-99) 129 mg/dL (70-99) 196 mg/dL (70-99) Medications Active Scripts Medications Dose Route/Sig Max Daily Dose Days Date Category Zofran (Ondansetron Hcl) 4 Mg Tablet 1 Tab PO PRN Q6-8HRS 03/23/17 Reported Tylenol With Codeine #3 Tablet (Acetaminophen/Codeine Phosphate) 1 Each Tablet 1 Tab PO PRN Q4HRS PRN 03/23/17 Reported [Ivig] 1 Q4WK 03/23/17 Reported Probiotic (Lactobacillus Acidophilus) 1 Each Capsule 1 Each PO DAILY 03/23/17 Reported Multivitamins (Multivitamin) 1 Each Tablet 1 Tab PO DAILY 03/23/17 Reported Gabapentin 600 Mg Tablet 600 Mg PO BID 03/23/17 Reported Levemir (Insulin Detemir) 100 Unit/1 Ml Vial 29 Unit SQ QHS 03/23/17 Reported Flonase Allergy Relief (Fluticasone Propionate) 9.9 Ml [place].susp 2 Sprays NS BID 03/23/17 Reported Carvedilol 12.5 Mg Tablet 1 Tab PO BID 03/23/17 Reported Escitalopram Oxalate 20 Mg Tablet 1 Tab PO DAILY 03/23/17 Reported Levo-T (Levothyroxine Sodium) 112 Mcg Tablet 112 Mcg PO QHS 03/23/17 Reported Atorvastatin Calcium 20 Mg Tablet 20 Mg PO HS 03/23/17 Reported Topamax (Topiramate) 25 Mg Tablet 1 Tab PO QHS 03/23/17 Reported Clonazepam 1 Mg Tablet 0.5 Tab PO QHS 03/23/17 Reported Glimepiride 4 Mg Tablet 1 Tab PO DAILYWLUN 03/23/17 Reported Glimepiride 1 Mg Tablet 1 Tab PO DAILYWSUP 03/23/17 Reported Vitamin D3 (Cholecalciferol (Vitamin D3)) 5,000 Unit Tablet 1 Tab PO DAILY 03/23/17 Reported Potassium Chloride 10 Meq Capsule.er 10 Meq PO DAILY 03/23/17 Reported Losartan-Hctz 50-12.5 Mg Tab (Losartan/Hydrochlorothiazide) 1 Each Tablet 1 Tab PO DAILY 03/23/17 Reported Miralax (Polyethylene Glycol 3350) 17 Gm Powd.pack 1 Packet PO DAILY 03/23/17 Reported Mirtazapine 7.5 Mg Tablet 7.5 Mg PO QHS 10/16/14 Reported Omeprazole 10 Mg Capsule.dr 30 Mg PO DAILY 10/16/14 Reported Aspirin 81 Mg Tab.chew 1 Tab PO DAILY 10/16/14 Reported Impression . 1. Acute hypercapnic respiratory failure. 2. Obstructive sleep apnea/obesity hypoventilation syndrome. 3. Secondary pulmonary hypertension, pulmonary artery pressure measured at 48 mmHg. 4. Morbid obesity, body mass index of 41.8. 5. Recent left shoulder surgery. 6. Possible pneumonia POA IMPRESSION: Volume loss at the right lung base compatible with atelectasis, scar or pneumonia. Plan . D/C TODAY FOLLOW UP IN MY OFFICE ERICA DIZA MD Mar 26, 2017 14:12
== END 2017-03-26 14:55 | DRG 177 ==
LOC: 1 WEST ICU 00:59 → 2 SOUTH 18:51
PROVIDERS: ADMIT Internal Medicine Hematology & Oncology; ATTEND Internal Medicine Hematology & Oncology
PROC: 5A09357 Assistance with Respiratory Ventilation, Less than 24 Consecutive Hours, Continuous Positive Airway Pressure (ICD-10-PCS; principal; 2017-03-23)
DX: J15.6 Pneumonia due to other Gram-negative bacteria (principal); J96.21 Acute and chronic respiratory failure with hypoxia; G93.41 Metabolic encephalopathy; I27.29 Other secondary pulmonary hypertension; E44.1 Mild protein-calorie malnutrition; E66.2 Morbid (severe) obesity with alveolar hypoventilation; I24.8 Other forms of acute ischemic heart disease; J96.22 Acute and chronic respiratory failure with hypercapnia; Z68.41 Body mass index [BMI] 40.0-44.9, adult; R74.8 Abnormal levels of other serum enzymes; J32.9 Chronic sinusitis, unspecified; E11.9 Type 2 diabetes mellitus without complications; R70.0 Elevated erythrocyte sedimentation rate; G31.84 Mild cognitive impairment of uncertain or unknown etiology; D64.9 Anemia, unspecified; I10 Essential (primary) hypertension; G43.909 Migraine, unspecified, not intractable, without status migrainosus; E03.9 Hypothyroidism, unspecified; G47.33 Obstructive sleep apnea (adult) (pediatric); I25.10 Atherosclerotic heart disease of native coronary artery without angina pectoris; F41.9 Anxiety disorder, unspecified; F32.9 Major depressive disorder, single episode, unspecified; Z90.49 Acquired absence of other specified parts of digestive tract; Z79.4 Long term (current) use of insulin; Z88.1 Allergy status to other antibiotic agents; Z88.2 Allergy status to sulfonamides; Z88.8 Allergy status to other drugs, medicaments and biological substances; I25.2 Old myocardial infarction; Z95.5 Presence of coronary angioplasty implant and graft
CPT/HCPCS: 36415; 70553; 71010; 80048; 80053; 81001; 82962; 83880; 84443; 84484; 85025; 85610; 85651; 86141; 87641; 93306; 94640; 94660; 94760; A9585; J1650; J1815; J1885; J1956; J2405; J7620; 97110; 97116; 97530; 97535

== ENCOUNTER → 2017-07-20 | Outpatient (CLI) | payer MEDICARE, BC ==
[2017-07-20 13:19] LABS: IONIZED CALCIUM 1.28 mmol/L (1.13-1.32)
[2017-07-20 13:25] LABS: CREATINE KINASE 42 U/L (26-192)
[2017-07-20 13:33] LABS: VITAMIN-B12 585 pg/mL (247-911)
== END | disposition home or self-care (01) ==
LOC: LAB 12:32
DX: I10 Essential (primary) hypertension (principal); E11.9 Type 2 diabetes mellitus without complications; Z79.4 Long term (current) use of insulin; Z79.899 Other long term (current) drug therapy; W19.XXXS Unspecified fall, sequela
CPT/HCPCS: 36415; 82306; 82310; 82550; 82607

== ENCOUNTER 2018-04-05 15:09 | Inpatient (IN) | payer MEDICARE, BC ==
[~2018-04-05] VITALS: Ht 153.7 cm; Wt 95.4 kg
[~2018-04-05 15:09] MED LIST changes: +ACET-704 PO; +ASPI-482 PO; +ATOR20TA58 PO; +CARV12.52 PO; +CHOL500016 PO; +CLON1TAB4 PO; +ESCITALOPRAM OX20 MG PO; +FLUT9.9S NS; +GABA600T2 PO; +GLIM4TAB2 PO; +INSU100V13 SQ; +IVIG; +LACT1CAP6 PO; +LEVO112T50 PO; +LOSA1TAB19 PO; -LOSA25TA4 PO; +LOSA25TA5 PO; +MULT1TAB52 PO; +ONDA4TAB7 PO; +POLY17PO29 PO; +POTA10TA12 PO; -POTA20PA PO; +POTA20PA30 PO; +TOPI25TA52 PO
[2018-04-05 15:30] VITALS: BP 147/88
[2018-04-05 16:37] LABS: BASO # 0.1 x10^3/uL (0.0-0.2); BASO % 1 % (0-3); EOS # 0.1 x10^3/uL (0.0-0.7); EOS % 1 % (0-3); HEMATOCRIT 37.6 % (36.0-47.0); HEMOGLOBIN 12.7 g/dL (12.0-15.5); LYMPH # 2.5 x10^3/uL (1.0-4.8); LYMPH % 34 % (24-48); MEAN CORPUSCULAR HEMOGLOBIN 31 pg (25-35); MEAN CORPUSCULAR HGB CONC 34 g/dL (31-37); MEAN CORPUSCULAR VOLUME 90 fL (79-100); MONO # 0.5 x10^3/uL (0.0-1.1); MONO % 7 % (0-9); NEUT # 4.2 x10^3uL (1.8-7.7); NEUT % 57 % (31-73); PLATELET COUNT 279 x10^3/uL (140-400); RED BLOOD COUNT 4.17 x10^6/uL (3.50-5.40); WHITE BLOOD COUNT 7.4 x10^3/uL (4.0-11.0)
--- NOTE | 2018-04-05 16:45 | PDOC1 ---
History and Physical Date of Admission Date of Admission DATE: 04/05/18 TIME: 16:38 Identification/Chief Complaint Chief Complaint Headache DM HTN CAD Hypothyroidism. Cognitive impairment. Obesity. Source Source: Chart review, Patient History of Present Illness History of Present Illness 72 female PMHx HTN, DM with neuropathy, mild cognitive impairment, hypothyroidism, left foot drop, anxiety, migraine headaches p/w intractable migraine headache, worst of her life to her neurologists office today and is directly admitted for the same. She has increased headaches recently over the past 2 days and tried OTC and her friend's Narcotics stating did not help. Her headaches persistent and she rated her headaches 9/10, left sided, throbbing, sensitive to light and loud noises. Previously she was controlled at topiramate 50mg BID, states she had worsening confusion at 100mg BID and has subsequently stopped it and recently started at 25mg QHS. CT head urgently ordered for worse headache of her life. Past Medical History Cardiovascular: HTN CENTRAL NERVOUS SYSTEM: Periperal neuropathy, Other (Mild cognitive impairment) Psych: Anxiety, Depression Endocrine: Diabetes, Hyperthyroidism, Hypothyroidism Past Surgical History Past Surgical History: Cholecystectomy Social History Smoke: No ALCOHOL: none Drugs: None Current Medications Current Medications Current Medications Topiramate (Topamax) 25 mg HS PO ; Start 04/05/18 at 21:00 Morphine Sulfate (Morphine Sulfate) 2 mg PRN Q4HRS PRN IV PAIN; Start at 16:15 Active Scripts Active Reported Zofran (Ondansetron Hcl) 4 Mg Tablet 1 Tab PO PRN Q6-8HRS Tylenol With Codeine #3 Tablet (Acetaminophen/Codeine Phosphate) 1 Each Tablet 1 Tab PO PRN Q4HRS PRN [Ivig] 1 Q4WK Probiotic (Lactobacillus Acidophilus) 1 Each Capsule 1 Each PO DAILY Multivitamins (Multivitamin) 1 Each Tablet 1 Tab PO DAILY Gabapentin 600 Mg Tablet 600 Mg PO BID Levemir (Insulin Detemir) 100 Unit/1 Ml Vial 29 Unit SQ QHS Flonase Allergy Relief (Fluticasone Propionate) 9.9 Ml [place].susp 2 Sprays NS BID Carvedilol 12.5 Mg Tablet 1 Tab PO BID Escitalopram Oxalate 20 Mg Tablet 1 Tab PO DAILY Levo-T (Levothyroxine Sodium) 112 Mcg Tablet 112 Mcg PO QHS Atorvastatin Calcium 20 Mg Tablet 20 Mg PO HS Topamax (Topiramate) 25 Mg Tablet 1 Tab PO QHS Clonazepam 1 Mg Tablet 0.5 Tab PO QHS Glimepiride 4 Mg Tablet 1 Tab PO DAILYWLUN Glimepiride 1 Mg Tablet 1 Tab PO DAILYWSUP Vitamin D3 (Cholecalciferol (Vitamin D3)) 5,000 Unit Tablet 1 Tab PO DAILY Potassium Chloride 10 Meq Capsule.er 10 Meq PO DAILY Losartan-Hctz 50-12.5 Mg Tab (Losartan/Hydrochlorothiazide) 1 Each Tablet 1 Tab PO DAILY Miralax (Polyethylene Glycol 3350) 17 Gm Powd.pack 1 Packet PO DAILY Mirtazapine 7.5 Mg Tablet 7.5 Mg PO QHS Omeprazole 10 Mg Capsule.dr 30 Mg PO DAILY Aspirin 81 Mg Tab.chew 1 Tab PO DAILY Allergies Allergies: Coded Allergies: Sulfa (Sulfonamide Antibiotics) (Verified Allergy, Intermediate, 03/26/17) aripiprazole (Verified Allergy, Intermediate, 03/26/17) doxycycline (Verified Allergy, Intermediate, 03/26/17) pseudoephedrine (Verified Allergy, Intermediate, 03/26/17) I S O L A T I O N *CONTACT* (Verified Allergy, Unknown, 03/24/17) mrsa ROS General: No: Chills, Night Sweats, Fatigue, Malaise, Appetite, Other PSYCHOLOGICAL ROS: YES: Anxiety, Memory difficulties; No: Behavioral Disorder, Concentration difficultie, Decreased libido, Depression, Disorientation, Hallucinations, Hostility, Irritablity, Mood Swings , Obsessive thoughts, Physical abuse, Sexual abuse, Sleep disturbances, Suicidal ideation, Other Eyes: Yes Blurry vision, Yes Double vision, Yes Uses glasses; No Decreased vision, No Dry eyes, No Excessive tearing, No Eye Pain, No Itchy Eyes, No Loss of vision, No Photophobia, No Scotomata, No Uses contacts, No Other HEENT: YES: Heacaches, Visual Changes; No: Hearing change, Nasal congestion, Nasal discharge, Oral lesions, Sinus pain, Sore Throat, Epistaxis, Sneezing, Snoring, Tinnitus, Vertigo, Vocal changes, Other ALLERGY AND IMMUNOLOGY: No: Hives, Insect Bite Sensitivity, Itchy/Watery Eyes, Nasal Congestion, Post Nasal Drip, Seasonal Allergies, Other Hematological and Lymphatic: No: Bleeding Problems, Blood Clots, Blood Transfusions, Brusing, Night Sweats, Pallor, Swollen Lymph Nodes, Other ENDOCRINE: No: Breast Changes, Galactorrhea, Hair Pattern Changes, Hot Flashes , Malaise/lethargy, Mood Swings, Palpitations, Polydipsia/polyuria, Skin Changes , Temperature Intolerance, Unexpected Weight Changes, Other Breast: No New/Changing Breast Lumps, No Nipple changes, No Nipple discharge, No Other Respiratory: No: Cough, Hemoptysis, Orthopnea, Pleuritic Pain, Shortness of breath, SOB with excertion, Sputum Changes, Stridor, Tachypnea, Wheezing, Other Cardiovascular: No Chest Pain, No Palpitations, No Orthopnea, No Paroxysmal Noc. Dyspnea, No Edema, No Lt Headedness, No Other Gastrointestinal: Yes Nausea; No Vomiting, No Abdominal Pain, No Diarrhea, No Constipation, No Melena, No Hematochezia, No Other Genitourinary: No Dysuria, No Frequency, No Incontinence, No Hematuria, No Retention, No Discharge, No Urgency, No Pain, No Flank Pain, No Other, No , No , No , No , No , No , No Neurological: Yes Headaches, Yes Memory Loss, Yes Numbness/Tingling; No Behavorial Changes, No Bowel/Bladder ControlChng, No Confusion, No Dizziness, No Gait Disturbance, No Impaired Coord/balance, No Seizures, No Speech Problems, No Tremors, No Visual Changes, No Weakness, No Other Skin: No Dry Skin, No Eczema, No Hair Changes, No Lumps, No Mole Changes, No Mottling, No Nail Changes, No Pruritus, No Rash, No Skin Lesion Changes, No Other, No Acne Physical Exam General: Alert, Cooperative, mild distress, Other (Oriented to person, location not date) HEENT: Atraumatic, PERRLA, EOMI, Mucous membr. moist/pink, Other (Proptosis of left eye) Heart: S1S2, RRR, no murmurs Abdomen: Normal bowel sounds, Soft, No tenderness, No hepatosplenomegaly, No masses Extremities: No clubbing, No cyanosis, No edema, Normal pulses, No tenderness/ swelling Skin: No rashes, No breakdown, No significant lesion Neuro: Normal gait, Normal speech, Strength at 5/5 X4 ext, Normal tone, Sensation intact (Decreased monofiliament sensation in glove and stocking distribution), Cranial nerves 3-12 NL, Reflexes 2+ Labs Labs Laboratory Tests Test 04/05/18 15:46 04/05/18 16:30 Glucose (Fingerstick) 97 mg/dL (70-99) White Blood Count 7.4 x10^3/uL (4.0-11.0) Red Blood Count 4.17 x10^6/uL (3.50-5.40) Hemoglobin 12.7 g/dL (12.0-15.5) Hematocrit 37.6 % (36.0-47.0) Mean Corpuscular Volume 90 fL (79-100) Mean Corpuscular Hemoglobin 31 pg (25-35) Mean Corpuscular Hemoglobin Concent 34 g/dL (31-37) Red Cell Distribution Width 15.0 % (11.5-14.5) Platelet Count 279 x10^3/uL (140-400) Neutrophils (%) (Auto) 57 % (31-73) Lymphocytes (%) (Auto) 34 % (24-48) Monocytes (%) (Auto) 7 % (0-9) Eosinophils (%) (Auto) 1 % (0-3) Basophils (%) (Auto) 1 % (0-3) Neutrophils # (Auto) 4.2 x10^3uL (1.8-7.7) Lymphocytes # (Auto) 2.5 x10^3/uL (1.0-4.8) Monocytes # (Auto) 0.5 x10^3/uL (0.0-1.1) Eosinophils # (Auto) 0.1 x10^3/uL (0.0-0.7) Basophils # (Auto) 0.1 x10^3/uL (0.0-0.2) Laboratory Tests Test 04/05/18 15:46 04/05/18 16:30 Glucose (Fingerstick) 97 mg/dL (70-99) White Blood Count 7.4 x10^3/uL (4.0-11.0) Red Blood Count 4.17 x10^6/uL (3.50-5.40) Hemoglobin 12.7 g/dL (12.0-15.5) Hematocrit 37.6 % (36.0-47.0) Mean Corpuscular Volume 90 fL (79-100) Mean Corpuscular Hemoglobin 31 pg (25-35) Mean Corpuscular Hemoglobin Concent 34 g/dL (31-37) Red Cell Distribution Width 15.0 % (11.5-14.5) Platelet Count 279 x10^3/uL (140-400) Neutrophils (%) (Auto) 57 % (31-73) Lymphocytes (%) (Auto) 34 % (24-48) Monocytes (%) (Auto) 7 % (0-9) Eosinophils (%) (Auto) 1 % (0-3) Basophils (%) (Auto) 1 % (0-3) Neutrophils # (Auto) 4.2 x10^3uL (1.8-7.7) Lymphocytes # (Auto) 2.5 x10^3/uL (1.0-4.8) Monocytes # (Auto) 0.5 x10^3/uL (0.0-1.1) Eosinophils # (Auto) 0.1 x10^3/uL (0.0-0.7) Basophils # (Auto) 0.1 x10^3/uL (0.0-0.2) VTE Prophylaxis Ordered VTE Prophylaxis Devices: Yes VTE Pharmacological Prophylaxi: Yes Assessment/Plan Assessment/Plan A/P: Intractable headache - likely status migranosous, will consult neurology. Will get stat head imaging. Toradol, compazine, slowly uptitrate topomax again, nausea control DM - SSI in house HTN - will cont home meds Anxiety - will cont home meds CAD - stable on meds Hypothyroidism - will repeat TSH, cont levothyroxine Cognitive impairment - not on meds, will have light during day, redirection Obesity - counseled FEN - Diet - ADA PPX - heparin FULL CODE Inpatient for intractable headache not amenable to outpatient therapies FAB GRIMES MD Apr 05, 2018 16:45
[2018-04-05] MEDS ORDERED: PROCHLORPERAZINE 10 MG/2 ML VIAL. IV PRN (17:45)
[2018-04-05] MEDS ORDERED: DEXTROSE 50% 25 GM / 50ML DISP.SYRIN. IV PRN (17:45)
[2018-04-05] MEDS ORDERED: ONDANSETRON PF 4 MG/2 ML VIAL. IV PRN (17:45)
[2018-04-05] MEDS ORDERED: CARV6.252 PO (17:55)
[2018-04-05] MEDS ORDERED: GABA-587 PO (17:55)
[2018-04-05] MEDS ORDERED: LEVO88TA4 PO (17:55)
[2018-04-05] MEDS ORDERED: TRAM50TA PO (17:55)
[2018-04-05] MEDS ORDERED: ESCI10TA2 PO (17:55)
[2018-04-05] MEDS ORDERED: METO10TA81 PO (17:55)
[2018-04-05] MEDS ORDERED: GLIM4TAB2 PO (17:55)
[2018-04-05] MEDS ORDERED: OMEP40CA5 PO (17:55)
[2018-04-05] MEDS ORDERED: INSU100V13 SQ (17:55)
[2018-04-05] MEDS ORDERED: MIRT45TA58 PO (17:55)
--- NOTE | 2018-04-05 17:59 | RAD ---
CT scan of the head without contrast 04/05/2018 Clinical History: Headaches . Technique: Unenhanced, contiguous, 5 mm axial sections were obtained through the head. One or more of the following individualized dose reduction techniques were utilized for this study: 1. Automated exposure control. 2. Adjustment of the mA and/or kV according to patient size. 3. Use of iterative reconstruction technique. Findings: Comparison is made to the patient's MRI of the brain dated 03/25/2017. There is generalized parenchymal atrophy. Areas of decreased attenuation are seen within the periventricular and subcortical white matter of both cerebral hemispheres consistent with areas of small vessel ischemic disease. No acute parenchymal abnormality is seen. No extra-axial fluid collection is noted. No skull fracture is seen. Postresection of the medial [place] of both maxillary sinuses and the majority of the ethmoid air cells is noted. Impression: No acute intracranial abnormality is seen. Electronically signed by: Manuel Amor MD (04/05/2018 5:55 PM) [id number]
[2018-04-05] MEDS ORDERED: GLIMEPIRIDE 2 MG TABLET. PO SCH (18:00)
[2018-04-05] MEDS ORDERED: ONDANSETRON ODT 4 MG TAB.RAPDIS. PO PRN (18:00)
[2018-04-05] MEDS: CARVEDILOL 12.5 MG TABLET. PO SCH (18:00)
--- NOTE | 2018-04-05 18:21 | PDOC2 ---
NEUROLOGY CONSULT Date of Admission Date of Admission DATE: 04/05/18 TIME: 18:16 Reason for Consult Reason for Consult: Worsening of headache. DM HTN CAD Hypothyroidism. Cognitive impairment. Obesity. RECOMMENDATIONS/PLAN: Pain control. Morphine 2 mg IV q4h prn. Topamax 25 mg HS, then bid. Neurontin 400 mg HS.. Lab: see orders. HCT: Negative. HISTORY OF THE PRESENT ILLNESS: 72-y-old female patient with Hx of chronic headaches for many years but was controlled by Topamax HS dosing for 2 to 3 years. She has increased headaches recently and tried OTC and her friend's Narcotics stating did not help. Her headaches persistent and she rated her headaches 9/10. She was therefore admitted for headache control. Past Medical History Cardiovascular: HTN Psych: Anxiety, Depression ENT: Sincusitis (chronic ) Endocrine: Diabetes, Hyperthyroidism, Hypothyroidism Past Surgical History Cholecystectomy Social History Smoke: No ALCOHOL: none Drugs: None ALLERGY: reviewed. MEDICATIONS: Refer to [facility] FAMILY HISTORY: Non contributory. SOCIAL HISTORY: Lives at home. Denies smoking, drinking, and illicit drug use. REVIEW OF SYSTEMS: Constitutional: No malnutrition, weight loss, cachexia. Head: No traumatic brain or head injury. Skin: No edema, or rash. Ear: No infection. Eyes: No vision loss or color blindness. Nose: No bleeding or purulent discharges. Hearing: No hearing decrease. Neck: No injury. Breast: No history of cancer, masses,or discharges. Cardiac: CAD, HTN, HLD. Pulmonary: No COPD. GI: No GI ulcer, GI bleeding, GERD. Urinary/genital: UTI. Endocrinologic: Diabetes Mellitus, hypothyroidism, obesity. Skeletomuscular: Generalized weakness. Neurological: see HP. Psychiatric: Denies drug use/abuse. Otherwise, not [id number] review of systems. PHYSICAL EXAMINATION: General appearance is in subacute distress. HEENT: Normocephalic and nontraumatic. Eyes, nose, ears, and throat are unremarkable. Neck is supple. No lymphadenopathy. No bruits are heard over the carotid artery. No crepitus. Cardiovascular: S1, S2, regular rate and rhythm. Pulmonary: Clear to auscultation bilaterally. Abdomen: Bowel sounds are positive. Abdomen is soft, nontender, and nondistended. Extremities: No rash, lesions, or edema. No restriction of range of motion NEUROLOGICAL EXAMINATION: Alert Oriented to time, place and person. PERRL. EOMI. CN: no focal findings. Muscle tone: within normal. Muscle strength: 5- DTR: 2 UE, 1+ at knee due to obesity. Plantar reflex: Flexor response bilaterally Gait: not examined in bed. Sensory exam: no abnormal findings. No cerebellar signs elicited. F-T-N test fine. Current Medications Current Medications Current Medications Topiramate (Topamax) 25 mg HS PO ; Start 04/05/18 at 21:00 Morphine Sulfate (Morphine Sulfate) 2 mg PRN Q4HRS PRN IV PAIN; Start at 16:15 Ondansetron HCl (Zofran) 4 mg PRN Q6HRS PRN IV NAUSEA/VOMITING, 1st CHOICE; Start 04/05/18 at 17:45 Prochlorperazine Edisylate (Compazine) 10 mg PRN Q6HRS PRN IV NAUSEA/VOMITING, 2nd CHOICE; Start 04/05/18 at 17:45 Senna/Docusate Sodium (Senna Plus) 1 tab BID PO ; Start 04/05/18 at 21:00 Heparin Sodium (Porcine) (Heparin Sodium) 5,000 unit Q12HR SQ ; Start 04/05/18 at 21:00 Insulin Human Lispro (HumaLOG) 0-7 UNITS TIDWMEALS SQ ; Start 04/06/18 at 08:00 Dextrose (Dextrose 50%-Water Syringe) 12.5 gm PRN Q15MIN PRN IV SEE COMMENTS; Start 04/05/18 at 17:45 Acetaminophen/ Codeine Phosphate (Tylenol #3) 1 tab PRN Q4HRS PRN PO PAIN; Start 04/05/18 at 17:45 Aspirin (Children'S Aspirin) 81 mg DAILY PO ; Start 04/06/18 at 09:00 Atorvastatin Calcium (Lipitor) 20 mg HS PO ; Start 04/05/18 at 21:00 Carvedilol (Coreg) 12.5 mg BIDWMEALS PO ; Start 04/05/18 at 18:00 Clonazepam (KlonoPIN) 0.5 mg QHS PO ; Start 04/05/18 at 21:00 Levothyroxine Sodium (Synthroid) 112 mcg QHS PO ; Start 04/05/18 at 21:00 Mirtazapine (Remeron) 7.5 mg QHS PO ; Start 04/05/18 at 21:00 Potassium Chloride (Klor-Con) 10 meq DAILY PO ; Start 04/06/18 at 09:00 Vitamin D (Vitamin D3) 5,000 unit DAILY PO ; Start 04/06/18 at 09:00 Citalopram Hydrobromide (CeleXA) 40 mg DAILY PO ; Start 04/06/18 at 09:00 Fluticasone Propionate (Flonase) 2 spray BID NS ; Start 04/05/18 at 21:00 Gabapentin (Neurontin) 600 mg BID PO ; Start 04/05/18 at 21:00 Glimepiride (Amaryl) 1 mg DAILYWSUP PO ; Start 04/05/18 at 18:00 Glimepiride (Amaryl) 4 mg DAILYWLUN PO ; Start 04/06/18 at 12:00 Insulin Glargine (Lantus) 29 units QHS SQ ; Start 04/05/18 at 21:00 Lactobacillus Rhamnosus (Culturelle) 1 cap DAILY PO ; Start 04/06/18 at 09:00 Losartan Potassium (Cozaar) 50 mg DAILY PO ; Start 04/06/18 at 09:00 Pantoprazole Sodium (Protonix) 40 mg DAILYAC PO ; Start 04/06/18 at 07:30 Ondansetron HCl (Zofran Odt) 4 mg PRN Q6HRS PRN PO NAUSEA/VOMITING; Start at 18:00 Polyethylene Glycol (miraLAX PACKET) 17 gm DAILY PO ; Start 04/06/18 at 09:00 Non-Formulary Medication (Topiramate (Topamax)) 1 tab QHS PO ; Start 04/05/18 at 21:00; Status UNV Hydrochlorothiazide (Microzide) 12.5 mg DAILY PO ; Start 04/06/18 at 09:00 Active Scripts Active Reported Tramadol Hcl 50 Mg Tablet 50 Mg PO Q6HRS PRN Reglan (Metoclopramide Hcl) 10 Mg Tablet 5 Mg PO PRN BFRMEAL PRN Levemir (Insulin Detemir) 100 Unit/1 Ml Vial 4 Unit SQ HS Omeprazole 40 Mg Capsule.dr 1 Cap PO DAILY Levothyroxine Sodium 88 Mcg Tablet 1 Tab PO DAILY07 Mirtazapine 45 Mg Tablet 1 Tab PO QHS Glimepiride 4 Mg Tablet 1 Tab PO DAILYBFRSUP Escitalopram Oxalate 10 Mg Tablet 30 Mg PO DAILY Gabapentin 400 Mg Capsule 400 Mg PO HS Carvedilol 6.25 Mg Tablet 1 Tab PO BID Probiotic (Lactobacillus Acidophilus) 1 Each Capsule 1 Each PO DAILY Multivitamins (Multivitamin) 1 Each Tablet 1 Tab PO DAILY Flonase Allergy Relief (Fluticasone Propionate) 9.9 Ml [place].susp 2 Sprays NS BID Atorvastatin Calcium 20 Mg Tablet 20 Mg PO HS Topamax (Topiramate) 25 Mg Tablet 1 Tab PO QHS Clonazepam 1 Mg Tablet 0.5 Tab PO QHS Vitamin D3 (Cholecalciferol (Vitamin D3)) 5,000 Unit Tablet 1 Tab PO DAILY Potassium Chloride 10 Meq Capsule.er 10 Meq PO DAILY Losartan-Hctz 50-12.5 Mg Tab (Losartan/Hydrochlorothiazide) 1 Each Tablet 1 Tab PO DAILY Miralax (Polyethylene Glycol 3350) 17 Gm Powd.pack 1 Packet PO DAILY Aspirin 81 Mg Tab.chew 1 Tab PO DAILY Allergies Allergies: Allergies Coded Allergies Type Severity Reaction Last Updated Verified Sulfa (Sulfonamide Antibiotics) Allergy Intermediate 03/26/17 Yes aripiprazole Allergy Intermediate 03/26/17 Yes doxycycline Allergy Intermediate 03/26/17 Yes pseudoephedrine Allergy Intermediate 03/26/17 Yes I S O L A T I O N *CONTACT* Allergy Unknown 03/24/17 Yes ROS Review of System The patient denies any associated fevers, chills, headache, ear pain, rhinorrhea , sore throat, stiff neck, productive cough, chest pain, shortness of breath, back or flank pain, abdominal pain, nausea, vomiting, diarrhea, constipation, dysuria, rash, numbness, weakness, tingling, incontinence, difficulty ambulating, or diaphoresis. Physical Exam Physical Exam General: Well developed, well nourished, no acute distress, well appearing HEENT: Pupils equally round and reactive to light, EOMI, no discharge, normal conjunctiva Neck: Supple, no nuchal rigidity, no JVD, trachea midline, no tenderness Cardiac: RRR, no murmurs, no gallops, no rubs Chest/Lungs: CTAB, no wheeze, no rhonchi, no crackles Abdomen: soft, non-distended, no guarding, no peritoneal signs, non-tender Back: No tenderness Extremities: no edema, pulses intact, non-tender,capillary refill <3 sec bilateral upper and lower extremities, Neuro: Alert and oriented x 4, no focal deficits, normal speech Vitals Vitals: Vital Signs Date Time Temp Pulse Resp B/P (MAP) Pulse Ox O2 Delivery O2 Flow Rate FiO2 04/05/18 15:30 96.5 69 20 147/88 (107) 95 Room Air 96.5 Labs Labs Laboratory Tests Test 04/05/18 15:46 04/05/18 16:30 Glucose (Fingerstick) 97 mg/dL (70-99) White Blood Count 7.4 x10^3/uL (4.0-11.0) Red Blood Count 4.17 x10^6/uL (3.50-5.40) Hemoglobin 12.7 g/dL (12.0-15.5) Hematocrit 37.6 % (36.0-47.0) Mean Corpuscular Volume 90 fL (79-100) Mean Corpuscular Hemoglobin 31 pg (25-35) Mean Corpuscular Hemoglobin Concent 34 g/dL (31-37) Red Cell Distribution Width 15.0 % (11.5-14.5) Platelet Count 279 x10^3/uL (140-400) Neutrophils (%) (Auto) 57 % (31-73) Lymphocytes (%) (Auto) 34 % (24-48) Monocytes (%) (Auto) 7 % (0-9) Eosinophils (%) (Auto) 1 % (0-3) Basophils (%) (Auto) 1 % (0-3) Neutrophils # (Auto) 4.2 x10^3uL (1.8-7.7) Lymphocytes # (Auto) 2.5 x10^3/uL (1.0-4.8) Monocytes # (Auto) 0.5 x10^3/uL (0.0-1.1) Eosinophils # (Auto) 0.1 x10^3/uL (0.0-0.7) Basophils # (Auto) 0.1 x10^3/uL (0.0-0.2) Erythrocyte Sedimentation Rate 9 (0-25) Laboratory Tests Test 04/05/18 15:46 04/05/18 16:30 Glucose (Fingerstick) 97 mg/dL (70-99) White Blood Count 7.4 x10^3/uL (4.0-11.0) Red Blood Count 4.17 x10^6/uL (3.50-5.40) Hemoglobin 12.7 g/dL (12.0-15.5) Hematocrit 37.6 % (36.0-47.0) Mean Corpuscular Volume 90 fL (79-100) Mean Corpuscular Hemoglobin 31 pg (25-35) Mean Corpuscular Hemoglobin Concent 34 g/dL (31-37) Red Cell Distribution Width 15.0 % (11.5-14.5) Platelet Count 279 x10^3/uL (140-400) Neutrophils (%) (Auto) 57 % (31-73) Lymphocytes (%) (Auto) 34 % (24-48) Monocytes (%) (Auto) 7 % (0-9) Eosinophils (%) (Auto) 1 % (0-3) Basophils (%) (Auto) 1 % (0-3) Neutrophils # (Auto) 4.2 x10^3uL (1.8-7.7) Lymphocytes # (Auto) 2.5 x10^3/uL (1.0-4.8) Monocytes # (Auto) 0.5 x10^3/uL (0.0-1.1) Eosinophils # (Auto) 0.1 x10^3/uL (0.0-0.7) Basophils # (Auto) 0.1 x10^3/uL (0.0-0.2) Erythrocyte Sedimentation Rate 9 (0-25) GLENN ESCOBEDO MD Apr 05, 2018 18:21
[2018-04-05] MEDS: ACETAMINOPHEN/CODEINE 300/30MG TABLET. PO PRN (18:42)
[2018-04-05 19:00] VITALS: BP 133/78
[2018-04-05] MEDS: MORPHINE SULFATE 2 MG/ML VIAL. IV PRN (20:29)
[2018-04-05] MEDS ORDERED: LEVOTHYROXINE 112 MCG TABLET PO SCH (21:00)
[2018-04-05] MEDS ORDERED: INSULIN GLARGINE 300 UNITS/3 ML INSULN.PEN. SQ SCH (21:00)
[2018-04-05] MEDS: HEPARIN for SUB-Q USE 5,000 UNIT/ML VIAL. SQ SCH (21:00)
[2018-04-05] MEDS ORDERED: TOPIRAMATE 25 MG TABLET. PO SCH (21:00)
[2018-04-05] MEDS ORDERED: TOPIRAMATE PO SCH (21:00)
[2018-04-05] MEDS ORDERED: MIRTAZAPINE 7.5 MG TABLET. PO SCH (21:00)
[2018-04-05] MEDS ORDERED: GABAPENTIN 400 MG CAPSULE. PO SCH (21:00)
[2018-04-05] MEDS: SENNOSIDES/DOCUSATE 8.6/50MG TABLET. PO SCH (21:51)
[2018-04-05] MEDS: GABAPENTIN 300 MG CAPSULE. PO SCH (21:51)
[2018-04-05] MEDS: ATORVASTATIN CALCIUM 20 MG TABLET PO SCH (21:51)
[2018-04-05] MEDS: clonazePAM 0.5 MG TABLET PO SCH (21:51)
[2018-04-05] MEDS: FLUTICASONE 50MCG/NASAL SPRAY 16GM BOTTLE. NS SCH (21:52)
[2018-04-05 22:32] VITALS: BP 144/61
[2018-04-06 03:02] VITALS: BP 126/65
[2018-04-06 07:00] VITALS: BP 136/60
[2018-04-06] MEDS: PANTOPRAZOLE 40 MG TABLET.DR. PO SCH (07:32)
[2018-04-06] MEDS: MORPHINE SULFATE 2 MG/ML VIAL. IV PRN ×2 (07:33→11:33)
[2018-04-06] MEDS: INSULIN LISPRO 300 UNITS/3 ML INSULN.PEN. SQ SCH ×3 (08:00→16:47)
[2018-04-06] MEDS ORDERED: METOCLOPRAMIDE 10 MG TABLET. PO PRN (08:45)
[2018-04-06] MEDS: HEPARIN for SUB-Q USE 5,000 UNIT/ML VIAL. SQ SCH ×2 (09:00→20:12)
[2018-04-06] MEDS: CARVEDILOL 6.25 MG TABLET. PO SCH ×2 (09:00→17:08)
[2018-04-06] MEDS ORDERED: POLYETHYLENE GLYCOL 3350 17 GM PACKET. PO SCH (09:00)
[2018-04-06] MEDS: GABAPENTIN 300 MG CAPSULE. PO SCH (09:00)
[2018-04-06] MEDS: SENNOSIDES/DOCUSATE 8.6/50MG TABLET. PO SCH ×2 (09:00→20:12)
[2018-04-06] MEDS ORDERED: NON FORMULARY ITEM (Omeprazole 1 CAP) PO SCH (09:00)
[2018-04-06] MEDS ORDERED: ESCITALOPRAM OXALATE 30 MG PO SCH (09:00)
[2018-04-06] MEDS: LOSARTAN POTASSIUM 50 MG TABLET. PO SCH (09:18)
[2018-04-06] MEDS: hydroCHLOROthiazide 12.5 MG CAPSULE PO SCH (09:18)
[2018-04-06] MEDS: LACTOBACILLUS RHAMNOSUS GG 1 CAPSULE. PO SCH (09:19)
[2018-04-06] MEDS: POTASSIUM CHLORIDE 10 MEQ TABLET.ER. PO SCH (09:19)
[2018-04-06] MEDS: ASPIRIN CHEWABLE 81 MG TABLET. PO SCH (09:19)
[2018-04-06] MEDS: CHOLECALCIFEROL (VITAMIN D3) 5,000 UNIT CAPSULE PO SCH (09:19)
[2018-04-06] MEDS: CARVEDILOL 12.5 MG TABLET. PO SCH (09:19)
[2018-04-06] MEDS: CITALOPRAM 20 MG TABLET. PO SCH (09:21)
[2018-04-06] MEDS: FLUTICASONE 50MCG/NASAL SPRAY 16GM BOTTLE. NS SCH ×2 (09:21→20:11)
[2018-04-06 11:00] VITALS: BP 141/62
--- NOTE | 2018-04-06 11:19 | PDOC ---
PROGRESS NOTES Chief Complaint Chief Complaint MIgraine headaches, acute on chronic-getting worse lately DM - SSI in house HTN - will cont home meds Anxiety - will cont home meds CAD - stable on meds Obesity - counseled History of Present Illness History of Present Illness Unfortunately still continues to have headache Nauseated but no vomiting Has photophobia and phonophobia She seems very frustrated about it Neurology has recommended daily at bedtime Topamax but not increasing it to twice a day? Plan: We'll discuss with neurology, increase Topamax to twice a day dose? Vitals Vitals Vital Signs Date Time Temp Pulse Resp B/P (MAP) Pulse Ox O2 Delivery O2 Flow Rate FiO2 04/06/18 09:19 64 136/60 04/06/18 08:16 Nasal Cannula 2.0 04/06/18 07:00 97.8 20 98 97.8 Physical Exam General: Alert, Cooperative, mild distress, Other (Oriented to person, location not date) Lungs: Clear Abdomen: Normal bowel sounds, Soft, No tenderness, No hepatosplenomegaly, No masses Extremities: No clubbing, No cyanosis, No edema, Normal pulses, No tenderness/ swelling Skin: No rashes, No breakdown, No significant lesion Labs LABS Laboratory Tests Test 04/05/18 15:46 04/05/18 16:30 04/05/18 20:29 04/06/18 07:06 Glucose (Fingerstick) 97 mg/dL (70-99) 144 mg/dL (70-99) 92 mg/dL (70-99) White Blood Count 7.4 x10^3/uL (4.0-11.0) Red Blood Count 4.17 x10^6/uL (3.50-5.40) Hemoglobin 12.7 g/dL (12.0-15.5) Hematocrit 37.6 % (36.0-47.0) Mean Corpuscular Volume 90 fL (79-100) Mean Corpuscular Hemoglobin 31 pg (25-35) Mean Corpuscular Hemoglobin Concent 34 g/dL (31-37) Red Cell Distribution Width 15.0 % (11.5-14.5) Platelet Count 279 x10^3/uL (140-400) Neutrophils (%) (Auto) 57 % (31-73) Lymphocytes (%) (Auto) 34 % (24-48) Monocytes (%) (Auto) 7 % (0-9) Eosinophils (%) (Auto) 1 % (0-3) Basophils (%) (Auto) 1 % (0-3) Neutrophils # (Auto) 4.2 x10^3uL (1.8-7.7) Lymphocytes # (Auto) 2.5 x10^3/uL (1.0-4.8) Monocytes # (Auto) 0.5 x10^3/uL (0.0-1.1) Eosinophils # (Auto) 0.1 x10^3/uL (0.0-0.7) Basophils # (Auto) 0.1 x10^3/uL (0.0-0.2) Erythrocyte Sedimentation Rate 9 (0-25) 25-Hydroxy Vitamin D Total 52.9 ng/mL (30-100) Thyroid Stimulating Hormone (TSH) 0.849 uIU/mL (0.358-3.74) Review of Systems Review of Systems Headaches, nausea, otherwise rest of ROS 14 point negative Comment Review of Relevant I have reviewed the following items tung (where applicable) has been applied. Labs Laboratory Tests Test 04/05/18 15:46 04/05/18 16:30 04/05/18 20:29 04/06/18 07:06 Glucose (Fingerstick) 97 mg/dL (70-99) 144 mg/dL (70-99) 92 mg/dL (70-99) White Blood Count 7.4 x10^3/uL (4.0-11.0) Red Blood Count 4.17 x10^6/uL (3.50-5.40) Hemoglobin 12.7 g/dL (12.0-15.5) Hematocrit 37.6 % (36.0-47.0) Mean Corpuscular Volume 90 fL (79-100) Mean Corpuscular Hemoglobin 31 pg (25-35) Mean Corpuscular Hemoglobin Concent 34 g/dL (31-37) Red Cell Distribution Width 15.0 % (11.5-14.5) Platelet Count 279 x10^3/uL (140-400) Neutrophils (%) (Auto) 57 % (31-73) Lymphocytes (%) (Auto) 34 % (24-48) Monocytes (%) (Auto) 7 % (0-9) Eosinophils (%) (Auto) 1 % (0-3) Basophils (%) (Auto) 1 % (0-3) Neutrophils # (Auto) 4.2 x10^3uL (1.8-7.7) Lymphocytes # (Auto) 2.5 x10^3/uL (1.0-4.8) Monocytes # (Auto) 0.5 x10^3/uL (0.0-1.1) Eosinophils # (Auto) 0.1 x10^3/uL (0.0-0.7) Basophils # (Auto) 0.1 x10^3/uL (0.0-0.2) Erythrocyte Sedimentation Rate 9 (0-25) 25-Hydroxy Vitamin D Total 52.9 ng/mL (30-100) Thyroid Stimulating Hormone (TSH) 0.849 uIU/mL (0.358-3.74) Laboratory Tests Test 04/05/18 15:46 04/05/18 16:30 04/05/18 20:29 04/06/18 07:06 Glucose (Fingerstick) 97 mg/dL (70-99) 144 mg/dL (70-99) 92 mg/dL (70-99) White Blood Count 7.4 x10^3/uL (4.0-11.0) Red Blood Count 4.17 x10^6/uL (3.50-5.40) Hemoglobin 12.7 g/dL (12.0-15.5) Hematocrit 37.6 % (36.0-47.0) Mean Corpuscular Volume 90 fL (79-100) Mean Corpuscular Hemoglobin 31 pg (25-35) Mean Corpuscular Hemoglobin Concent 34 g/dL (31-37) Red Cell Distribution Width 15.0 % (11.5-14.5) Platelet Count 279 x10^3/uL (140-400) Neutrophils (%) (Auto) 57 % (31-73) Lymphocytes (%) (Auto) 34 % (24-48) Monocytes (%) (Auto) 7 % (0-9) Eosinophils (%) (Auto) 1 % (0-3) Basophils (%) (Auto) 1 % (0-3) Neutrophils # (Auto) 4.2 x10^3uL (1.8-7.7) Lymphocytes # (Auto) 2.5 x10^3/uL (1.0-4.8) Monocytes # (Auto) 0.5 x10^3/uL (0.0-1.1) Eosinophils # (Auto) 0.1 x10^3/uL (0.0-0.7) Basophils # (Auto) 0.1 x10^3/uL (0.0-0.2) Erythrocyte Sedimentation Rate 9 (0-25) 25-Hydroxy Vitamin D Total 52.9 ng/mL (30-100) Thyroid Stimulating Hormone (TSH) 0.849 uIU/mL (0.358-3.74) Medications Current Medications Topiramate (Topamax) 25 mg HS PO Last administered on 04/05/18at 21:52; Start 04/05/18 at 21:00 Morphine Sulfate (Morphine Sulfate) 2 mg PRN Q4HRS PRN IV PAIN Last administered on 04/06/18at 07:33; Start 04/05/18 at 16:15 Ondansetron HCl (Zofran) 4 mg PRN Q6HRS PRN IV NAUSEA/VOMITING, 1st CHOICE; Start 04/05/18 at 17:45 Prochlorperazine Edisylate (Compazine) 10 mg PRN Q6HRS PRN IV NAUSEA/VOMITING, 2nd CHOICE; Start 04/05/18 at 17:45 Senna/Docusate Sodium (Senna Plus) 1 tab BID PO Last administered on at 21:51; Start 04/05/18 at 21:00 Heparin Sodium (Porcine) (Heparin Sodium) 5,000 unit Q12HR SQ ; Start 04/05/18 at 21:00 Insulin Human Lispro (HumaLOG) 0-7 UNITS TIDWMEALS SQ ; Start 04/06/18 at 08:00 Dextrose (Dextrose 50%-Water Syringe) 12.5 gm PRN Q15MIN PRN IV SEE COMMENTS; Start 04/05/18 at 17:45 Acetaminophen/ Codeine Phosphate (Tylenol #3) 1 tab PRN Q4HRS PRN PO PAIN Last administered on 04/05/18at 18:42; Start 04/05/18 at 17:45 Aspirin (Children'S Aspirin) 81 mg DAILY PO Last administered on 04/06/18at 09: 19; Start 04/06/18 at 09:00 Atorvastatin Calcium (Lipitor) 20 mg HS PO Last administered on 04/05/18at 21: 51; Start 04/05/18 at 21:00 Carvedilol (Coreg) 12.5 mg BIDWMEALS PO Last administered on 04/06/18at 09:19; Start 04/05/18 at 18:00; Stop 04/06/18 at 10:23; Status DC Clonazepam (KlonoPIN) 0.5 mg QHS PO Last administered on 04/05/18at 21:51; Start 04/05/18 at 21:00 Levothyroxine Sodium (Synthroid) 112 mcg QHS PO Last administered on at 21:52; Start 04/05/18 at 21:00; Stop 04/06/18 at 10:26; Status DC Mirtazapine (Remeron) 7.5 mg QHS PO Last administered on 04/05/18at 21:51; Start 04/05/18 at 21:00; Stop 04/06/18 at 10:50; Status DC Potassium Chloride (Klor-Con) 10 meq DAILY PO Last administered on 04/06/18at 09:19; Start 04/06/18 at 09:00 Vitamin D (Vitamin D3) 5,000 unit DAILY PO Last administered on 04/06/18at 09: 19; Start 04/06/18 at 09:00 Citalopram Hydrobromide (CeleXA) 40 mg DAILY PO Last administered on at 09:21; Start 04/06/18 at 09:00 Fluticasone Propionate (Flonase) 2 spray BID NS Last administered on at 09:21; Start 04/05/18 at 21:00 Gabapentin (Neurontin) 600 mg BID PO Last administered on 04/05/18at 21:51; Start 04/05/18 at 21:00; Stop 04/06/18 at 10:32; Status DC Glimepiride (Amaryl) 1 mg DAILYWSUP PO ; Start 04/05/18 at 18:00; Stop at 10:37; Status DC Glimepiride (Amaryl) 4 mg DAILYBFRSUP PO ; Start 04/06/18 at 17:00 Insulin Glargine (Lantus) 29 units QHS SQ Last administered on 04/05/18at 22:03 ; Start 04/05/18 at 21:00; Stop 04/06/18 at 10:50; Status DC Lactobacillus Rhamnosus (Culturelle) 1 cap DAILY PO Last administered on at 09:19; Start 04/06/18 at 09:00 Losartan Potassium (Cozaar) 50 mg DAILY PO Last administered on 04/06/18at 09: 18; Start 04/06/18 at 09:00 Pantoprazole Sodium (Protonix) 40 mg DAILYAC PO Last administered on at 07:32; Start 04/06/18 at 07:30 Ondansetron HCl (Zofran Odt) 4 mg PRN Q6HRS PRN PO NAUSEA/VOMITING; Start at 18:00 Polyethylene Glycol (miraLAX PACKET) 17 gm DAILY PO ; Start 04/06/18 at 09:00 Non-Formulary Medication (Topiramate (Topamax)) 1 tab QHS PO ; Start 04/05/18 at 21:00; Status UNV Hydrochlorothiazide (Microzide) 12.5 mg DAILY PO Last administered on at 09:18; Start 04/06/18 at 09:00 Gabapentin (Neurontin) 400 mg HS PO Last administered on 04/05/18at 21:52; Start 04/05/18 at 21:00; Stop 04/06/18 at 10:30; Status DC Carvedilol (Coreg) 6.25 mg BIDWMEALS PO ; Start 04/06/18 at 09:00 Levothyroxine Sodium (Synthroid) 88 mcg DAILY07 PO ; Start 04/07/18 at 07:00 Metoclopramide HCl (Reglan) 5 mg PRN BFRMEAL PRN PO GI SYMPTOMS; Start at 08:45 Tramadol HCl (Ultram) 50 mg PRN Q6HRS PRN PO MILD TO MODERATE PAIN; Start at 10:30 Non-Formulary Medication (Escitalopram Oxalate ) 30 mg DAILY PO ; Start at 09:00; Status UNV Gabapentin (Neurontin) 400 mg QHS PO ; Start 04/06/18 at 21:00 Non-Formulary Medication (Glimepiride ) 1 tab DAILYBFRSUP PO ; Start 04/06/18 at 17:00; Status UNV Non-Formulary Medication (Insulin Detemir (Levemir)) 4 unit HS SQ ; Start 04/06 at 21:00; Stop 04/06/18 at 21:00; Status DC Mirtazapine (Remeron) 45 mg QHS PO ; Start 04/06/18 at 21:00 Multivitamins (Thera M Plus) 1 tab DAILY PO ; Start 04/06/18 at 11:00 Non-Formulary Medication (Omeprazole ) 1 cap DAILY PO ; Start 04/06/18 at 09:00 ; Status UNV Gabapentin (Neurontin) 600 mg BID@0900,1500 PO ; Start 04/06/18 at 15:00; Stop 04/06/18 at 15:00; Status DC Insulin Glargine (Lantus) 4 units QHS SQ ; Start 04/06/18 at 21:00 Active Scripts Active Reported Tramadol Hcl 50 Mg Tablet 50 Mg PO Q6HRS PRN Reglan (Metoclopramide Hcl) 10 Mg Tablet 5 Mg PO PRN BFRMEAL PRN Levemir (Insulin Detemir) 100 Unit/1 Ml Vial 4 Unit SQ HS Omeprazole 40 Mg Capsule.dr 1 Cap PO DAILY Levothyroxine Sodium 88 Mcg Tablet 1 Tab PO DAILY07 Mirtazapine 45 Mg Tablet 1 Tab PO QHS Glimepiride 4 Mg Tablet 1 Tab PO DAILYBFRSUP Escitalopram Oxalate 10 Mg Tablet 30 Mg PO DAILY Gabapentin 400 Mg Capsule 400 Mg PO HS Carvedilol 6.25 Mg Tablet 1 Tab PO BID Probiotic (Lactobacillus Acidophilus) 1 Each Capsule 1 Each PO DAILY Multivitamins (Multivitamin) 1 Each Tablet 1 Tab PO DAILY Flonase Allergy Relief (Fluticasone Propionate) 9.9 Ml [place].susp 2 Sprays NS BID Atorvastatin Calcium 20 Mg Tablet 20 Mg PO HS Topamax (Topiramate) 25 Mg Tablet 1 Tab PO QHS Clonazepam 1 Mg Tablet 0.5 Tab PO QHS Vitamin D3 (Cholecalciferol (Vitamin D3)) 5,000 Unit Tablet 1 Tab PO DAILY Potassium Chloride 10 Meq Capsule.er 10 Meq PO DAILY Losartan-Hctz 50-12.5 Mg Tab (Losartan/Hydrochlorothiazide) 1 Each Tablet 1 Tab PO DAILY Miralax (Polyethylene Glycol 3350) 17 Gm Powd.pack 1 Packet PO DAILY Aspirin 81 Mg Tab.chew 1 Tab PO DAILY Vitals/I & O Vital Sign - Last 24 Hours 04/05/18 04/05/18 04/05/18 04/05/18 15:30 17:30 18:42 19:00 Temp 96.5 97.9 96.5 97.9 Pulse 69 66 Resp 20 18 B/P (MAP) 147/88 (107) 133/78 (96) Pulse Ox 95 98 O2 Delivery Room Air Room Air Room Air Room Air 04/05/18 04/05/18 04/05/18 04/05/18 19:42 20:00 20:29 20:59 Pulse Ox 98 98 O2 Delivery Room Air Room Air Room Air 04/05/18 04/06/18 04/06/18 04/06/18 22:32 03:02 07:00 07:33 Temp 98.0 98.6 97.8 98.0 98.6 97.8 Pulse 67 59 64 Resp 18 18 20 B/P (MAP) 144/61 (88) 126/65 (85) 136/60 (85) Pulse Ox 94 93 98 O2 Delivery Nasal Cannula Nasal Cannula Nasal Cannula Nasal Cannula O2 Flow Rate 2.0 2.0 2.0 2.0 04/06/18 04/06/18 04/06/18 04/06/18 07:50 08:16 09:18 09:19 Pulse 64 64 B/P (MAP) 136/60 136/60 O2 Delivery Nasal Cannula Nasal Cannula O2 Flow Rate 2.0 2.0 Intake and Output 04/05/18 04/05/18 04/06/18 15:00 23:00 07:00 Intake Total 800 ml 200 ml Balance 800 ml 200 ml RACH RAND MD Apr 06, 2018 11:19
[2018-04-06] MEDS: MULTIVITAMIN with MINERAL TABLET. PO SCH (11:33)
[2018-04-06] MEDS: GLIMEPIRIDE 2 MG TABLET. PO SCH (12:20)
[2018-04-06 15:00] VITALS: BP 138/60
[2018-04-06] MEDS ORDERED: GABAPENTIN 300 MG CAPSULE. PO SCH (15:00)
--- NOTE | 2018-04-06 16:29 | PDOC ---
PROGRESS NOTES Assessment Assessment Worsening of chronic headache. IIP? DM HTN CAD Hypothyroidism. Cognitive impairment. Obesity. RECOMMENDATIONS/PLAN: Pain control. Morphine 2 mg IV q4h prn. Topamax 25 mg bid. Neurontin 400 mg HS. LP to measure CSF opening and closing pressure. CSF lab studies. HCT: Negative. HISTORY OF THE PRESENT ILLNESS: 72-y-old female patient with Hx of chronic headaches for many years but was controlled by Topamax HS dosing for 2 to 3 years. She has increased headaches recently and tried OTC and her friend's Narcotics stating did not help. Her headaches persistent and she rated her headaches 9/10. She was therefore admitted for headache control. She stated on 04/06/18 that morphine can help her headaches but her headaches still 7/10 and not resolved. Past Medical History Cardiovascular: HTN Psych: Anxiety, Depression ENT: Sincusitis (chronic ) Endocrine: Diabetes, Hyperthyroidism, Hypothyroidism Past Surgical History Cholecystectomy Social History Smoke: No ALCOHOL: none Drugs: None ALLERGY: reviewed. MEDICATIONS: Refer to [facility] FAMILY HISTORY: Non contributory. SOCIAL HISTORY: Lives at home. Denies smoking, drinking, and illicit drug use. REVIEW OF SYSTEMS: Constitutional: No malnutrition, weight loss, cachexia. Head: No traumatic brain or head injury. Skin: No edema, or rash. Ear: No infection. Eyes: No vision loss or color blindness. Nose: No bleeding or purulent discharges. Hearing: No hearing decrease. Neck: No injury. Breast: No history of cancer, masses,or discharges. Cardiac: CAD, HTN, HLD. Pulmonary: No COPD. GI: No GI ulcer, GI bleeding, GERD. Urinary/genital: UTI. Endocrinologic: Diabetes Mellitus, hypothyroidism, obesity. Skeletomuscular: Generalized weakness. Neurological: see HP. Psychiatric: Denies drug use/abuse. Otherwise, not [id number] review of systems. PHYSICAL EXAMINATION: General appearance is in subacute distress. HEENT: Normocephalic and nontraumatic. Eyes, nose, ears, and throat are unremarkable. Neck is supple. No lymphadenopathy. No bruits are heard over the carotid artery. No crepitus. Cardiovascular: S1, S2, regular rate and rhythm. Pulmonary: Clear to auscultation bilaterally. Abdomen: Bowel sounds are positive. Abdomen is soft, nontender, and nondistended. Extremities: No rash, lesions, or edema. No restriction of range of motion NEUROLOGICAL EXAMINATION: Alert Oriented to time, place and person. PERRL. EOMI. CN: no focal findings. Muscle tone: within normal. Muscle strength: 5- DTR: 2 UE, 1+ at knee due to obesity. Plantar reflex: Flexor response bilaterally Gait: not examined in chair. Sensory exam: no abnormal findings. No cerebellar signs elicited. F-T-N test fine. Objective Objective Vital Signs Date Time Temp Pulse Resp B/P (MAP) Pulse Ox O2 Delivery O2 Flow Rate FiO2 04/06/18 15:00 97.9 62 18 138/60 (86) 98 Room Air 97.9 04/06/18 13:52 2.0 Intake and Output 04/06/18 07:00 Intake Total 1000 ml Balance 1000 ml Intake Oral 1000 ml # Voids 2 Vitals Signs Vitals VS - Last 72 Hours, by Label Date Time Temp Pulse Resp B/P (MAP) Pulse Ox O2 Delivery O2 Flow Rate FiO2 04/06/18 15:00 97.9 62 18 138/60 (86) 98 Room Air 97.9 04/06/18 13:52 Nasal Cannula 2.0 04/06/18 12:20 Room Air 04/06/18 11:33 Room Air 04/06/18 11:00 97.9 59 18 141/62 (88) 98 Room Air 97.9 04/06/18 09:19 64 136/60 04/06/18 09:18 64 136/60 04/06/18 08:16 2.0 04/06/18 07:50 Nasal Cannula 2.0 04/06/18 07:33 Nasal Cannula 2.0 04/06/18 07:00 97.8 64 20 136/60 (85) 98 Nasal Cannula 2.0 97.8 04/06/18 03:02 98.6 59 18 126/65 (85) 93 Nasal Cannula 2.0 98.6 04/05/18 22:32 98.0 67 18 144/61 (88) 94 Nasal Cannula 2.0 98.0 04/05/18 20:59 98 04/05/18 20:29 98 Room Air 04/05/18 20:00 Room Air 04/05/18 19:42 Room Air 04/05/18 19:00 97.9 66 18 133/78 (96) 98 Room Air 97.9 04/05/18 18:42 Room Air 04/05/18 17:30 Room Air 04/05/18 15:30 96.5 69 20 147/88 (107) 95 Room Air 96.5 Laboratory Laboratory Laboratory Tests Test 04/05/18 16:30 04/05/18 20:29 04/05/18 22:00 04/06/18 07:06 White Blood Count 7.4 x10^3/uL (4.0-11.0) Red Blood Count 4.17 x10^6/uL (3.50-5.40) Hemoglobin 12.7 g/dL (12.0-15.5) Hematocrit 37.6 % (36.0-47.0) Mean Corpuscular Volume 90 fL (79-100) Mean Corpuscular Hemoglobin 31 pg (25-35) Mean Corpuscular Hemoglobin Concent 34 g/dL (31-37) Red Cell Distribution Width 15.0 % (11.5-14.5) Platelet Count 279 x10^3/uL (140-400) Neutrophils (%) (Auto) 57 % (31-73) Lymphocytes (%) (Auto) 34 % (24-48) Monocytes (%) (Auto) 7 % (0-9) Eosinophils (%) (Auto) 1 % (0-3) Basophils (%) (Auto) 1 % (0-3) Neutrophils # (Auto) 4.2 x10^3uL (1.8-7.7) Lymphocytes # (Auto) 2.5 x10^3/uL (1.0-4.8) Monocytes # (Auto) 0.5 x10^3/uL (0.0-1.1) Eosinophils # (Auto) 0.1 x10^3/uL (0.0-0.7) Basophils # (Auto) 0.1 x10^3/uL (0.0-0.2) Erythrocyte Sedimentation Rate 9 (0-25) 25-Hydroxy Vitamin D Total 52.9 ng/mL (30-100) Thyroid Stimulating Hormone (TSH) 0.849 uIU/mL (0.358-3.74) Glucose (Fingerstick) 144 mg/dL (70-99) 92 mg/dL (70-99) Nasal Screen MRSA (PCR) Negative (Negative) Test 04/06/18 11:33 04/06/18 15:52 Glucose (Fingerstick) 132 mg/dL (70-99) 98 mg/dL (70-99) Medication Medications Current Medications Acetaminophen/ Codeine Phosphate (Tylenol #3) 1 tab PRN Q4HRS PRN PO PAIN Last administered on 04/05/18 18:42; Start 04/05/18 at 17:45 Aspirin (Children'S Aspirin) 81 mg DAILY PO Last administered on 04/06/18at 09: 19; Start 04/06/18 at 09:00 Atorvastatin Calcium (Lipitor) 20 mg HS PO Last administered on 04/05/18at 21: 51; Start 04/05/18 at 21:00 Carvedilol (Coreg) 6.25 mg BIDWMEALS PO ; Start 04/06/18 at 09:00 Carvedilol (Coreg) 12.5 mg BIDWMEALS PO Last administered on 04/06/18at 09:19; Start 04/05/18 at 18:00; Stop 04/06/18 at 10:23; Status DC Citalopram Hydrobromide (CeleXA) 40 mg DAILY PO Last administered on at 09:21; Start 04/06/18 at 09:00 Clonazepam (KlonoPIN) 0.5 mg QHS PO Last administered on 04/05/18at 21:51; Start 04/05/18 at 21:00 Dextrose (Dextrose 50%-Water Syringe) 12.5 gm PRN Q15MIN PRN IV SEE COMMENTS; Start 04/05/18 at 17:45 Fluticasone Propionate (Flonase) 2 spray BID NS Last administered on at 09:21; Start 04/05/18 at 21:00 Gabapentin (Neurontin) 400 mg HS PO Last administered on 04/05/18at 21:52; Start 04/05/18 at 21:00; Stop 04/06/18 at 10:30; Status DC Gabapentin (Neurontin) 400 mg QHS PO ; Start 04/06/18 at 21:00 Gabapentin (Neurontin) 600 mg BID PO Last administered on 04/05/18at 21:51; Start 04/05/18 at 21:00; Stop 04/06/18 at 10:32; Status DC Gabapentin (Neurontin) 600 mg BID@0900,1500 PO ; Start 04/06/18 at 15:00; Stop 04/06/18 at 15:00; Status DC Glimepiride (Amaryl) 1 mg DAILYWSUP PO ; Start 04/05/18 at 18:00; Stop at 10:37; Status DC Glimepiride (Amaryl) 4 mg DAILYBFRSUP PO ; Start 04/06/18 at 17:00; Stop 04/06 at 17:00; Status DC Glimepiride (Amaryl) 4 mg DAILYWLUN PO Last administered on 04/06/18at 12:20; Start 04/06/18 at 12:15 Heparin Sodium (Porcine) (Heparin Sodium) 5,000 unit Q12HR SQ ; Start 04/05/18 at 21:00 Hydrochlorothiazide (Microzide) 12.5 mg DAILY PO Last administered on at 09:18; Start 04/06/18 at 09:00 Insulin Glargine (Lantus) 4 units QHS SQ ; Start 04/06/18 at 21:00 Insulin Glargine (Lantus) 29 units QHS SQ Last administered on 04/05/18at 22:03 ; Start 04/05/18 at 21:00; Stop 04/06/18 at 10:50; Status DC Insulin Human Lispro (HumaLOG) 0-7 UNITS TIDWMEALS SQ ; Start 04/06/18 at 08:00 Lactobacillus Rhamnosus (Culturelle) 1 cap DAILY PO Last administered on at 09:19; Start 04/06/18 at 09:00 Levothyroxine Sodium (Synthroid) 88 mcg DAILY07 PO ; Start 04/07/18 at 07:00 Levothyroxine Sodium (Synthroid) 112 mcg QHS PO Last administered on at 21:52; Start 04/05/18 at 21:00; Stop 04/06/18 at 10:26; Status DC Losartan Potassium (Cozaar) 50 mg DAILY PO Last administered on 04/06/18at 09: 18; Start 04/06/18 at 09:00 Metoclopramide HCl (Reglan) 5 mg PRN BFRMEAL PRN PO GI SYMPTOMS; Start at 08:45 Mirtazapine (Remeron) 7.5 mg QHS PO Last administered on 04/05/18at 21:51; Start 04/05/18 at 21:00; Stop 04/06/18 at 10:50; Status DC Mirtazapine (Remeron) 45 mg QHS PO ; Start 04/06/18 at 21:00 Multivitamins (Thera M Plus) 1 tab DAILY PO Last administered on 04/06/18at 11: 33; Start 04/06/18 at 11:00 Non-Formulary Medication (Escitalopram Oxalate ) 30 mg DAILY PO ; Start at 09:00; Status UNV Non-Formulary Medication (Glimepiride ) 1 tab DAILYBFRSUP PO ; Start 04/06/18 at 17:00; Status UNV Non-Formulary Medication (Insulin Detemir (Levemir)) 4 unit HS SQ ; Start 04/06 at 21:00; Stop 04/06/18 at 21:00; Status DC Non-Formulary Medication (Omeprazole ) 1 cap DAILY PO ; Start 04/06/18 at 09:00 ; Status UNV Non-Formulary Medication (Topiramate (Topamax)) 1 tab QHS PO ; Start 04/05/18 at 21:00; Status UNV Ondansetron HCl (Zofran Odt) 4 mg PRN Q6HRS PRN PO NAUSEA/VOMITING; Start at 18:00 Ondansetron HCl (Zofran) 4 mg PRN Q6HRS PRN IV NAUSEA/VOMITING, 1st CHOICE; Start 04/05/18 at 17:45 Pantoprazole Sodium (Protonix) 40 mg DAILYAC PO Last administered on at 07:32; Start 04/06/18 at 07:30 Polyethylene Glycol (miraLAX PACKET) 17 gm DAILY PO ; Start 04/06/18 at 09:00 Potassium Chloride (Klor-Con) 10 meq DAILY PO Last administered on 04/06/18at 09:19; Start 04/06/18 at 09:00 Prochlorperazine Edisylate (Compazine) 10 mg PRN Q6HRS PRN IV NAUSEA/VOMITING, 2nd CHOICE; Start 04/05/18 at 17:45 Senna/Docusate Sodium (Senna Plus) 1 tab BID PO Last administered on at 21:51; Start 04/05/18 at 21:00 Topiramate (Topamax) 25 mg HS PO Last administered on 04/05/18at 21:52; Start 04/05/18 at 21:00 Tramadol HCl (Ultram) 50 mg PRN Q6HRS PRN PO MILD TO MODERATE PAIN; Start at 10:30 Vitamin D (Vitamin D3) 5,000 unit DAILY PO Last administered on 04/06/18at 09: 19; Start 04/06/18 at 09:00 Comment Review of Relevant I have reviewed the following items tung (where applicable) has been applied. GLENN ESCOBEDO MD Apr 06, 2018 16:29
[2018-04-06] MEDS ORDERED: GLIMEPIRIDE 2 MG TABLET. PO SCH (17:00)
[2018-04-06] MEDS ORDERED: NON FORMULARY ITEM (Glimepiride 1 TAB) PO SCH (17:00)
[2018-04-06] MEDS: traMADol 50 MG TABLET PO PRN (17:08)
[2018-04-06 19:00] VITALS: BP 105/54
[2018-04-06] MEDS: clonazePAM 0.5 MG TABLET PO SCH (20:12)
[2018-04-06] MEDS: MIRTAZAPINE 15 MG TABLET PO SCH (20:12)
[2018-04-06] MEDS: ATORVASTATIN CALCIUM 20 MG TABLET PO SCH (20:12)
[2018-04-06] MEDS: GABAPENTIN 400 MG CAPSULE. PO SCH (20:12)
[2018-04-06] MEDS: TOPIRAMATE 25 MG TABLET. PO SCH (20:12)
[2018-04-06 20:21] LABS: PROTHROMBIN TIME PATIENT 12.6 SEC (11.7-14.0)
[2018-04-06] MEDS: INSULIN GLARGINE 300 UNITS/3 ML INSULN.PEN. SQ SCH (20:22)
[2018-04-06] MEDS ORDERED: INSULIN DETEMIR 4 UNIT SQ SCH (21:00)
[2018-04-06 23:30] VITALS: BP 124/66
[2018-04-07 03:15] VITALS: BP 116/65
[2018-04-07 05:54] LABS: CALCIUM 9.2 mg/dL (8.5-10.1); CREATININE 1.2 mg/dL (0.6-1.0); GFR 44.4
[2018-04-07] MEDS: LEVOTHYROXINE 88 MCG TABLET PO SCH (06:03)
[2018-04-07 07:00] VITALS: BP 148/81
[2018-04-07] MEDS: INSULIN LISPRO 300 UNITS/3 ML INSULN.PEN. SQ SCH ×3 (08:00→17:00)
[2018-04-07] MEDS: FLUTICASONE 50MCG/NASAL SPRAY 16GM BOTTLE. NS SCH ×2 (08:11→21:16)
[2018-04-07] MEDS: CHOLECALCIFEROL (VITAMIN D3) 5,000 UNIT CAPSULE PO SCH (08:12)
[2018-04-07] MEDS: CARVEDILOL 6.25 MG TABLET. PO SCH ×2 (08:12→17:02)
[2018-04-07] MEDS: LACTOBACILLUS RHAMNOSUS GG 1 CAPSULE. PO SCH (08:12)
[2018-04-07] MEDS: CITALOPRAM 20 MG TABLET. PO SCH (08:12)
[2018-04-07] MEDS: traMADol 50 MG TABLET PO PRN ×2 (08:12→17:03)
[2018-04-07] MEDS: POTASSIUM CHLORIDE 10 MEQ TABLET.ER. PO SCH (08:13)
[2018-04-07] MEDS: TOPIRAMATE 25 MG TABLET. PO SCH ×2 (08:13→21:17)
[2018-04-07] MEDS: PANTOPRAZOLE 40 MG TABLET.DR. PO SCH (08:13)
[2018-04-07] MEDS: SENNOSIDES/DOCUSATE 8.6/50MG TABLET. PO SCH ×2 (08:13→21:17)
[2018-04-07] MEDS: hydroCHLOROthiazide 12.5 MG CAPSULE PO SCH (08:14)
[2018-04-07] MEDS: LOSARTAN POTASSIUM 50 MG TABLET. PO SCH (08:14)
[2018-04-07] MEDS: MULTIVITAMIN with MINERAL TABLET. PO SCH (08:14)
[2018-04-07] MEDS ORDERED: LIDOCAINE WITH 8.4% SOD BICARB 3 ML DISP.SYRIN. INJ ONE (08:15)
[2018-04-07] MEDS: ASPIRIN CHEWABLE 81 MG TABLET. PO SCH (08:34)
[2018-04-07] MEDS: HEPARIN for SUB-Q USE 5,000 UNIT/ML VIAL. SQ SCH (08:34)
--- NOTE | 2018-04-07 09:45 | PDOC ---
Provider Note Provider Note The fluoro guided LP was performed utilizing a 20 g spinal needle without difficulty. 9cc of CSF was removed and sent to the lab for appropriate studies. The patient tolerated the procedure well and was returned to the floor in stable condition. FABIOLA CUEVA MD Apr 07, 2018 09:45
--- NOTE | 2018-04-07 10:16 | RAD ---
Fluoroscopically guided lumbar puncture, 04/07/2018: HISTORY: Headaches Under local anesthesia, aseptic conditions and fluoroscopic guidance a lumbar puncture was performed at the lower L2 level utilizing a 15 cm 20-gauge spinal needle. Initially blood-tinged CSF quickly cleared. The opening pressure was 15 cm of water. A total of 9 cc of CSF was removed and sent to the lab for appropriate studies. The closing pressure was 13 cm of water. 2.8 minutes of fluoroscopy time was utilized. One fluoroscopic spot image was recorded. The patient tolerated the procedure well and was returned to the floor in good condition. Electronically signed by: Kit Rowell MD (04/07/2018 10:14 AM) [facility]
--- NOTE | 2018-04-07 10:39 | PDOC ---
PROGRESS NOTES Chief Complaint Chief Complaint MIgraine headaches, acute on chronic-getting worse lately DM - SSI in house HTN - will cont home meds Anxiety - will cont home meds CAD - stable on meds Obesity - counseled History of Present Illness History of Present Illness Unfortunately still continues to have headache Nauseated but no vomiting Has photophobia and phonophobia She seems very frustrated about it Neurology has increased Topamax to twice a day Discussed with neurology yesterday, recommended LP Patient just got back from LP Still the same headaches Plan Lay flat x 3 hours Follow-up LP results Continue to monitor effects of Topamax and other meds Vitals Vitals Vital Signs Date Time Temp Pulse Resp B/P (MAP) Pulse Ox O2 Delivery O2 Flow Rate FiO2 04/07/18 08:14 63 148/81 04/07/18 08:12 Room Air 04/07/18 07:00 97.7 18 96 97.7 04/07/18 03:15 2.0 Physical Exam General: Alert, Cooperative, mild distress, Other (Oriented to person, location not date) Heart: Regular rate, Normal S1, Normal S2 Lungs: Clear Abdomen: Normal bowel sounds, Soft, No tenderness, No hepatosplenomegaly, No masses Extremities: No clubbing, No cyanosis, No edema, Normal pulses, No tenderness/ swelling Skin: No rashes, No breakdown, No significant lesion Labs LABS Laboratory Tests Test 04/06/18 11:33 04/06/18 15:52 04/06/18 19:55 04/06/18 20:13 Glucose (Fingerstick) 132 mg/dL (70-99) 98 mg/dL (70-99) 151 mg/dL (70-99) Prothrombin Time 12.6 SEC (11.7-14.0) Prothromb Time International Ratio 1.0 (0.8-1.1) Test 04/07/18 04:55 04/07/18 07:32 Prothrombin Time 13.0 SEC (11.7-14.0) Prothromb Time International Ratio 1.0 (0.8-1.1) Sodium Level 139 mmol/L (136-145) Potassium Level 4.0 mmol/L (3.5-5.1) Chloride Level 103 mmol/L (98-107) Carbon Dioxide Level 29 mmol/L (21-32) Anion Gap 7 (6-14) Blood Urea Nitrogen 20 mg/dL (7-20) Creatinine 1.2 mg/dL (0.6-1.0) Estimated GFR (Cockcroft-Gault) 44.4 Glucose Level 85 mg/dL (70-99) Calcium Level 9.2 mg/dL (8.5-10.1) Glucose (Fingerstick) 82 mg/dL (70-99) Review of Systems Review of Systems headAches otherwise rest of 14 point systems reviewed negative Comment Review of Relevant I have reviewed the following items tung (where applicable) has been applied. Labs Laboratory Tests Test 04/05/18 15:46 04/05/18 16:30 04/05/18 20:29 04/05/18 22:00 Glucose (Fingerstick) 97 mg/dL (70-99) 144 mg/dL (70-99) White Blood Count 7.4 x10^3/uL (4.0-11.0) Red Blood Count 4.17 x10^6/uL (3.50-5.40) Hemoglobin 12.7 g/dL (12.0-15.5) Hematocrit 37.6 % (36.0-47.0) Mean Corpuscular Volume 90 fL (79-100) Mean Corpuscular Hemoglobin 31 pg (25-35) Mean Corpuscular Hemoglobin Concent 34 g/dL (31-37) Red Cell Distribution Width 15.0 % (11.5-14.5) Platelet Count 279 x10^3/uL (140-400) Neutrophils (%) (Auto) 57 % (31-73) Lymphocytes (%) (Auto) 34 % (24-48) Monocytes (%) (Auto) 7 % (0-9) Eosinophils (%) (Auto) 1 % (0-3) Basophils (%) (Auto) 1 % (0-3) Neutrophils # (Auto) 4.2 x10^3uL (1.8-7.7) Lymphocytes # (Auto) 2.5 x10^3/uL (1.0-4.8) Monocytes # (Auto) 0.5 x10^3/uL (0.0-1.1) Eosinophils # (Auto) 0.1 x10^3/uL (0.0-0.7) Basophils # (Auto) 0.1 x10^3/uL (0.0-0.2) Erythrocyte Sedimentation Rate 9 (0-25) 25-Hydroxy Vitamin D Total 52.9 ng/mL (30-100) Thyroid Stimulating Hormone (TSH) 0.849 uIU/mL (0.358-3.74) Nasal Screen MRSA (PCR) Negative (Negative) Test 04/06/18 07:06 04/06/18 11:33 04/06/18 15:52 04/06/18 19:55 Glucose (Fingerstick) 92 mg/dL (70-99) 132 mg/dL (70-99) 98 mg/dL (70-99) Prothrombin Time 12.6 SEC (11.7-14.0) Prothromb Time International Ratio 1.0 (0.8-1.1) Test 04/06/18 20:13 04/07/18 04:55 04/07/18 07:32 Glucose (Fingerstick) 151 mg/dL (70-99) 82 mg/dL (70-99) Prothrombin Time 13.0 SEC (11.7-14.0) Prothromb Time International Ratio 1.0 (0.8-1.1) Sodium Level 139 mmol/L (136-145) Potassium Level 4.0 mmol/L (3.5-5.1) Chloride Level 103 mmol/L (98-107) Carbon Dioxide Level 29 mmol/L (21-32) Anion Gap 7 (6-14) Blood Urea Nitrogen 20 mg/dL (7-20) Creatinine 1.2 mg/dL (0.6-1.0) Estimated GFR (Cockcroft-Gault) 44.4 Glucose Level 85 mg/dL (70-99) Calcium Level 9.2 mg/dL (8.5-10.1) Laboratory Tests Test 04/06/18 11:33 04/06/18 15:52 04/06/18 19:55 04/06/18 20:13 Glucose (Fingerstick) 132 mg/dL (70-99) 98 mg/dL (70-99) 151 mg/dL (70-99) Prothrombin Time 12.6 SEC (11.7-14.0) Prothromb Time International Ratio 1.0 (0.8-1.1) Test 04/07/18 04:55 04/07/18 07:32 Prothrombin Time 13.0 SEC (11.7-14.0) Prothromb Time International Ratio 1.0 (0.8-1.1) Sodium Level 139 mmol/L (136-145) Potassium Level 4.0 mmol/L (3.5-5.1) Chloride Level 103 mmol/L (98-107) Carbon Dioxide Level 29 mmol/L (21-32) Anion Gap 7 (6-14) Blood Urea Nitrogen 20 mg/dL (7-20) Creatinine 1.2 mg/dL (0.6-1.0) Estimated GFR (Cockcroft-Gault) 44.4 Glucose Level 85 mg/dL (70-99) Calcium Level 9.2 mg/dL (8.5-10.1) Glucose (Fingerstick) 82 mg/dL (70-99) Medications Current Medications Topiramate (Topamax) 25 mg HS PO Last administered on 04/05/18at 21:52; Start 04/05/18 at 21:00; Stop 04/06/18 at 16:30; Status DC Morphine Sulfate (Morphine Sulfate) 2 mg PRN Q4HRS PRN IV PAIN Last administered on 04/06/18at 11:33; Start 04/05/18 at 16:15 Ondansetron HCl (Zofran) 4 mg PRN Q6HRS PRN IV NAUSEA/VOMITING, 1st CHOICE; Start 04/05/18 at 17:45 Prochlorperazine Edisylate (Compazine) 10 mg PRN Q6HRS PRN IV NAUSEA/VOMITING, 2nd CHOICE; Start 04/05/18 at 17:45 Senna/Docusate Sodium (Senna Plus) 1 tab BID PO Last administered on at 08:13; Start 04/05/18 at 21:00 Heparin Sodium (Porcine) (Heparin Sodium) 5,000 unit Q12HR SQ ; Start 04/05/18 at 21:00; Stop 04/07/18 at 08:49; Status DC Insulin Human Lispro (HumaLOG) 0-7 UNITS TIDWMEALS SQ ; Start 04/06/18 at 08:00 Dextrose (Dextrose 50%-Water Syringe) 12.5 gm PRN Q15MIN PRN IV SEE COMMENTS; Start 04/05/18 at 17:45 Acetaminophen/ Codeine Phosphate (Tylenol #3) 1 tab PRN Q4HRS PRN PO SEVERE PAIN Last administered on 04/05/18at 18:42; Start 04/05/18 at 17:45 Aspirin (Children'S Aspirin) 81 mg DAILY PO Last administered on 04/06/18at 09: 19; Start 04/06/18 at 09:00 Atorvastatin Calcium (Lipitor) 20 mg HS PO Last administered on 04/06/18 20: 12; Start 04/05/18 at 21:00 Carvedilol (Coreg) 12.5 mg BIDWMEALS PO Last administered on 04/06/18 09:19; Start 04/05/18 at 18:00; Stop 04/06/18 at 10:23; Status DC Clonazepam (KlonoPIN) 0.5 mg QHS PO Last administered on 04/06/18at 20:12; Start 04/05/18 at 21:00 Levothyroxine Sodium (Synthroid) 112 mcg QHS PO Last administered on at 21:52; Start 04/05/18 at 21:00; Stop 04/06/18 at 10:26; Status DC Mirtazapine (Remeron) 7.5 mg QHS PO Last administered on 04/05/18at 21:51; Start 04/05/18 at 21:00; Stop 04/06/18 at 10:50; Status DC Potassium Chloride (Klor-Con) 10 meq DAILY PO Last administered on 04/07/18at 08:13; Start 04/06/18 at 09:00 Vitamin D (Vitamin D3) 5,000 unit DAILY PO Last administered on 04/07/18at 08: 12; Start 04/06/18 at 09:00 Citalopram Hydrobromide (CeleXA) 40 mg DAILY PO Last administered on 08:12; Start 04/06/18 at 09:00 Fluticasone Propionate (Flonase) 2 spray BID NS Last administered on 08:11; Start 04/05/18 at 21:00 Gabapentin (Neurontin) 600 mg BID PO Last administered on 04/05/18at 21:51; Start 04/05/18 at 21:00; Stop 04/06/18 at 10:32; Status DC Glimepiride (Amaryl) 1 mg DAILYWSUP PO ; Start 04/05/18 at 18:00; Stop at 10:37; Status DC Glimepiride (Amaryl) 4 mg DAILYBFRSUP PO ; Start 04/06/18 at 17:00; Stop 04/06 at 17:00; Status DC Insulin Glargine (Lantus) 29 units QHS SQ Last administered on 04/05/18at 22:03 ; Start 04/05/18 at 21:00; Stop 04/06/18 at 10:50; Status DC Lactobacillus Rhamnosus (Culturelle) 1 cap DAILY PO Last administered on at 08:12; Start 04/06/18 at 09:00 Losartan Potassium (Cozaar) 50 mg DAILY PO Last administered on 04/07/18at 08: 14; Start 04/06/18 at 09:00 Pantoprazole Sodium (Protonix) 40 mg DAILYAC PO Last administered on at 08:13; Start 04/06/18 at 07:30 Ondansetron HCl (Zofran Odt) 4 mg PRN Q6HRS PRN PO NAUSEA/VOMITING; Start at 18:00 Polyethylene Glycol (miraLAX PACKET) 17 gm DAILY PO ; Start 04/06/18 at 09:00; Stop 04/07/18 at 08:42; Status DC Non-Formulary Medication (Topiramate (Topamax)) 1 tab QHS PO ; Start 04/05/18 at 21:00; Status UNV Hydrochlorothiazide (Microzide) 12.5 mg DAILY PO Last administered on at 08:14; Start 04/06/18 at 09:00 Gabapentin (Neurontin) 400 mg HS PO Last administered on 04/05/18at 21:52; Start 04/05/18 at 21:00; Stop 04/06/18 at 10:30; Status DC Carvedilol (Coreg) 6.25 mg BIDWMEALS PO Last administered on 04/07/18at 08:12; Start 04/06/18 at 09:00 Levothyroxine Sodium (Synthroid) 88 mcg DAILY07 PO Last administered on at 06:03; Start 04/07/18 at 07:00 Metoclopramide HCl (Reglan) 5 mg PRN BFRMEAL PRN PO GI SYMPTOMS; Start at 08:45 Tramadol HCl (Ultram) 50 mg PRN Q6HRS PRN PO MILD TO MODERATE PAIN Last administered on 04/07/18at 08:12; Start 04/06/18 at 10:30 Non-Formulary Medication (Escitalopram Oxalate ) 30 mg DAILY PO ; Start at 09:00; Status UNV Gabapentin (Neurontin) 400 mg QHS PO Last administered on 04/06/18at 20:12; Start 04/06/18 at 21:00 Non-Formulary Medication (Glimepiride ) 1 tab DAILYBFRSUP PO ; Start 04/06/18 at 17:00; Status UNV Non-Formulary Medication (Insulin Detemir (Levemir)) 4 unit HS SQ ; Start 04/06 at 21:00; Stop 04/06/18 at 21:00; Status DC Mirtazapine (Remeron) 45 mg QHS PO Last administered on 04/06/18at 20:12; Start 04/06/18 at 21:00 Multivitamins (Thera M Plus) 1 tab DAILY PO Last administered on 04/07/18at 08: 14; Start 04/06/18 at 11:00 Non-Formulary Medication (Omeprazole ) 1 cap DAILY PO ; Start 04/06/18 at 09:00 ; Status UNV Gabapentin (Neurontin) 600 mg BID@0900,1500 PO ; Start 04/06/18 at 15:00; Stop 04/06/18 at 15:00; Status DC Insulin Glargine (Lantus) 4 units QHS SQ Last administered on 04/06/18at 20:22 ; Start 04/06/18 at 21:00 Glimepiride (Amaryl) 4 mg DAILYWLUN PO Last administered on 04/06/18at 12:20; Start 04/06/18 at 12:15 Topiramate (Topamax) 25 mg BID PO Last administered on 04/07/18at 08:13; Start 04/06/18 at 21:00 Lidocaine/Sodium Bicarbonate (Buffered Lidocaine 1%) 6 ml 1X ONCE INJ Last administered on 04/07/18at 09:50; Start 04/07/18 at 08:15; Stop 04/07/18 at 08 :16; Status DC Polyethylene Glycol (miraLAX PACKET) 17 gm HS PO ; Start 04/07/18 at 21:00 Active Scripts Active Reported Tramadol Hcl 50 Mg Tablet 50 Mg PO Q6HRS PRN Reglan (Metoclopramide Hcl) 10 Mg Tablet 5 Mg PO PRN BFRMEAL PRN Levemir (Insulin Detemir) 100 Unit/1 Ml Vial 4 Unit SQ HS Omeprazole 40 Mg Capsule.dr 1 Cap PO DAILY Levothyroxine Sodium 88 Mcg Tablet 1 Tab PO DAILY07 Mirtazapine 45 Mg Tablet 1 Tab PO QHS Glimepiride 4 Mg Tablet 1 Tab PO DAILYBFRSUP Escitalopram Oxalate 10 Mg Tablet 30 Mg PO DAILY Gabapentin 400 Mg Capsule 400 Mg PO HS Carvedilol 6.25 Mg Tablet 1 Tab PO BID Probiotic (Lactobacillus Acidophilus) 1 Each Capsule 1 Each PO DAILY Multivitamins (Multivitamin) 1 Each Tablet 1 Tab PO DAILY Flonase Allergy Relief (Fluticasone Propionate) 9.9 Ml [place].susp 2 Sprays NS BID Atorvastatin Calcium 20 Mg Tablet 20 Mg PO HS Topamax (Topiramate) 25 Mg Tablet 1 Tab PO QHS Clonazepam 1 Mg Tablet 0.5 Tab PO QHS Vitamin D3 (Cholecalciferol (Vitamin D3)) 5,000 Unit Tablet 1 Tab PO DAILY Potassium Chloride 10 Meq Capsule.er 10 Meq PO DAILY Losartan-Hctz 50-12.5 Mg Tab (Losartan/Hydrochlorothiazide) 1 Each Tablet 1 Tab PO DAILY Miralax (Polyethylene Glycol 3350) 17 Gm Powd.pack 1 Packet PO DAILY Aspirin 81 Mg Tab.chew 1 Tab PO DAILY Vitals/I & O Vital Sign - Last 24 Hours 04/06/18 04/06/18 04/06/18 04/06/18 11:00 11:33 12:20 13:52 Temp 97.9 97.9 Pulse 59 Resp 18 B/P (MAP) 141/62 (88) Pulse Ox 98 O2 Delivery Room Air Room Air Room Air Nasal Cannula O2 Flow Rate 2.0 04/06/18 04/06/18 04/06/18 04/06/18 15:00 17:08 17:08 19:00 Temp 97.9 99.2 97.9 99.2 Pulse 62 60 68 Resp 18 18 B/P (MAP) 138/60 (86) 124/66 105/54 (71) Pulse Ox 98 98 O2 Delivery Room Air Room Air Room Air 04/06/18 04/06/18 04/06/18 04/07/18 19:09 20:00 23:30 03:15 Temp 97.6 97.8 97.6 97.8 Pulse 60 63 Resp 18 18 B/P (MAP) 124/66 (85) 116/65 (82) Pulse Ox 97 95 O2 Delivery Room Air Room Air Room Air Nasal Cannula O2 Flow Rate 2.0 04/07/18 04/07/18 04/07/18 04/07/18 07:00 08:00 08:12 08:12 Temp 97.7 97.7 Pulse 63 63 Resp 18 B/P (MAP) 148/81 (103) 148/81 Pulse Ox 96 O2 Delivery 2L Room Air Room Air 04/07/18 08:14 Pulse 63 B/P (MAP) 148/81 Intake and Output 04/06/18 04/06/18 04/07/18 15:00 23:00 07:00 Intake Total 0 ml 1900 ml 320 ml Balance 0 ml 1900 ml 320 ml RACH RAND MD Apr 07, 2018 10:38
[2018-04-07 10:52] LABS: CSF CLARITY CLEAR; CSF COLOR COLORLESS; CSF RBC COUNT 2; CSF WBC COUNT 1
[2018-04-07 11:00] VITALS: BP 121/67
[2018-04-07] MEDS: GLIMEPIRIDE 2 MG TABLET. PO SCH (13:10)
[2018-04-07] MEDS: MORPHINE SULFATE 2 MG/ML VIAL. IV PRN (14:12)
[2018-04-07 15:00] VITALS: BP 108/62
--- NOTE | 2018-04-07 15:26 | PDOC ---
PROGRESS NOTES Assessment Assessment Worsening of chronic headache. IIP is ruled out. DM HTN CAD Hypothyroidism. Cognitive impairment. Obesity. RECOMMENDATIONS/PLAN: Pain control. Morphine 2 mg IV q4h prn. Topamax 25 mg bid. Neurontin 400 mg HS. LP performed on 04/07/18 with normal CSF opening and closing pressure. HCT: Negative. HISTORY OF THE PRESENT ILLNESS: 72-y-old female patient with Hx of chronic headaches for many years but was controlled by Topamax HS dosing for 2 to 3 years. She has increased headaches recently and tried OTC and her friend's Narcotics stating did not help. Her headaches persistent and she rated her headaches 9/10. She was therefore admitted for headache control. She stated on 04/06/18 that morphine can help her headaches but her headaches still 7/10 and not resolved. Past Medical History Cardiovascular: HTN Psych: Anxiety, Depression ENT: Sincusitis (chronic ) Endocrine: Diabetes, Hyperthyroidism, Hypothyroidism Past Surgical History Cholecystectomy Social History Smoke: No ALCOHOL: none Drugs: None ALLERGY: reviewed. MEDICATIONS: Refer to [facility] FAMILY HISTORY: Non contributory. SOCIAL HISTORY: Lives at home. Denies smoking, drinking, and illicit drug use. REVIEW OF SYSTEMS: Constitutional: No malnutrition, weight loss, cachexia. Head: No traumatic brain or head injury. Skin: No edema, or rash. Ear: No infection. Eyes: No vision loss or color blindness. Nose: No bleeding or purulent discharges. Hearing: No hearing decrease. Neck: No injury. Breast: No history of cancer, masses,or discharges. Cardiac: CAD, HTN, HLD. Pulmonary: No COPD. GI: No GI ulcer, GI bleeding, GERD. Urinary/genital: UTI. Endocrinologic: Diabetes Mellitus, hypothyroidism, obesity. Skeletomuscular: Generalized weakness. Neurological: see HP. Psychiatric: Denies drug use/abuse. Otherwise, not [id number] review of systems. PHYSICAL EXAMINATION: General appearance is in subacute distress. HEENT: Normocephalic and nontraumatic. Eyes, nose, ears, and throat are unremarkable. Neck is supple. No lymphadenopathy. No bruits are heard over the carotid artery. No crepitus. Cardiovascular: S1, S2, regular rate and rhythm. Pulmonary: Clear to auscultation bilaterally. Abdomen: Bowel sounds are positive. Abdomen is soft, nontender, and nondistended. Extremities: No rash, lesions, or edema. No restriction of range of motion NEUROLOGICAL EXAMINATION: Alert Oriented to time, place and person. PERRL. EOMI. CN: no focal findings. Muscle tone: within normal. Muscle strength: 5- DTR: 2 UE, 1+ at knee due to obesity. Plantar reflex: Flexor response bilaterally Gait: not examined in chair. Sensory exam: no abnormal findings. No cerebellar signs elicited. F-T-N test fine. Objective Objective Vital Signs Date Time Temp Pulse Resp B/P (MAP) Pulse Ox O2 Delivery O2 Flow Rate FiO2 04/07/18 14:12 Room Air 04/07/18 11:00 98.0 65 18 121/67 (85) 94 98.0 04/07/18 03:15 2.0 Intake and Output 04/07/18 07:00 Intake Total 2220 ml Balance 2220 ml Intake Oral 2020 ml Tube Feeding 200 ml # Voids 5 # Bowel Movements 1 Vitals Signs Vitals VS - Last 72 Hours, by Label Date Time Temp Pulse Resp B/P (MAP) Pulse Ox O2 Delivery O2 Flow Rate FiO2 04/07/18 14:12 Room Air 04/07/18 11:00 98.0 65 18 121/67 (85) 94 2L 98.0 04/07/18 08:14 63 148/81 04/07/18 08:12 Room Air 04/07/18 08:12 63 148/81 04/07/18 08:00 Room Air 04/07/18 07:00 97.7 63 18 148/81 (103) 96 2L 97.7 04/07/18 03:15 97.8 63 18 116/65 (82) 95 Nasal Cannula 2.0 97.8 04/06/18 23:30 97.6 60 18 124/66 (85) 97 Room Air 97.6 04/06/18 20:00 Room Air 04/06/18 19:09 Room Air 04/06/18 19:00 99.2 68 18 105/54 (71) 98 Room Air 99.2 04/06/18 17:08 Room Air 04/06/18 17:08 60 124/66 04/06/18 15:00 97.9 62 18 138/60 (86) 98 Room Air 97.9 04/06/18 13:52 Nasal Cannula 2.0 04/06/18 12:20 Room Air 04/06/18 11:33 Room Air 04/06/18 11:00 97.9 59 18 141/62 (88) 98 Room Air 97.9 04/06/18 09:19 64 136/60 04/06/18 09:18 64 136/60 04/06/18 08:16 2.0 04/06/18 07:50 Nasal Cannula 2.0 04/06/18 07:33 Nasal Cannula 2.0 04/06/18 07:00 97.8 64 20 136/60 (85) 98 Nasal Cannula 2.0 97.8 Laboratory Laboratory Laboratory Tests Test 04/06/18 15:52 04/06/18 19:55 04/06/18 20:13 04/07/18 04:55 Glucose (Fingerstick) 98 mg/dL (70-99) 151 mg/dL (70-99) Prothrombin Time 12.6 SEC (11.7-14.0) 13.0 SEC (11.7-14.0) Prothromb Time International Ratio 1.0 (0.8-1.1) 1.0 (0.8-1.1) Sodium Level 139 mmol/L (136-145) Potassium Level 4.0 mmol/L (3.5-5.1) Chloride Level 103 mmol/L (98-107) Carbon Dioxide Level 29 mmol/L (21-32) Anion Gap 7 (6-14) Blood Urea Nitrogen 20 mg/dL (7-20) Creatinine 1.2 mg/dL (0.6-1.0) Estimated GFR (Cockcroft-Gault) 44.4 Glucose Level 85 mg/dL (70-99) Calcium Level 9.2 mg/dL (8.5-10.1) Test 04/07/18 07:32 04/07/18 09:50 04/07/18 11:00 Glucose (Fingerstick) 82 mg/dL (70-99) 160 mg/dL (70-99) CSF Color Colorless CSF Clarity Clear CSF WBC 1 CSF RBC 2 CSF Glucose 57 mg/dL (37-70) CSF Total Protein 51.0 mg/dL (15.0-45.0) Microbiology 04/07/18 CSF Gram Stain - Final, Complete Medication Medications Current Medications Gabapentin (Neurontin) 400 mg QHS PO Last administered on 04/06/18at 20:12; Start 04/06/18 at 21:00 Glimepiride (Amaryl) 4 mg DAILYBFRSUP PO ; Start 04/06/18 at 17:00; Stop 04/06 at 17:00; Status DC Insulin Glargine (Lantus) 4 units QHS SQ Last administered on 04/06/18at 20:22 ; Start 04/06/18 at 21:00 Levothyroxine Sodium (Synthroid) 88 mcg DAILY07 PO Last administered on at 06:03; Start 04/07/18 at 07:00 Lidocaine/Sodium Bicarbonate (Buffered Lidocaine 1%) 6 ml 1X ONCE INJ Last administered on 04/07/18at 09:50; Start 04/07/18 at 08:15; Stop 04/07/18 at 08 :16; Status DC Mirtazapine (Remeron) 45 mg QHS PO Last administered on 04/06/18at 20:12; Start 04/06/18 at 21:00 Non-Formulary Medication (Glimepiride ) 1 tab DAILYBFRSUP PO ; Start 04/06/18 at 17:00; Status UNV Non-Formulary Medication (Insulin Detemir (Levemir)) 4 unit HS SQ ; Start 04/06 at 21:00; Stop 04/06/18 at 21:00; Status DC Polyethylene Glycol (miraLAX PACKET) 17 gm HS PO ; Start 04/07/18 at 21:00 Topiramate (Topamax) 25 mg BID PO Last administered on 04/07/18at 08:13; Start 04/06/18 at 21:00 Comment Review of Relevant I have reviewed the following items tung (where applicable) has been applied. GLENN ESCOBEDO MD Apr 07, 2018 15:26
[2018-04-07] MEDS: POLYETHYLENE GLYCOL 3350 17 GM PACKET. PO PRN (17:28)
[2018-04-07 19:00] VITALS: BP 110/55
[2018-04-07] MEDS ORDERED: POLYETHYLENE GLYCOL 3350 17 GM PACKET. PO SCH (21:00)
[2018-04-07] MEDS: ATORVASTATIN CALCIUM 20 MG TABLET PO SCH (21:16)
[2018-04-07] MEDS: GABAPENTIN 400 MG CAPSULE. PO SCH (21:16)
[2018-04-07] MEDS: clonazePAM 0.5 MG TABLET PO SCH (21:16)
[2018-04-07] MEDS: MIRTAZAPINE 15 MG TABLET PO SCH (21:17)
[2018-04-07] MEDS: INSULIN GLARGINE 300 UNITS/3 ML INSULN.PEN. SQ SCH (21:21)
[2018-04-07 23:00] VITALS: BP 124/63
[2018-04-08 03:00] VITALS: BP 113/70
[2018-04-08] MEDS: PANTOPRAZOLE 40 MG TABLET.DR. PO SCH (06:37)
[2018-04-08] MEDS: LEVOTHYROXINE 88 MCG TABLET PO SCH (06:37)
[2018-04-08] MEDS: traMADol 50 MG TABLET PO PRN ×2 (06:41→12:52)
[2018-04-08 07:00] VITALS: BP 139/78
[2018-04-08] MEDS: INSULIN LISPRO 300 UNITS/3 ML INSULN.PEN. SQ SCH ×3 (08:00→17:00)
[2018-04-08] MEDS: hydroCHLOROthiazide 12.5 MG CAPSULE PO SCH (08:56)
[2018-04-08] MEDS: CHOLECALCIFEROL (VITAMIN D3) 5,000 UNIT CAPSULE PO SCH (08:56)
[2018-04-08] MEDS: POTASSIUM CHLORIDE 10 MEQ TABLET.ER. PO SCH (08:56)
[2018-04-08] MEDS: CARVEDILOL 6.25 MG TABLET. PO SCH ×2 (08:57→17:21)
[2018-04-08] MEDS: CITALOPRAM 20 MG TABLET. PO SCH (08:57)
[2018-04-08] MEDS: LACTOBACILLUS RHAMNOSUS GG 1 CAPSULE. PO SCH (08:57)
[2018-04-08] MEDS: SENNOSIDES/DOCUSATE 8.6/50MG TABLET. PO SCH ×2 (08:57→20:57)
[2018-04-08] MEDS: TOPIRAMATE 25 MG TABLET. PO SCH ×2 (08:57→20:58)
[2018-04-08] MEDS: ASPIRIN CHEWABLE 81 MG TABLET. PO SCH (08:57)
[2018-04-08] MEDS: LOSARTAN POTASSIUM 50 MG TABLET. PO SCH (08:57)
[2018-04-08] MEDS: MULTIVITAMIN with MINERAL TABLET. PO SCH (08:57)
[2018-04-08] MEDS: FLUTICASONE 50MCG/NASAL SPRAY 16GM BOTTLE. NS SCH ×2 (08:58→20:58)
[2018-04-08] MEDS: ACETAMINOPHEN/CODEINE 300/30MG TABLET. PO PRN (09:00)
--- NOTE | 2018-04-08 09:58 | PDOC ---
PROGRESS NOTES Chief Complaint Chief Complaint MIgraine headaches, acute on chronic-getting worse lately - status post LP-clean DM - SSI in house HTN - will cont home meds Anxiety - will cont home meds CAD - stable on meds Obesity - counseled History of Present Illness History of Present Illness Unfortunately still continues to have headache Nauseated but no vomiting LP is clean Has photophobia and phonophobia - room is dimmed She seems very frustrated about it Neurology has increased Topamax to twice a day Plan Await neuro rounds for further recs - no improvement NO PT needs Trial/addtn of other meds? Vitals Vitals Vital Signs Date Time Temp Pulse Resp B/P (MAP) Pulse Ox O2 Delivery O2 Flow Rate FiO2 04/08/18 08:57 73 113/70 04/08/18 07:00 97.5 16 98 Nasal Cannula 2.0 97.5 Physical Exam General: Alert, Cooperative, mild distress, Other (Oriented to person, location not date) Heart: Regular rate, Normal S1, Normal S2 Lungs: Clear Abdomen: Normal bowel sounds, Soft, No tenderness, No hepatosplenomegaly, No masses Extremities: No clubbing, No cyanosis, No edema, Normal pulses, No tenderness/ swelling Skin: No rashes, No breakdown, No significant lesion Labs LABS Laboratory Tests Test 04/07/18 11:00 04/07/18 16:43 04/07/18 21:14 04/08/18 08:03 Glucose (Fingerstick) 160 mg/dL (70-99) 124 mg/dL (70-99) 108 mg/dL (70-99) 84 mg/dL (70-99) Review of Systems Review of Systems Headaches, the rest of ROS 14 point is negative Comment Review of Relevant I have reviewed the following items tung (where applicable) has been applied. Labs Laboratory Tests Test 04/06/18 11:33 04/06/18 15:52 04/06/18 19:55 04/06/18 20:13 Glucose (Fingerstick) 132 mg/dL (70-99) 98 mg/dL (70-99) 151 mg/dL (70-99) Prothrombin Time 12.6 SEC (11.7-14.0) Prothromb Time International Ratio 1.0 (0.8-1.1) Test 04/07/18 04:55 04/07/18 07:32 04/07/18 09:50 04/07/18 11:00 Prothrombin Time 13.0 SEC (11.7-14.0) Prothromb Time International Ratio 1.0 (0.8-1.1) Sodium Level 139 mmol/L (136-145) Potassium Level 4.0 mmol/L (3.5-5.1) Chloride Level 103 mmol/L (98-107) Carbon Dioxide Level 29 mmol/L (21-32) Anion Gap 7 (6-14) Blood Urea Nitrogen 20 mg/dL (7-20) Creatinine 1.2 mg/dL (0.6-1.0) Estimated GFR (Cockcroft-Gault) 44.4 Glucose Level 85 mg/dL (70-99) Calcium Level 9.2 mg/dL (8.5-10.1) Glucose (Fingerstick) 82 mg/dL (70-99) 160 mg/dL (70-99) CSF Color Colorless CSF Clarity Clear CSF WBC 1 CSF RBC 2 CSF Glucose 57 mg/dL (37-70) CSF Total Protein 51.0 mg/dL (15.0-45.0) Test 04/07/18 16:43 04/07/18 21:14 04/08/18 08:03 Glucose (Fingerstick) 124 mg/dL (70-99) 108 mg/dL (70-99) 84 mg/dL (70-99) Laboratory Tests Test 04/07/18 11:00 04/07/18 16:43 04/07/18 21:14 04/08/18 08:03 Glucose (Fingerstick) 160 mg/dL (70-99) 124 mg/dL (70-99) 108 mg/dL (70-99) 84 mg/dL (70-99) Microbiology 04/07/18 CSF Gram Stain - Final, Complete Medications Current Medications Topiramate (Topamax) 25 mg HS PO Last administered on 04/05/18at 21:52; Start 04/05/18 at 21:00; Stop 04/06/18 at 16:30; Status DC Morphine Sulfate (Morphine Sulfate) 2 mg PRN Q4HRS PRN IV PAIN Last administered on 04/07/18at 14:12; Start 04/05/18 at 16:15 Ondansetron HCl (Zofran) 4 mg PRN Q6HRS PRN IV NAUSEA/VOMITING, 1st CHOICE; Start 04/05/18 at 17:45 Prochlorperazine Edisylate (Compazine) 10 mg PRN Q6HRS PRN IV NAUSEA/VOMITING, 2nd CHOICE; Start 04/05/18 at 17:45 Senna/Docusate Sodium (Senna Plus) 1 tab BID PO Last administered on 08:57; Start 04/05/18 at 21:00 Heparin Sodium (Porcine) (Heparin Sodium) 5,000 unit Q12HR SQ ; Start 04/05/18 at 21:00; Stop 04/07/18 at 08:49; Status DC Insulin Human Lispro (HumaLOG) 0-7 UNITS TIDWMEALS SQ Last administered on 13:28; Start 04/06/18 at 08:00 Dextrose (Dextrose 50%-Water Syringe) 12.5 gm PRN Q15MIN PRN IV SEE COMMENTS; Start 04/05/18 at 17:45 Acetaminophen/ Codeine Phosphate (Tylenol #3) 1 tab PRN Q4HRS PRN PO SEVERE PAIN Last administered on 04/08/18 09:00; Start 04/05/18 at 17:45 Aspirin (Children'S Aspirin) 81 mg DAILY PO Last administered on 04/08/18 08: 57; Start 04/06/18 at 09:00 Atorvastatin Calcium (Lipitor) 20 mg HS PO Last administered on 04/07/18 21: 16; Start 04/05/18 at 21:00 Carvedilol (Coreg) 12.5 mg BIDWMEALS PO Last administered on 04/06/18 09:19; Start 04/05/18 at 18:00; Stop 04/06/18 at 10:23; Status DC Clonazepam (KlonoPIN) 0.5 mg QHS PO Last administered on 04/07/18 21:16; Start 04/05/18 at 21:00 Levothyroxine Sodium (Synthroid) 112 mcg QHS PO Last administered on 21:52; Start 04/05/18 at 21:00; Stop 04/06/18 at 10:26; Status DC Mirtazapine (Remeron) 7.5 mg QHS PO Last administered on 04/05/18at 21:51; Start 04/05/18 at 21:00; Stop 04/06/18 at 10:50; Status DC Potassium Chloride (Klor-Con) 10 meq DAILY PO Last administered on 04/08/18 08:56; Start 04/06/18 at 09:00 Vitamin D (Vitamin D3) 5,000 unit DAILY PO Last administered on 04/08/18 08: 56; Start 04/06/18 at 09:00 Citalopram Hydrobromide (CeleXA) 40 mg DAILY PO Last administered on 08:57; Start 04/06/18 at 09:00 Fluticasone Propionate (Flonase) 2 spray BID NS Last administered on 08:58; Start 04/05/18 at 21:00 Gabapentin (Neurontin) 600 mg BID PO Last administered on 04/05/18at 21:51; Start 04/05/18 at 21:00; Stop 04/06/18 at 10:32; Status DC Glimepiride (Amaryl) 1 mg DAILYWSUP PO ; Start 04/05/18 at 18:00; Stop at 10:37; Status DC Glimepiride (Amaryl) 4 mg DAILYBFRSUP PO ; Start 04/06/18 at 17:00; Stop 04/06 at 17:00; Status DC Insulin Glargine (Lantus) 29 units QHS SQ Last administered on 04/05/18at 22:03 ; Start 04/05/18 at 21:00; Stop 04/06/18 at 10:50; Status DC Lactobacillus Rhamnosus (Culturelle) 1 cap DAILY PO Last administered on at 08:57; Start 04/06/18 at 09:00 Losartan Potassium (Cozaar) 50 mg DAILY PO Last administered on 04/08/18at 08: 57; Start 04/06/18 at 09:00 Pantoprazole Sodium (Protonix) 40 mg DAILYAC PO Last administered on at 06:37; Start 04/06/18 at 07:30 Ondansetron HCl (Zofran Odt) 4 mg PRN Q6HRS PRN PO NAUSEA/VOMITING; Start at 18:00 Polyethylene Glycol (miraLAX PACKET) 17 gm DAILY PO ; Start 04/06/18 at 09:00; Stop 04/07/18 at 08:42; Status DC Non-Formulary Medication (Topiramate (Topamax)) 1 tab QHS PO ; Start 04/05/18 at 21:00; Status UNV Hydrochlorothiazide (Microzide) 12.5 mg DAILY PO Last administered on 08:56; Start 04/06/18 at 09:00 Gabapentin (Neurontin) 400 mg HS PO Last administered on 04/05/18at 21:52; Start 04/05/18 at 21:00; Stop 04/06/18 at 10:30; Status DC Carvedilol (Coreg) 6.25 mg BIDWMEALS PO Last administered on 04/08/18 08:57; Start 04/06/18 at 09:00 Levothyroxine Sodium (Synthroid) 88 mcg DAILY07 PO Last administered on 06:37; Start 04/07/18 at 07:00 Metoclopramide HCl (Reglan) 5 mg PRN BFRMEAL PRN PO GI SYMPTOMS; Start at 08:45 Tramadol HCl (Ultram) 50 mg PRN Q6HRS PRN PO MILD TO MODERATE PAIN Last administered on 04/08/18at 06:41; Start 04/06/18 at 10:30 Non-Formulary Medication (Escitalopram Oxalate ) 30 mg DAILY PO ; Start at 09:00; Status UNV Gabapentin (Neurontin) 400 mg QHS PO Last administered on 04/07/18at 21:16; Start 04/06/18 at 21:00 Non-Formulary Medication (Glimepiride ) 1 tab DAILYBFRSUP PO ; Start 04/06/18 at 17:00; Status UNV Non-Formulary Medication (Insulin Detemir (Levemir)) 4 unit HS SQ ; Start 04/06 at 21:00; Stop 04/06/18 at 21:00; Status DC Mirtazapine (Remeron) 45 mg QHS PO Last administered on 04/07/18at 21:17; Start 04/06/18 at 21:00 Multivitamins (Thera M Plus) 1 tab DAILY PO Last administered on 04/08/18at 08: 57; Start 04/06/18 at 11:00 Non-Formulary Medication (Omeprazole ) 1 cap DAILY PO ; Start 04/06/18 at 09:00 ; Status UNV Gabapentin (Neurontin) 600 mg BID@0900,1500 PO ; Start 04/06/18 at 15:00; Stop 04/06/18 at 15:00; Status DC Insulin Glargine (Lantus) 4 units QHS SQ Last administered on 04/07/18at 21:21 ; Start 04/06/18 at 21:00 Glimepiride (Amaryl) 4 mg DAILYWLUN PO Last administered on 04/07/18at 13:10; Start 04/06/18 at 12:15 Topiramate (Topamax) 25 mg BID PO Last administered on 04/08/18at 08:57; Start 04/06/18 at 21:00 Lidocaine/Sodium Bicarbonate (Buffered Lidocaine 1%) 6 ml 1X ONCE INJ Last administered on 04/07/18at 09:50; Start 04/07/18 at 08:15; Stop 04/07/18 at 08 :16; Status DC Polyethylene Glycol (miraLAX PACKET) 17 gm HS PO ; Start 04/07/18 at 21:00; Stop 04/07/18 at 21:00; Status DC Polyethylene Glycol (miraLAX PACKET) 17 gm PRN DAILY PRN PO CONSTIPATION Last administered on 04/07/18at 17:28; Start 04/07/18 at 17:30 Active Scripts Active Reported Tramadol Hcl 50 Mg Tablet 50 Mg PO Q6HRS PRN Reglan (Metoclopramide Hcl) 10 Mg Tablet 5 Mg PO PRN BFRMEAL PRN Levemir (Insulin Detemir) 100 Unit/1 Ml Vial 4 Unit SQ HS Omeprazole 40 Mg Capsule.dr 1 Cap PO DAILY Levothyroxine Sodium 88 Mcg Tablet 1 Tab PO DAILY07 Mirtazapine 45 Mg Tablet 1 Tab PO QHS Glimepiride 4 Mg Tablet 1 Tab PO DAILYBFRSUP Escitalopram Oxalate 10 Mg Tablet 30 Mg PO DAILY Gabapentin 400 Mg Capsule 400 Mg PO HS Carvedilol 6.25 Mg Tablet 1 Tab PO BID Probiotic (Lactobacillus Acidophilus) 1 Each Capsule 1 Each PO DAILY Multivitamins (Multivitamin) 1 Each Tablet 1 Tab PO DAILY Flonase Allergy Relief (Fluticasone Propionate) 9.9 Ml [place].susp 2 Sprays NS BID Atorvastatin Calcium 20 Mg Tablet 20 Mg PO HS Topamax (Topiramate) 25 Mg Tablet 1 Tab PO QHS Clonazepam 1 Mg Tablet 0.5 Tab PO QHS Vitamin D3 (Cholecalciferol (Vitamin D3)) 5,000 Unit Tablet 1 Tab PO DAILY Potassium Chloride 10 Meq Capsule.er 10 Meq PO DAILY Losartan-Hctz 50-12.5 Mg Tab (Losartan/Hydrochlorothiazide) 1 Each Tablet 1 Tab PO DAILY Miralax (Polyethylene Glycol 3350) 17 Gm Powd.pack 1 Packet PO DAILY Aspirin 81 Mg Tab.chew 1 Tab PO DAILY Vitals/I & O Vital Sign - Last 24 Hours 04/07/18 04/07/18 04/07/18 04/07/18 11:00 14:12 15:00 17:02 Temp 98.0 98.0 98.0 98.0 Pulse 65 67 67 Resp 18 18 B/P (MAP) 121/67 (85) 108/62 (77) 108/62 Pulse Ox 94 90 O2 Delivery 2L Room Air 2l 04/07/18 04/07/18 04/07/18 04/07/18 17:03 19:00 19:25 20:00 Temp 98.4 98.4 Pulse 62 Resp 18 B/P (MAP) 110/55 (73) Pulse Ox 93 O2 Delivery Room Air Room Air Room Air Nasal Cannula O2 Flow Rate 2.0 04/07/18 04/08/18 04/08/18 04/08/18 23:00 03:00 06:41 07:00 Temp 97.5 97.8 97.5 97.5 97.8 97.5 Pulse 70 73 68 Resp 18 18 18 16 B/P (MAP) 124/63 (83) 113/70 (84) 139/78 (98) Pulse Ox 97 95 95 98 O2 Delivery Room Air Room Air Nasal Cannula Nasal Cannula O2 Flow Rate 2.0 2.0 04/08/18 04/08/18 08:57 08:57 Pulse 73 73 B/P (MAP) 113/70 113/70 Intake and Output 04/07/18 04/07/18 04/08/18 15:00 23:00 07:00 Intake Total 800 ml 1000 ml 600 ml Balance 800 ml 1000 ml 600 ml TERMULO,RACH Y MD Apr 08, 2018 09:58
[2018-04-08] MEDS: NAPROXEN 500 MG TABLET PO SCH ×2 (10:40→20:58)
[2018-04-08 11:00] VITALS: BP 111/63
[2018-04-08] MEDS: GLIMEPIRIDE 2 MG TABLET. PO SCH (12:49)
[2018-04-08 15:00] VITALS: BP 100/58
--- NOTE | 2018-04-08 15:47 | PDOC ---
PROGRESS NOTES Assessment Assessment Worsening of chronic headache. IIP is ruled out. DM HTN CAD Hypothyroidism. Cognitive impairment. Obesity. RECOMMENDATIONS/PLAN: Pain control. Morphine 2 mg IV q4h prn. Topamax 25 mg bid. Neurontin 400 mg HS. Continue current treatment to see if improving on 04/09/18. LP performed on 04/07/18 with normal CSF opening and closing pressure. HCT: Negative. HISTORY OF THE PRESENT ILLNESS: 72-y-old female patient with Hx of chronic headaches for many years but was controlled by Topamax HS dosing for 2 to 3 years. She has increased headaches recently and tried OTC and her friend's Narcotics stating did not help. Her headaches persistent and she rated her headaches 9/10. She was therefore admitted for headache control. She stated on 04/06/18 that morphine can help her headaches but her headaches still 7/10 and not resolved. She stated on 04/08/18 that she still had significant headaches. Past Medical History Cardiovascular: HTN Psych: Anxiety, Depression ENT: Sincusitis (chronic ) Endocrine: Diabetes, Hyperthyroidism, Hypothyroidism Past Surgical History Cholecystectomy Social History Smoke: No ALCOHOL: none Drugs: None ALLERGY: reviewed. MEDICATIONS: Refer to [facility] FAMILY HISTORY: Non contributory. SOCIAL HISTORY: Lives at home. Denies smoking, drinking, and illicit drug use. REVIEW OF SYSTEMS: Constitutional: No malnutrition, weight loss, cachexia. Head: No traumatic brain or head injury. Skin: No edema, or rash. Ear: No infection. Eyes: No vision loss or color blindness. Nose: No bleeding or purulent discharges. Hearing: No hearing decrease. Neck: No injury. Breast: No history of cancer, masses,or discharges. Cardiac: CAD, HTN, HLD. Pulmonary: No COPD. GI: No GI ulcer, GI bleeding, GERD. Urinary/genital: UTI. Endocrinologic: Diabetes Mellitus, hypothyroidism, obesity. Skeletomuscular: Generalized weakness. Neurological: see HP. Psychiatric: Denies drug use/abuse. Otherwise, not [id number] review of systems. PHYSICAL EXAMINATION: General appearance is in subacute distress. HEENT: Normocephalic and nontraumatic. Eyes, nose, ears, and throat are unremarkable. Neck is supple. No lymphadenopathy. No bruits are heard over the carotid artery. No crepitus. Cardiovascular: S1, S2, regular rate and rhythm. Pulmonary: Clear to auscultation bilaterally. Abdomen: Bowel sounds are positive. Abdomen is soft, nontender, and nondistended. Extremities: No rash, lesions, or edema. No restriction of range of motion NEUROLOGICAL EXAMINATION: Alert Oriented to time, place and person. PERRL. EOMI. CN: no focal findings. Muscle tone: within normal. Muscle strength: 5- DTR: 2 UE, 1+ at knee due to obesity. Plantar reflex: Flexor response bilaterally Gait: Able to walk slowing. Sensory exam: no abnormal findings. No cerebellar signs elicited. F-T-N test fine. Objective Objective Vital Signs Date Time Temp Pulse Resp B/P (MAP) Pulse Ox O2 Delivery O2 Flow Rate FiO2 04/08/18 14:22 Nasal Cannula 04/08/18 11:00 97.7 61 20 111/63 (79) 98 2.0 97.7 Intake and Output 04/08/18 07:00 Intake Total 2400 ml Balance 2400 ml Intake Oral 2400 ml # Voids 2 Vitals Signs Vitals VS - Last 72 Hours, by Label Date Time Temp Pulse Resp B/P (MAP) Pulse Ox O2 Delivery O2 Flow Rate FiO2 04/08/18 14:22 Nasal Cannula 04/08/18 11:00 97.7 61 20 111/63 (79) 98 Nasal Cannula 2.0 97.7 04/08/18 08:57 73 113/70 04/08/18 08:57 73 113/70 04/08/18 08:00 Nasal Cannula 04/08/18 07:00 97.5 68 16 139/78 (98) 98 Nasal Cannula 2.0 97.5 04/08/18 06:41 18 95 Nasal Cannula 2.0 04/08/18 03:00 97.8 73 18 113/70 (84) 95 Room Air 97.8 04/07/18 23:00 97.5 70 18 124/63 (83) 97 Room Air 97.5 04/07/18 20:00 Nasal Cannula 2.0 04/07/18 19:00 98.4 62 18 110/55 (73) 93 Room Air 98.4 04/07/18 17:03 Room Air 04/07/18 17:02 67 108/62 04/07/18 15:00 98.0 67 18 108/62 (77) 90 2l 98.0 04/07/18 14:12 Room Air 04/07/18 11:00 98.0 65 18 121/67 (85) 94 2L 98.0 04/07/18 08:14 63 148/81 04/07/18 08:12 Room Air 04/07/18 08:12 63 148/81 04/07/18 08:00 Room Air 04/07/18 07:00 97.7 63 18 148/81 (103) 96 2L 97.7 Laboratory Laboratory Laboratory Tests Test 04/07/18 16:43 04/07/18 21:14 04/08/18 08:03 04/08/18 11:48 Glucose (Fingerstick) 124 mg/dL (70-99) 108 mg/dL (70-99) 84 mg/dL (70-99) 134 mg/dL (70-99) Microbiology 04/07/18 CSF Gram Stain - Final, Complete Medication Medications Current Medications Naproxen (Naprosyn) 500 mg BID PO Last administered on 04/08/18at 10:40; Start 04/08/18 at 10:00 Polyethylene Glycol (miraLAX PACKET) 17 gm HS PO ; Start 04/07/18 at 21:00; Stop 04/07/18 at 21:00; Status DC Polyethylene Glycol (miraLAX PACKET) 17 gm PRN DAILY PRN PO CONSTIPATION Last administered on 04/07/18at 17:28; Start 04/07/18 at 17:30 Vitamin D (Vitamin D3) 2,000 unit DAILY PO ; Start 04/09/18 at 09:00 Comment Review of Relevant I have reviewed the following items tung (where applicable) has been applied. GLENN ESCOBEDO MD Apr 08, 2018 15:47
[2018-04-08 19:00] VITALS: BP 105/57
[2018-04-08] MEDS: GABAPENTIN 400 MG CAPSULE. PO SCH (20:58)
[2018-04-08] MEDS: clonazePAM 0.5 MG TABLET PO SCH (20:58)
[2018-04-08] MEDS: ATORVASTATIN CALCIUM 20 MG TABLET PO SCH (20:58)
[2018-04-08] MEDS: MIRTAZAPINE 15 MG TABLET PO SCH (20:58)
[2018-04-08] MEDS: INSULIN GLARGINE 300 UNITS/3 ML INSULN.PEN. SQ SCH (21:04)
[2018-04-08] MEDS: POLYETHYLENE GLYCOL 3350 17 GM PACKET. PO PRN (21:09)
[2018-04-08 23:00] VITALS: BP 90/53
[2018-04-09 03:00] VITALS: BP 129/65
[2018-04-09] MEDS: LEVOTHYROXINE 88 MCG TABLET PO SCH (05:23)
[2018-04-09 07:00] VITALS: BP 123/68
[2018-04-09] MEDS: INSULIN LISPRO 300 UNITS/3 ML INSULN.PEN. SQ SCH ×2 (08:00→12:00)
[2018-04-09] MEDS: hydroCHLOROthiazide 12.5 MG CAPSULE PO SCH (08:28)
[2018-04-09] MEDS: PANTOPRAZOLE 40 MG TABLET.DR. PO SCH (08:29)
[2018-04-09] MEDS: NAPROXEN 500 MG TABLET PO SCH (08:29)
[2018-04-09] MEDS: TOPIRAMATE 25 MG TABLET. PO SCH (08:29)
[2018-04-09] MEDS: CARVEDILOL 6.25 MG TABLET. PO SCH (08:29)
[2018-04-09] MEDS: MULTIVITAMIN with MINERAL TABLET. PO SCH (08:29)
[2018-04-09] MEDS: LOSARTAN POTASSIUM 50 MG TABLET. PO SCH (08:29)
[2018-04-09] MEDS: ASPIRIN CHEWABLE 81 MG TABLET. PO SCH (08:30)
[2018-04-09] MEDS: SENNOSIDES/DOCUSATE 8.6/50MG TABLET. PO SCH (08:30)
[2018-04-09] MEDS: LACTOBACILLUS RHAMNOSUS GG 1 CAPSULE. PO SCH (08:30)
[2018-04-09] MEDS: CITALOPRAM 20 MG TABLET. PO SCH (08:30)
[2018-04-09] MEDS: POTASSIUM CHLORIDE 10 MEQ TABLET.ER. PO SCH (08:30)
[2018-04-09] MEDS: FLUTICASONE 50MCG/NASAL SPRAY 16GM BOTTLE. NS SCH (08:31)
[2018-04-09] MEDS ORDERED: CHOLECALCIFEROL (VITAMIN D3) 1,000 UNIT TABLET PO SCH (09:00)
[2018-04-09 11:00] VITALS: BP 122/71
[2018-04-09] MEDS ORDERED: HYDR12.53 PO (11:32)
[2018-04-09] MEDS ORDERED: TOPI25TA52 PO ×2 (11:32→11:35)
[2018-04-09] MEDS ORDERED: NAPR-683 PO (11:32)
--- NOTE | 2018-04-09 11:37 | PDOC3 ---
Discharge Summary Visit Information Date of Admission: Apr 05, 2018 Date of Discharge: Apr 09, 2018 Admitting Diagnosis Comment: MIgraine headaches, acute on chronic-getting worse lately - status post LP-clean DM - SSI in house HTN - will cont home meds Anxiety - will cont home meds CAD - stable on meds Obesity - counseled Brief Hospital Course Allergies Allergies Coded Allergies Type Severity Reaction Last Updated Verified Sulfa (Sulfonamide Antibiotics) Allergy Intermediate 03/26/17 Yes aripiprazole Allergy Intermediate 03/26/17 Yes doxycycline Allergy Intermediate 03/26/17 Yes pseudoephedrine Allergy Intermediate 03/26/17 Yes I S O L A T I O N *CONTACT* Allergy Unknown 03/24/17 Yes Vital Signs Vital Signs Date Time Temp Pulse Resp B/P (MAP) Pulse Ox O2 Delivery O2 Flow Rate FiO2 04/09/18 08:29 65 129/65 04/09/18 07:00 97.8 16 99 Nasal Cannula 2.0 97.8 Lab Results Laboratory Tests Test 04/07/18 16:43 04/07/18 21:14 04/08/18 08:03 04/08/18 11:48 Glucose (Fingerstick) 124 mg/dL (70-99) 108 mg/dL (70-99) 84 mg/dL (70-99) 134 mg/dL (70-99) Test 04/08/18 16:45 04/08/18 21:02 04/09/18 07:54 Glucose (Fingerstick) 128 mg/dL (70-99) 151 mg/dL (70-99) 89 mg/dL (70-99) Laboratory Tests Test 04/08/18 11:48 04/08/18 16:45 04/08/18 21:02 04/09/18 07:54 Glucose (Fingerstick) 134 mg/dL (70-99) 128 mg/dL (70-99) 151 mg/dL (70-99) 89 mg/dL (70-99) Brief Hospital Course Ms. Mike is a 72 old woman patient of Dr. lozano/neurology because of chronic migraine headaches. Admitted because of worsening migraine headaches for the past 2 weeks. She claims she has tried everything. She is on Neurontin 400 daily at bedtime and Topamax 25 daily at bedtime among many other meds. CT brain is neg,. she Stayed 4 days with us bec of uncontrolled headaches. LP was needed to be done to rule out meningitis and that is perfectly clean. I added some NSAID 500 twice a day naproxen and she is now better. I'm Rxing Topamax 25 twice a day as discussed with neurology and also some NSAID. No home health/PT needs Consults performed neurology-actually neurology's primary service- we were consulted Procedures performed LP time 32 mins > 50% dc educn and cousnelling Discharge Information Condition at Discharge: Improved, Stable Disposition/Orders: D/C to Home Scheduled Aspirin (Aspirin) 81 Mg Tab.chew, 1 TAB PO DAILY, #30 Ref 3 (Reported) Entered as Reported by: YANIRA VIGIL on 10/16/14 1345 Last Action: Reviewed on 04/05/181754 by MONICA VELASCO Atorvastatin Calcium (Atorvastatin Calcium) 20 Mg Tablet, 20 MG PO HS for FOR CHOLESTEROL, #30 Ref 0 (Reported) Entered as Reported by: ERWIN HUNT on 03/23/17748 Last Action: Reviewed on 04/05/181754 by MONICA VELASCO Carvedilol (Carvedilol) 6.25 Mg Tablet, 1 TAB PO BID, #180 Ref 1 (Reported) Entered as Reported by: MONICA VELASCO on 04/05/181754 Last Taken: Unknown Dose on Unknown Date & Time Last Action: Continued on 04/06/18838 by RACH RAND Cholecalciferol (Vitamin D3) (Vitamin D3) 5,000 Unit Tablet, 1 TAB PO DAILY, #30 (Reported) Entered as Reported by: ERWIN HUNT on 03/23/17721 Last Action: Reviewed on 04/05/181754 by MONICA VELASCO Clonazepam (Clonazepam) 1 Mg Tablet, 0.5 TAB PO QHS, #30 (Reported) Entered as Reported by: ERWIN HUNT on 03/23/17721 Last Action: Reviewed on 04/05/181754 by MONICA VELASCO Escitalopram Oxalate (Escitalopram Oxalate) 10 Mg Tablet, 30 MG PO DAILY, ( Reported) Entered as Reported by: MONICA VELASCO on 04/05/181754 Last Taken: Unknown Dose on Unknown Date & Time Last Action: Converted on 04/06/18838 by RACH RAND Fluticasone Propionate (Flonase Allergy Relief) 9.9 Ml [place].susp, 2 SPRAYS NS BID, (Reported) Entered as Reported by: ERWIN HUNT on 03/23/17748 Last Action: Reviewed on 04/05/181754 by MONICA VELASCO Gabapentin (Gabapentin) 400 Mg Capsule, 400 MG PO HS, (Reported) Entered as Reported by: MONICA VELASCO on 04/05/181754 Last Taken: Unknown Dose on Unknown Date & Time Last Action: Converted on 04/06/18838 by RACH RAND Glimepiride (Glimepiride) 4 Mg Tablet, 1 TAB PO DAILYBFRSUP, #30 Ref 5 (Reported ) Entered as Reported by: MONICA VELASCO on 04/05/181754 Last Taken: Unknown Dose on Unknown Date & Time Last Action: Converted on 04/06/18838 by RACH RAND Insulin Detemir (Levemir) 100 Unit/1 Ml Vial, 4 UNIT SQ HS, (Reported) Entered as Reported by: MONICA VELASCO on 04/05/181754 Last Taken: Unknown Dose on Unknown Date & Time Last Action: Converted on 04/06/18838 by RACH RAND Lactobacillus Acidophilus (Probiotic) 1 Each Capsule, 1 EACH PO DAILY, (Reported ) Entered as Reported by: ERWIN HUNT on 03/23/17748 Last Action: Reviewed on 04/05/181754 by MONICA VELASCO Levothyroxine Sodium (Levothyroxine Sodium) 88 Mcg Tablet, 1 TAB PO DAILY07, # 30 Ref 5 (Reported) Entered as Reported by: MONICA VELASCO on 04/05/181754 Last Taken: Unknown Dose on Unknown Date & Time Last Action: Continued on 04/06/18838 by RACH RAND Losartan/Hydrochlorothiazide (Losartan-Hctz 50-12.5 Mg Tab) 1 Each Tablet, 1 TAB PO DAILY, #30 Ref 5 (Reported) Entered as Reported by: ERWIN HUNT on 03/23/17721 Last Action: Reviewed on 04/05/181754 by MONICA VELASCO Mirtazapine (Mirtazapine) 45 Mg Tablet, 1 TAB PO QHS, #30 Ref 1 (Reported) Entered as Reported by: MONICA VELASCO on 04/05/181754 Last Taken: Unknown Dose on Unknown Date & Time Last Action: Converted on 04/06/18838 by RACH RAND Multivitamin (Multivitamins) 1 Each Tablet, 1 TAB PO DAILY, #90 Ref 3 (Reported) Entered as Reported by: ERWIN HUNT on 03/23/17748 Last Action: Converted on 04/06/18838 by RACH RAND Naproxen (Naprosyn) 500 Mg Tablet, 500 MG PO BID, #30 Prescribed by: RACH RAND on 04/09/18 1132 Omeprazole (Omeprazole) 40 Mg Capsule.dr, 1 CAP PO DAILY, #30 Ref 3 (Reported) Entered as Reported by: MONICA VELASCO on 04/05/181754 Last Taken: Unknown Dose on Unknown Date & Time Last Action: Converted on 04/06/18838 by RACH RAND Polyethylene Glycol 3350 (Miralax) 17 Gm Powd.pack, 1 PACKET PO DAILY, #30 Ref 3 (Reported) Entered as Reported by: ERWIN HUNT on 03/23/17721 Last Action: Reviewed on 04/05/181754 by MONICA VELASCO Potassium Chloride (Potassium Chloride) 10 Meq Capsule.er, 10 MEQ PO DAILY, ( Reported) Entered as Reported by: ERWIN HUNT on 03/23/17721 Last Action: Reviewed on 04/05/181754 by MONICA VELASCO Topiramate (Topamax) 25 Mg Tablet, 1 TAB PO BID, #60 Ref 2 Prescribed by: RACH RAND on 04/09/18 1135 Scheduled PRN Metoclopramide Hcl (Reglan) 10 Mg Tablet, 5 MG PO PRN BFRMEAL PRN for GI SYMPTOMS, #120 Ref 0 (Reported) Entered as Reported by: MONICA VELASCO on 04/05/181754 Last Taken: Unknown Dose on Unknown Date & Time Last Action: Continued on 04/06/18838 by RACH RAND Tramadol Hcl (Tramadol Hcl) 50 Mg Tablet, 50 MG PO Q6HRS PRN for PAIN, (Reported ) Entered as Reported by: MONICA VELASCO on 04/05/181754 Last Taken: Unknown Dose on 04/05/18 Last Action: Continued on 04/06/1839 by RACH RAND Discontinued Medications Escitalopram Oxalate (Escitalopram Oxalate) 20 Mg Tablet, 1 TAB PO DAILY, #30 Ref 5 (Reported) Entered as Reported by: ERWIN HUNT on 03/23/17748 Last Action: Discontinued on 04/05/181754 by MONICA VELASCO Gabapentin (Gabapentin) 600 Mg Tablet, 600 MG PO BID, (Reported) Entered as Reported by: ERWIN HUNT on 03/23/17748 Last Action: Discontinued on 04/05/181754 by MONICA VELASCO Glimepiride (Glimepiride) 1 Mg Tablet, 1 TAB PO DAILYWSUP, #30 Ref 5 (Reported) Entered as Reported by: ERWIN HUNT on 03/23/17721 Last Action: Discontinued on 04/05/181754 by MONICA VELASCO Glimepiride (Glimepiride) 4 Mg Tablet, 1 TAB PO DAILYWLUN, #30 Ref 5 (Reported) Entered as Reported by: ERWIN HUNT on 03/23/17721 Last Action: Discontinued on 04/05/181754 by MONICA VELASCO Insulin Detemir (Levemir) 100 Unit/1 Ml Vial, 29 UNIT SQ QHS, (Reported) Entered as Reported by: ERWIN HUNT on 03/23/17748 Last Action: Discontinued on 04/05/181754 by MONICA VELASCO Levothyroxine Sodium (Levo-T) 112 Mcg Tablet, 112 MCG PO QHS, (Reported) Entered as Reported by: ERWIN HUNT on 03/23/17748 Last Action: Discontinued on 04/05/181754 by MONICA VELASCO Mirtazapine (Mirtazapine) 7.5 Mg Tablet, 7.5 MG PO QHS, (Reported) Entered as Reported by: YANIRA VIGIL on 5/4/15 1345 Last Action: Discontinued on 04/05/181754 by MONICA VELASCO Omeprazole (Omeprazole) 10 Mg Capsule., 30 MG PO DAILY, (Reported) Entered as Reported by: YANIRA VIGIL on 10/16/141344 Last Action: Discontinued on 04/05/181754 by MONICA VELASCO Ondansetron Hcl (Zofran) 4 Mg Tablet, 1 TAB PO PRN Q6-8HRS, #5 (Reported) Entered as Reported by: ERWIN HUNT on 03/23/17748 Last Action: Discontinued on 04/05/181754 by MONICA VELASCO Topiramate (Topamax) 25 Mg Tablet, 1 TAB PO QHS, #60 Ref 2 (Reported) Discontinued Reason: Prescription changed Entered as Reported by: ERWIN HUNT on 03/23/17748 Last Action: Reviewed on 04/05/181754 by MONICA VELASCO [Ivig] , 1 Q4WK, (Reported) Entered as Reported by: ERWIN HUNT on 03/23/17748 Last Action: Discontinued on 04/05/181754 by RACH VILLARREAL MD Apr 09, 2018 11:37
[2018-04-09] MEDS: GLIMEPIRIDE 2 MG TABLET. PO SCH (12:21)
--- NOTE | 2018-04-09 17:29 | PDOC ---
PROGRESS NOTES Assessment Assessment Worsening of chronic headache. IIP is ruled out. DM HTN CAD Hypothyroidism. Cognitive impairment. Obesity. RECOMMENDATIONS/PLAN: Continue Topamax 25 mg bid. Continue Neurontin 400 mg HS. FU at [facility]rology [facility]. FU with PCP. LP performed on 04/07/18 with normal CSF opening and closing pressure. HCT: Negative. HISTORY OF THE PRESENT ILLNESS: 72-y-old female patient with Hx of chronic headaches for many years but was controlled by Topamax HS dosing for 2 to 3 years. She has increased headaches recently and tried OTC and her friend's Narcotics stating did not help. Her headaches persistent and she rated her headaches 9/10. She was therefore admitted for headache control. She stated on 04/06/18 that morphine can help her headaches but her headaches still 7/10 and not resolved. She stated on 04/09/18 that her headaches were much improved. Past Medical History Cardiovascular: HTN Psych: Anxiety, Depression ENT: Sincusitis (chronic ) Endocrine: Diabetes, Hyperthyroidism, Hypothyroidism Past Surgical History Cholecystectomy Social History Smoke: No ALCOHOL: none Drugs: None ALLERGY: reviewed. MEDICATIONS: Refer to [facility] FAMILY HISTORY: Non contributory. SOCIAL HISTORY: Lives at home. Denies smoking, drinking, and illicit drug use. REVIEW OF SYSTEMS: Constitutional: No malnutrition, weight loss, cachexia. Head: No traumatic brain or head injury. Skin: No edema, or rash. Ear: No infection. Eyes: No vision loss or color blindness. Nose: No bleeding or purulent discharges. Hearing: No hearing decrease. Neck: No injury. Breast: No history of cancer, masses,or discharges. Cardiac: CAD, HTN, HLD. Pulmonary: No COPD. GI: No GI ulcer, GI bleeding, GERD. Urinary/genital: UTI. Endocrinologic: Diabetes Mellitus, hypothyroidism, obesity. Skeletomuscular: Generalized weakness. Neurological: see HP. Psychiatric: Denies drug use/abuse. Otherwise, not [id number] review of systems. PHYSICAL EXAMINATION: General appearance is in subacute distress. HEENT: Normocephalic and nontraumatic. Eyes, nose, ears, and throat are unremarkable. Neck is supple. No lymphadenopathy. No bruits are heard over the carotid artery. No crepitus. Cardiovascular: S1, S2, regular rate and rhythm. Pulmonary: Clear to auscultation bilaterally. Abdomen: Bowel sounds are positive. Abdomen is soft, nontender, and nondistended. Extremities: No rash, lesions, or edema. No restriction of range of motion NEUROLOGICAL EXAMINATION: Alert Oriented to time, place and person. PERRL. EOMI. CN: no focal findings. Muscle tone: within normal. Muscle strength: 5- DTR: 2 UE, 1+ at knee due to obesity. Plantar reflex: Flexor response bilaterally Gait: Able to walk. Sensory exam: no abnormal findings. No cerebellar signs elicited. F-T-N test fine. Objective Objective Vital Signs Date Time Temp Pulse Resp B/P (MAP) Pulse Ox O2 Delivery O2 Flow Rate FiO2 04/09/18 11:00 98.3 65 20 122/71 (88) 95 Room Air 98.3 04/09/18 07:00 2.0 Intake and Output 04/09/18 07:00 Intake Total 920 ml Balance 920 ml Intake Oral 920 ml # Voids 4 Vitals Signs Vitals VS - Last 72 Hours, by Label Date Time Temp Pulse Resp B/P (MAP) Pulse Ox O2 Delivery O2 Flow Rate FiO2 04/09/18 11:00 98.3 65 20 122/71 (88) 95 Room Air 98.3 04/09/18 08:29 65 129/65 04/09/18 08:29 65 129/65 04/09/18 08:00 Room Air 04/09/18 07:00 97.8 67 16 123/68 (86) 99 Nasal Cannula 2.0 97.8 04/09/18 03:00 65 17 129/65 (86) 98 Room Air 04/08/18 23:00 98.3 60 18 90/53 (65) 96 Room Air 98.3 04/08/18 20:00 Room Air 04/08/18 19:00 97.8 67 17 105/57 (73) 97 Room Air 97.8 04/08/18 17:21 75 100/58 04/08/18 15:00 97.6 75 20 100/58 (72) 94 Room Air 97.6 04/08/18 14:22 Nasal Cannula 04/08/18 11:00 97.7 61 20 111/63 (79) 98 Nasal Cannula 2.0 97.7 04/08/18 08:57 73 113/70 04/08/18 08:57 73 113/70 04/08/18 08:00 Nasal Cannula 04/08/18 07:00 97.5 68 16 139/78 (98) 98 Nasal Cannula 2.0 97.5 Laboratory Laboratory Laboratory Tests Test 04/08/18 21:02 04/09/18 07:54 04/09/18 11:46 Glucose (Fingerstick) 151 mg/dL (70-99) 89 mg/dL (70-99) 122 mg/dL (70-99) Microbiology 04/07/18 CSF Gram Stain - Final, Complete Medication Medications Current Medications Vitamin D (Vitamin D3) 2,000 unit DAILY PO Last administered on 04/09/18at 08: 30; Start 04/09/18 at 09:00; Stop 04/09/18 at 14:50; Status DC Comment Review of Relevant I have reviewed the following items tung (where applicable) has been applied. GLENN ESCOBEDO MD Apr 09, 2018 17:29
[2018-04-10 03:16] LABS: HERPES SIMPLEX TYPE 1 Negative (Negative); HERPES SIMPLEX TYPE 2 Negative (Negative)
== END 2018-04-09 14:50 | disposition home or self-care (01) | DRG 102 ==
LOC: 5 SOUTH 15:22
PROVIDERS: ADMIT Psychiatry & Neurology Neurology; ATTEND Psychiatry & Neurology Neurology
PROC: 009U3ZX Drainage of Spinal Canal, Percutaneous Approach, Diagnostic (ICD-10-PCS; principal; 2018-04-07)
PROC: B01B1ZZ Fluoroscopy of Spinal Cord using Low Osmolar Contrast (ICD-10-PCS; 2018-04-07)
DX: G43.919 Migraine, unspecified, intractable, without status migrainosus (principal); J96.00 Acute respiratory failure, unspecified whether with hypoxia or hypercapnia; Z68.41 Body mass index [BMI] 40.0-44.9, adult; E05.90 Thyrotoxicosis, unspecified without thyrotoxic crisis or storm; F32.9 Major depressive disorder, single episode, unspecified; E03.9 Hypothyroidism, unspecified; E11.42 Type 2 diabetes mellitus with diabetic polyneuropathy; E66.9 Obesity, unspecified; G31.84 Mild cognitive impairment of uncertain or unknown etiology; I25.10 Atherosclerotic heart disease of native coronary artery without angina pectoris; F41.9 Anxiety disorder, unspecified; I10 Essential (primary) hypertension; Z79.4 Long term (current) use of insulin; Z71.89 Other specified counseling; Z79.82 Long term (current) use of aspirin; Z90.49 Acquired absence of other specified parts of digestive tract; Z88.2 Allergy status to sulfonamides; Z88.8 Allergy status to other drugs, medicaments and biological substances; Z79.899 Other long term (current) drug therapy
CPT/HCPCS: 36415; 62270; 70450; 80048; 82306; 82945; 82962; 84157; 84443; 85025; 85610; 85651; 87071; 87075; 87529; 87641; 89051; J1815; J2270

== ENCOUNTER → 2018-08-05 | Outpatient (CLI) | payer MEDICARE, BC ==
[2018-06-28 11:00] VITALS: BP 115/79
[~2018-08-05] MED LIST changes: +AMLO5TAB10 PO; +ASCO100T4 PO; +CARV12.511 PO; -CARV12.52 PO; +CARV6.2511 PO; +CLON1TAB11 PO; -CLON1TAB4 PO; +ESCI10TA2 PO; +GABA-689 PO; -GABA600T2 PO; +GABA600T7 PO; +HYDR12.575 PO; +IOHEXOL 180 MG/ML 10 ML VIAL. ONE; +LEVO88TA4 PO; +LOSA-73 PO; +LOSA100T14 PO; -LOSA25TA5 PO; +LOSA25TA54 PO; +METO10TA81 PO; +MIRT45TA58 PO; +NAPR-683 PO; -OMEP10CA3 PO; +OMEP10CA4 PO; +OMEP40CA5 PO; +TRAM50TA PO; +[UNRECOGNIZED DRUG - OTHER]; +methylPREDNISolone ACETATE 40 MG/ML VIAL. ONE; +methylPREDNISolone ACETATE 80 MG/ML VIAL. ONE
--- NOTE | 2018-08-05 19:09 | PAIN ---
DATE OF SERVICE: 08/05/2018 INITIAL CONSULTATION FOR PAIN CLINIC CHIEF COMPLAINT: Low back and right lower extremity pain. HISTORY OF PRESENT ILLNESS: This is a 73-year-old female who presents with history of pain in low back, right lower extremity for several years, but worse over the past 4 months, not a result of any specific injury or action that she is aware of. The pains are increasing across the low back bilaterally and into the right posterior hip, posterior lateral thigh, lateral anterior thigh, medial thigh and groin on the right side as well as into the knee on the right. The patient reports it is worse with walking, standing, change in positions, better with sitting or lying down, does not awaken her from sleep at night, does not affect her bowel or bladder control. It does not affect her ability to walk. She is using a cane mostly in her left hand. The patient did have an MRI scan of the lumbar spine dated 06/26/2018 showing spondylitic disk at L2-L3 with superimposed right lateral disk protrusion, narrowing the right lateral recess. Disk protrusion may abut the descending right L3 nerve root with moderate right neural foraminal narrowing. The patient reports it is worse with walking, standing, changing positions, especially getting up from a seated position or sitting in the car for longer than 20-30 minutes. The patient reports the pain is throbbing, shooting, changes during the day, worse with activity, aching and radiating as well, becoming more severe, more constant. The patient reports a disability rate from 0-10, 10 being the worst, 2 with family and home responsibilities and social activity, 4 with recreation, 5 with occupation, 7 with self-care and 6 with life support activities. The patient has tried chiropractic treatment, which did help, but only temporarily and has had some interventional techniques several years ago at an outside facility, which helped as well, which was a lumbar epidural steroid injection. The patient reports no loss of motor function, but significant fatigability in right lower extremity with ambulation. PAST MEDICAL HISTORY: Significant for hearing loss, cataracts, type 2 diabetes, hypertension, syncope, cardiovascular disease, arthritis. PREVIOUS SURGERIES: Include cataract extraction, cholecystectomy, carpal tunnels bilaterally repaired, left lobe pneumonectomy left ankle surgery, decompression of the eyes bilaterally and eyelid surgery on the left, tonsillectomy, sinus surgery, rotator cuff surgery on the left. CURRENT MEDICATIONS: Include vitamin C, losartan, topiramate, atorvastatin, clonazepam, omeprazole, levothyroxine, mirtazapine, carvedilol, gabapentin, escitalopram, glimepiride, multivitamins, probiotic, MiraLax and potassium. ALLERGIES: The patient is allergic to SULFA, DOXYCYCLINE, PSEUDOEPHEDRINE, TRIPROLIDINE and ARIPIPRAZOLE. FAMILY HISTORY: Significant for colon cancer and heart disease. SOCIAL HISTORY: The patient does not drink alcohol, does not smoke, does not use any illegal, illicit or recreational drugs or other substances. Reports she is currently retired, lives locally in [place], [place]. REVIEW OF SYSTEMS: The patient's review of systems is positive for those items mentioned in history of present illness. All systems reviewed and otherwise negative. It is complete, full and well documented on the patient's chart. PHYSICAL EXAMINATION: VITAL SIGNS: The patient's blood pressure is 141/87, pulse 70, respirations 18, temperature 98.2 degrees Fahrenheit, height is 5 feet, weight is 221 pounds. GENERAL: The patient is awake, alert, oriented, appropriate, very pleasant demeanor. HEENT: Head is normocephalic, atraumatic. Extraocular movements are intact and symmetrical. Oral cavity: Mucous membranes moist and pink. Dentition is intact. NECK: Shows anterior throat supple without palpable lymphadenopathy noted. Swallow reflex is symmetrical. CHEST: Shows normal on inspection. Breath sounds clear to auscultation bilaterally. HEART: Shows S1, S2 clear. No murmurs auscultated. ABDOMEN: Soft, nontender, nondistended. No palpable organomegaly is noted. No rebound or guarding demonstrated. BACK: Shows spine grossly in the midline. Normal appearing thoracic kyphosis and mild flattening of the lumbar lordotic curvature. Lumbar paraspinous muscle shows symmetrical on inspection, with palpation shows some moderate tenderness diffusely in the upper, middle and lower distribution of the paraspinous musculature. The patient has good rotational motion both laterally greater than 10 degrees right and left as well as extension greater than 10 degrees, forward flexion 45 degrees without significant pain reported. No tenderness over the sacrum or sacroiliac regions or the spinous processes. EXTREMITIES: The patient's lower extremities show deep tendon reflexes 1+ in the patellar and tendo-calcaneus tendons. Motor exam is approximately 4 on a scale of 5 and equal and symmetrical bilaterally. Peripheral pulses are 1+ posterior tibial. No peripheral edema is noted. Lower extremities are warm and dry to touch, equal in color and appearance. The patient's straight leg raise noted to be positive on the right about 45 degrees and negative on the left. Gaenslen's and Juan David's maneuvers are negative bilaterally. The patient is able to stand, has difficulty trying to stand on her toes as she loses balance putting all of her weight on her right leg and walks with a slight shuffling gait, again using a cane in her left hand and initially was wearing a splint on her left foot from previous ankle injury. SKIN: Shows warm and dry, good turgor. No edema. No sores, rashes or bruising. IMPRESSION: 1. This is a 73-year-old female with a long history of low back and right lower extremity pain, worse over the past 4 months in a radicular fashion. 2. MRI scan of lumbar spine as noted. 3. Diabetes. 4. Hypertension. 5. Arthritis. 6. Coronary artery disease. PLAN: Options were discussed with the patient including conservative medical management, physical therapy, interventional techniques. She would like to pursue interventional techniques as she has had some success with these in the past. We discussed lumbar epidural steroid injection using description as well as anatomical models to describe the procedure. Risks were then discussed including, but not limited to bleeding, infection, possibility of epidural hematoma and subsequent neurological compromise, dural puncture, headaches, spinal cord and/or nerve damage, side effects of steroid medication and poor results regarding pain control. The patient understands and wished to proceed. The patient to return to clinic in approximately 2 weeks for followup, was counseled on return appointment, activity level and side effects to be aware of. DIAGNOSES: Lumbar radiculopathy with lumbar degenerative disk disease, lumbar spondylosis. PROCEDURE: Lumbar epidural steroid injection, translaminar approach at L3-L4 level using C-arm fluoroscopic guidance under sterile prep and drape using local anesthetic. MEDICATION INJECTED: A total of 120 mg Depo-Medrol plus 10 mL of preservative-free normal saline, 2 mL of Isovue for contrast. CONDITION AT DISCHARGE: Stable. The patient tolerated the procedure well, had no complications. KAM MCGRATH MD DR: Juliana JOB#: [id number] / [id number]
== END | disposition home or self-care (01) ==
LOC: PNCL 10:31
PROVIDERS: ATTEND Anesthesiology
DX: M51.16 Intervertebral disc disorders with radiculopathy, lumbar region (principal); M47.26 Other spondylosis with radiculopathy, lumbar region; I10 Essential (primary) hypertension; E11.9 Type 2 diabetes mellitus without complications; I25.10 Atherosclerotic heart disease of native coronary artery without angina pectoris; M19.90 Unspecified osteoarthritis, unspecified site; H91.90 Unspecified hearing loss, unspecified ear; Z98.42 Cataract extraction status, left eye; Z98.41 Cataract extraction status, right eye; Z96.1 Presence of intraocular lens; Z90.49 Acquired absence of other specified parts of digestive tract; Z98.890 Other specified postprocedural states; Z79.899 Other long term (current) drug therapy; Z88.2 Allergy status to sulfonamides; Z88.5 Allergy status to narcotic agent; Z88.8 Allergy status to other drugs, medicaments and biological substances; Z82.49 Family history of ischemic heart disease and other diseases of the circulatory system; Z80.0 Family history of malignant neoplasm of digestive organs; Z79.84 Long term (current) use of oral hypoglycemic drugs
CPT/HCPCS: 62323; J1030; J1040; Q9965

== ENCOUNTER → 2018-09-03 | Outpatient (CLI) | payer MEDICARE, BC ==
[2018-06-28 11:00] VITALS: BP 115/79
[~2018-09-03] MED LIST changes: -IOHEXOL 180 MG/ML 10 ML VIAL. ONE; -methylPREDNISolone ACETATE 40 MG/ML VIAL. ONE; -methylPREDNISolone ACETATE 80 MG/ML VIAL. ONE
--- NOTE | 2018-09-08 21:48 | EEG ---
DATE OF SERVICE: 09/03/2018 EEG #: [id number]. OBJECTIVE: This is a 73-year-old female patient with history of intermittent abnormal movements recently. EEG was requested to help rule out seizure. METHODS: Twenty electrodes were applied according to the international 10-20 electrode placement system. EKG monitoring, hyperventilation, intermittent photic stimulation, monopolar and bipolar montages are routinely utilized. The record was obtained on a digital system with video monitoring. FINDINGS: 1. Background: The patient was recorded in the awake and drowsy states. No actual sleep state was recorded. The overall background amplitude is 10-20 microvolts. A posterior dominant rhythm of 8 Hz is observed. 2. Abnormalities: No specific epileptiform discharge or electrographic seizure is seen. No focal or diffuse slowing. 3. Activation: Hyperventilation was performed with good efforts and normal response. Intermittent photic stimulation was performed with photic driving. No specific epileptiform discharge or electrographic seizure induced by hyperventilation or intermittent photic stimulation. IMPRESSION: This electroencephalogram is a normal study for the awake and drowsy states. No actual sleep state was recorded. No focal, lateralizing, specific epileptiform discharge or electrographic seizure is seen. GLENN ESCOBEDO MD DR: NUSRAT/jadyn JOB#: [id number] / [id number]
== END | disposition home or self-care (01) ==
LOC: RT 10:48
PROVIDERS: ATTEND Psychiatry & Neurology Neurology
DX: R56.9 Unspecified convulsions (principal)
CPT/HCPCS: 95816

== ENCOUNTER → 2018-10-26 | Outpatient (CLI) | payer MEDICARE, BC ==
[2018-06-28 11:00] VITALS: BP 115/79
[~2018-10-26] MED LIST changes: +IOHEXOL 180 MG/ML 10 ML VIAL. ONE; +methylPREDNISolone ACETATE 40 MG/ML VIAL. ONE; +methylPREDNISolone ACETATE 80 MG/ML VIAL. ONE
--- NOTE | 2018-10-26 21:56 | PAIN ---
DATE OF SERVICE: 10/26/2018 PROGRESS NOTE FOR PAIN CLINIC DIAGNOSES: Lumbar radiculopathy with lumbar degenerative disk disease and lumbar spondylosis. HISTORY OF PRESENT ILLNESS: The patient is a 73-year-old female who returns for followup status post lumbar epidural steroid injection x 1, last seen on 08/05/2018. The patient did very well with this with about 90% improvement until about 2 weeks ago. The patient reports the pain returned in the low back and right lower extremity, in the posterior gluteus, lateral thigh, lateral anterior thigh, medial thigh, medial lower leg. Rates at 9 on a scale of 10 at its worst over the past week, 7 on average, 3 at its least and is a 7 today. The patient reports it is sharp alternating with dull across the back and radiating shooting pain in the right leg, worse with walking, standing, better with lying down. It has been awakening her from sleep; however, over the past week or 2, generally it did not. The patient reports she had been increasing her distance walking, doing activities around the house, traveling with greater ease and comfort until the last few weeks. The patient reports no new motor or sensory deficits, no new bowel or bladder incontinence or other complaints. PHYSICAL EXAMINATION: VITAL SIGNS: The patient's blood pressure is 119/66, pulse 69, respirations 18, temperature 98.6 degrees Fahrenheit. Height is 5 feet, weight is 225 pounds. GENERAL: The patient is awake, alert, oriented, appropriate, very pleasant demeanor. HEENT: Shows normocephalic, atraumatic. The patient wears eye glasses. Extraocular movements are intact, symmetrical. Oral cavity: Mucous membranes moist and pink. Dentition is intact. NECK: Shows anterior throat supple without palpable lymphadenopathy noted. Swallow reflex symmetrical. CHEST: Shows normal on inspection. Breath sounds clear to auscultation bilaterally. HEART: Shows S1, S2 clear. No murmurs auscultated. ABDOMEN: Soft, nontender, nondistended. No palpable organomegaly is noted. No rebound or guarding demonstrated. BACK: Shows spine grossly in the midline. Normal appearing thoracic kyphosis and minor flattening of lumbar lordotic curvature. Lumbar paraspinous muscle shows symmetrical on inspection, on palpation shows some moderate tenderness diffusely, but only diffusely without radiation. The patient has good rotational motion of lumbar spine, both laterally as well as extension and flexion without difficulty. EXTREMITIES: The patient's lower extremities show deep tendon reflexes 1+ in the patellar and tendo calcaneus tendons. Motor exam is approximately 4 on a scale of 5, but equal and symmetrical dorsiflexion, extension, quadriceps and hamstring flexion. Peripheral pulses are 1+ posterior tibial. No peripheral edema is noted. No bruising or other abnormalities. Options were discussed with the patient. The patient's old chart was reviewed as her current medication regimen updated. Current review of systems updated today as well. We will proceed with lumbar epidural steroid injection today as the second in this series with fluoroscopic guidance. Risks were again discussed including, but not limited to, bleeding, infection, possibility of epidural hematoma, subsequent neurological compromise, dural puncture, headaches, spinal cord and/or nerve damage, side effects of steroid medication and poor results regarding pain control. The patient understands and wished to proceed. The patient will return to clinic in approximately 2 weeks for followup, was counseled as to return appointment, activity level and side effects to be aware of. DIAGNOSES: Lumbar radiculopathy with lumbar degenerative disk disease, lumbar spondylosis. PROCEDURE: Lumbar epidural steroid injection, translaminar approach at L3-L4 level using C-arm fluoroscopic guidance under sterile prep and drape using local anesthetic. MEDICATION INJECTED: A total of 120 mg Depo-Medrol plus 10 mL of preservative-free normal saline and 2 mL of Isovue for contrast. CONDITION AT DISCHARGE: Stable. The patient tolerated procedure well, had no complications. KAM MCGRATH MD DR: TORIE/jadyn JOB#: [id number] / [id number]
== END | disposition home or self-care (01) ==
LOC: PNCL 13:06
PROVIDERS: ATTEND Anesthesiology
DX: M51.16 Intervertebral disc disorders with radiculopathy, lumbar region (principal); M47.26 Other spondylosis with radiculopathy, lumbar region; Z88.2 Allergy status to sulfonamides; Z88.8 Allergy status to other drugs, medicaments and biological substances
CPT/HCPCS: 62323; J1030; J1040; Q9965

== ENCOUNTER → 2019-05-02 | Outpatient (CLI) | payer MEDICARE, BC ==
[2019-02-09 11:00] VITALS: BP 115/53
[~2019-05-02] MED LIST changes: +BENZ1LOZ4 PO; -CLON1TAB11 PO; +CLONAZEPAM1 MG PO; +DAPT350V IV; -GLIM1TAB2 PO; +GLIM1TAB3 PO; -GLIM4TAB2 PO; +GLIM4TAB4 PO; +MERO1VIA15 IV; +OMEP40CA45 PO; -OMEP40CA5 PO; +OXYC1TAB15 PO; +SCOP1PAT11 TD; +TOPI50TA38 PO
--- NOTE | 2019-05-02 13:09 | PAIN ---
DATE OF SERVICE: 05/02/2019 PROGRESS NOTE FOR PAIN CLINIC DIAGNOSES: Lumbar radiculopathy with lumbar degenerative disk disease and lumbar spondylosis. HISTORY OF PRESENT ILLNESS: The patient is a 73-year-old female who returns for followup status post lumbar epidural steroid injections x 2, most recently 10/26/2018. The patient did well, about 80% improvement. The patient reports she had fallen about 4 times since then and has had some increased pain since that over the past month or so in the low back and into the bilateral lower extremities, more on the right than the left. The patient reports no new motor or sensory deficits, no new bowel or bladder incontinence. The patient's pain is a 7 on a scale of 10 at its worst, average and least and is a 7 at all times. It is a 7 today. The patient also has some pain in the knees and when she had fallen, the knee pain has been significantly as well. The patient reports no new motor or sensory deficits, better with sitting or lying down, does not awaken her from sleep at night. PHYSICAL EXAMINATION: VITAL SIGNS: The patient's blood pressure 150/88, pulse 70, respirations 18, temperature 98.2 degrees Fahrenheit, height is 5 feet 1 inch, weight is 210 pounds. GENERAL: The patient is awake, alert, oriented, appropriate, very pleasant demeanor. HEENT: Shows normocephalic, atraumatic. Extraocular movements are intact and symmetrical. Oral cavity: Mucous membranes moist and pink. Dentition is intact. NECK: Shows anterior throat supple without palpable lymphadenopathy noted. Swallow reflex symmetrical. CHEST: Shows normal on inspection. Breath sounds clear to auscultation bilaterally. HEART: Shows S1, S2 clear. No murmurs auscultated. ABDOMEN: Soft, nontender, nondistended. BACK: Shows spine grossly in the midline, slight exaggerated thoracic kyphosis, some minor flattening of lumbar lordotic curvature. Lumbar paraspinous muscle shows symmetrical on inspection, on palpation shows some mild tenderness, but only mildly in the low lumbar distribution. The patient has good rotational motion both laterally as well as extension and flexion without difficulty. EXTREMITIES: The patient's lower extremities show deep tendon reflexes at 1+ in the patellar and tendo calcaneus tendons. Motor exam is approximately 4 on a scale of 5, but equal and symmetrical dorsiflexion, extension, quadriceps and hamstring flexion. Peripheral pulses are 1+ posterior tibia. No peripheral edema is noted. Options were discussed with the patient. The patient's old chart was reviewed as her current medication regimen updated. Current review of systems updated today as well. We will proceed with a first in this series of lumbar epidural steroid injection today with fluoroscopic guidance. Risks were again discussed including, but not limited to bleeding, infection, possibility of epidural hematoma, subsequent neurological compromise, dural puncture, headaches, spinal cord and/or nerve damage, side effects of steroid medication and poor results regarding pain control. The patient understands and wished to proceed. The patient will return to the clinic in approximately 2 weeks for followup. She was counseled on return appointment, activity level and side effects to be aware of. DIAGNOSES: Lumbar radiculopathy with lumbar degenerative disk disease and lumbar spondylosis. PROCEDURE: Lumbar epidural steroid injection, translaminar approach L3-L4 level using C-arm fluoroscopic guidance under sterile prep and drape using local anesthetic. MEDICATION INJECTED: A total of 120 mg Depo-Medrol plus 10 mL of preservative-free normal saline and 2 mL of contrast. CONDITION AT DISCHARGE: Stable. The patient tolerated procedure well, had no complications. KAM MCGRATH MD DR: TORIE/jadyn JOB#: [id number] / [id number]
== END ==
LOC: PNCL 11:26
PROVIDERS: ATTEND Anesthesiology
DX: M51.16 Intervertebral disc disorders with radiculopathy, lumbar region (principal); M47.816 Spondylosis without myelopathy or radiculopathy, lumbar region
CPT/HCPCS: 62323; J1030; J1040; Q9965

== ENCOUNTER → 2019-05-24 | Outpatient (CLI) | payer MEDICARE, BC ==
[2019-02-09 11:00] VITALS: BP 115/53
[~2019-05-24] MED LIST changes: -IOHEXOL 180 MG/ML 10 ML VIAL. ONE; -methylPREDNISolone ACETATE 40 MG/ML VIAL. ONE; -methylPREDNISolone ACETATE 80 MG/ML VIAL. ONE
[2019-05-24 15:11] LABS: FREE T4 0.93 ng/dL (0.76-1.46); THYROID STIM HORMONE (TSH) 3.389 uIU/mL (0.358-3.74)
== END ==
LOC: LAB 14:13
PROVIDERS: ATTEND Psychiatry & Neurology Neurology
DX: G70.00 Myasthenia gravis without (acute) exacerbation (principal); E03.9 Hypothyroidism, unspecified; I10 Essential (primary) hypertension; E78.00 Pure hypercholesterolemia, unspecified; E11.42 Type 2 diabetes mellitus with diabetic polyneuropathy
CPT/HCPCS: 83519; 83520; 84439; 84443; 84238

== ENCOUNTER → 2019-07-11 | Outpatient (CLI) | payer MEDICARE, BC ==
[2019-02-09 11:00] VITALS: BP 115/53
[~2019-07-11] MED LIST changes: -GLIM1TAB3 PO; +GLIM1TAB7 PO; -GLIM4TAB4 PO; +GLIM4TAB8 PO; +IOHEXOL 180 MG/ML 10 ML VIAL. ONE; +methylPREDNISolone ACETATE 40 MG/ML VIAL. ONE; +methylPREDNISolone ACETATE 80 MG/ML VIAL. ONE
--- NOTE | 2019-07-11 23:13 | PAIN ---
DATE OF SERVICE: 07/11/2019 PROGRESS NOTE FOR PAIN CLINIC DIAGNOSIS: Lumbar radiculopathy with lumbar degenerative disk disease and lumbar spondylosis. HISTORY OF PRESENT ILLNESS: The patient is a 73-year-old female who returns for followup status post lumbar epidural steroid injection on 05/02/2019. The patient did very well with about 90% improvement, but then she fell about 3 weeks ago and the pain began to return in the low back in the right lower extremity, posterior gluteus, lateral thigh, anterior thigh, medial thigh, groin and medial lower leg. The patient reports it is a 7 on a scale of 10 on average, 8 at its worst, 4 at its least over the past week and is a 7 today. The patient reports tingling, shooting, radiating, becoming more constant, aching, dull, sharp, and tight in the low back. The patient reports it is better with sitting or lying down, much worse with walking, standing, change in positions. Initially, she was doing greater distance walking, doing household activities, traveling with greater ease and comfort, and was doing quite well until she fell. She reports she was stepping up on a curb and fell out from underneath her and she fell on her right side. The patient reports no new bowel or bladder incontinence, no new motor or sensory deficits. PHYSICAL EXAMINATION: VITAL SIGNS: The patient's blood pressure is 136/74, pulse 67, respirations 18, temperature is 98.2 degrees Fahrenheit. Height is 5 feet 2 inches. Weight is 200 pounds. GENERAL: The patient is awake, alert, oriented, appropriate, very pleasant demeanor. HEENT: Shows normocephalic, atraumatic. Extraocular movements are intact and symmetrical. Oral cavity shows mucous membranes moist and pink. Dentition is intact. NECK: Shows anterior throat supple without palpable lymphadenopathy noted. Swallow reflex symmetrical. CHEST: Shows normal on inspection. Breath sounds are clear bilaterally. HEART: Shows S1, S2 clear. No murmurs auscultated. ABDOMEN: Soft, nontender, nondistended. No palpable organomegaly is noted. No rebound or guarding demonstrated. BACK: Shows spine grossly in the midline. Normal appearing thoracic kyphosis and flattening of lumbar lordotic curvature. Lumbar paraspinous muscle shows symmetrical on inspection, palpation shows some moderate tenderness diffusely bilaterally going diffusely without significant radiation. EXTREMITIES: The patient's lower extremities show deep tendon reflexes at 1+ in the patellar and tendo calcaneus tendons. Motor exam is strong with 4 on a scale of 5, but symmetrical with dorsiflexion, extension, quadriceps and hamstring flexion equal. Peripheral pulses are 1+ posterior tibia. No peripheral edema is noted bilaterally. Options were discussed with the patient. The patient's old chart was reviewed as her current medication regimen updated. Current review of systems updated today as well. We will proceed with a second in a series of lumbar epidural steroid injection today with fluoroscopic guidance. Risks were again discussed including, but not limited to bleeding, infection, possibility of epidural hematoma, subsequent neurological compromise, dural puncture, headaches, spinal cord and/or nerve damage, side effects of steroid medication and poor results regarding pain control. The patient understands and wished to proceed. The patient will return to clinic in approximately 2 weeks for followup. She was counseled on return appointment, activity level and side effects to be aware of. DIAGNOSIS: Lumbar radiculopathy with lumbar degenerative disk disease and lumbar spondylosis. PROCEDURE: Lumbar epidural steroid injection translaminar approach L3-L4 level using C-arm fluoroscopic guidance under sterile prep and drape using local anesthetic. MEDICATIONS INJECTED: A total of 120 mg of Depo-Medrol plus 10 mL of preservative-free normal saline and 2 mL of contrast. CONDITION AT DISCHARGE: Stable. The patient tolerated procedure well, had no complications. KAM MCGRATH MD DR: TORIE/jadyn JOB#: [id number] / [id number]
== END | disposition home or self-care (01) ==
LOC: PNCL 13:13
PROVIDERS: ATTEND Anesthesiology
DX: M51.16 Intervertebral disc disorders with radiculopathy, lumbar region (principal); M47.26 Other spondylosis with radiculopathy, lumbar region; Z98.890 Other specified postprocedural states
CPT/HCPCS: 62323; J1030; J1040; Q9965

== ENCOUNTER → 2019-08-29 | Outpatient (CLI) | payer MEDICARE, BC ==
[2019-02-09 11:00] VITALS: BP 115/53
[~2019-08-29] MED LIST changes: -MERO1VIA15 IV; +MERO1VIA24 IV
--- NOTE | 2019-08-29 14:46 | PAIN ---
DATE OF SERVICE: 08/29/2019 PROGRESS NOTE FOR PAIN CLINIC DIAGNOSES: Lumbar radiculopathy with lumbar degenerative disk disease and lumbar spondylosis. HISTORY OF PRESENT ILLNESS: The patient is a 74-year-old female who returns for followup status post lumbar epidural steroid injections x 2, most recently 07/11 and before that 05/02/2019. The patient reports she did very well, near 100% improvement after the last injection, but she fell just about a week and half ago when she was walking on a sidewalk in front of her home. The patient did have a cane with her when she fell. The patient reports that she got her feet stuck on the pavement and fell and has increased pain in the low back and into the right lower extremity once again mostly in the posterior gluteus, lateral thigh, anterior medial thigh, medial groin and the medial knee on the right side. The patient reports it is an 8 on a scale of 10 on average, 8 at its worst and a 5 at its least and is an 8 today. The patient reports otherwise before the fall she was doing very well. She was increasing her ability to bend at the waist, standing for longer periods, walking for greater distances with greater ease and comfort. The patient reports now the pain has returned, again is a stabbing pain, sharp, becoming more constant and unbearable in the right leg and low back. PHYSICAL EXAMINATION: VITAL SIGNS: The patient's blood pressure 106/64, pulse 72, respirations 16, temperature 99.2 degrees Fahrenheit, weight is 196 pounds. GENERAL: The patient is awake, alert, oriented, appropriate, very pleasant demeanor. HEENT: Shows normocephalic, atraumatic. Extraocular movements are intact and symmetrical. Oral cavity: Mucous membranes moist and pink. Dentition is intact. NECK: Shows anterior throat supple without palpable lymphadenopathy noted. Swallow reflex symmetrical. CHEST: Shows normal on inspection. Breath sounds clear to auscultation bilaterally. HEART: Shows S1, S2 clear. No murmurs auscultated. ABDOMEN: Soft, nontender, nondistended. No palpable organomegaly is noted. No rebound or guarding demonstrated. BACK: Shows spine grossly in the midline. Normal appearing thoracic kyphosis and lumbar lordotic curvature. Lumbar paraspinous muscle shows symmetrical on inspection, with palpation shows some moderate tenderness diffusely bilaterally, but only diffusely without significant radiation. EXTREMITIES: The patient's lower extremities show deep tendon reflexes 1+ in the patellar and tendo calcaneus tendons are equal. Motor exam is 4 on a scale of 5, but equal and symmetrical dorsiflexion, extension, quadriceps and hamstring flexion bilaterally. Peripheral pulses are 1+ posterior tibia. No peripheral edema is noted. Options were discussed with the patient. The patient's old chart was reviewed as her current medication regimen updated. Current review of systems updated today as well. We will proceed with a lumbar epidural steroid injection today with fluoroscopic guidance. Risks were again discussed including, but not limited to bleeding, infection, possibility of epidural hematoma, subsequent neurological compromise, dural puncture, headaches, spinal cord and/or nerve damage, side effects of steroid medication and poor results regarding pain control. The patient understands and wished to proceed. The patient will return to clinic in approximately 2 weeks for followup. She was counseled on return appointment, activity level and side effects to be aware of. DIAGNOSES: Lumbar radiculopathy with lumbar degenerative disk disease and lumbar spondylosis. PROCEDURE: Lumbar epidural steroid injection, translaminar approach at L3-L4 level using C-arm fluoroscopic guidance under sterile prep and drape using local anesthetic. MEDICATION INJECTED: A total of 120 mg Depo-Medrol plus 10 mL of preservative-free normal saline and 2 mL of contrast. CONDITION AT DISCHARGE: Stable. The patient tolerated the procedure well, had no complications. KAM MCGRATH MD DR: TORIE/jadyn JOB#: [id number] / [id number]
== END ==
LOC: PNCL 13:33
PROVIDERS: ATTEND Anesthesiology
DX: M51.16 Intervertebral disc disorders with radiculopathy, lumbar region (principal); M47.816 Spondylosis without myelopathy or radiculopathy, lumbar region
CPT/HCPCS: 62323; J1030; J1040; Q9965

== ENCOUNTER → 2020-10-12 | Outpatient (CLI) | payer MEDICARE, BC ==
[2019-02-09 11:00] VITALS: BP 115/53
[~2020-10-12] MED LIST changes: +AMLO-186 PO; -AMLO5TAB10 PO; -ESCI10TA2 PO; +ESCI10TA90 PO; -IOHEXOL 180 MG/ML 10 ML VIAL. ONE; +MULT-445 PO; -MULT1TAB52 PO; -OMEP40CA45 PO; +OMEP40CA7 PO; -methylPREDNISolone ACETATE 40 MG/ML VIAL. ONE; -methylPREDNISolone ACETATE 80 MG/ML VIAL. ONE
--- NOTE | 2020-10-12 17:06 | KCIC ---
EXAM: Brain MRI without contrast. HISTORY: Migraine headaches. Abnormal head shape. TECHNIQUE: Multiplanar, multisequence magnetic resonance imaging of the brain was performed without c ontrast. COMPARISON: 03/24/2017 FINDINGS: There is no restricted diffusion to suggest acute or subacute infarction. There is no susce ptibility effect to suggest hemorrhage. There is no mass effect or midline shift. There is no hydroce phalus. There are a few small scattered focal areas of signal change within the cerebral white matter , likely due to chronic small vessel disease. There is evidence of lens surgery. There are chronic bilateral inferior orbital wall and lamina papyr acea fractures. There is paranasal sinus mucosal thickening and there are right greater than left max illary sinus mucous retention cysts. There is complete opacification of the right maxillary sinus. Th ere are maxillary antrostomy/uncinectomy changes. The mastoid air cells are clear. There are normal f low voids within the cerebral vessels. No suspicious calvarial lesion is seen. IMPRESSION: 1. No acute intercranial finding. 2. Small focal areas of signal change within the cerebral white matter. This can be due to chronic sm all vessel disease or the reported history of chronic migraine headaches. 3. 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 Electronically signed by: Mary Herndon MD (10/12/2020 5:04 PM) [id number]
== END ==
LOC: KCIC MRI 13:40
PROVIDERS: ATTEND Nurse Practitioner Family
DX: G43.701 Chronic migraine without aura, not intractable, with status migrainosus (principal); Q75.9 Congenital malformation of skull and face bones, unspecified
CPT/HCPCS: 70551

== ENCOUNTER → 2021-01-17 | Outpatient (CLI) | payer MEDICARE, BC ==
[2019-02-09 11:00] VITALS: BP 115/53
[~2021-01-17] MED LIST changes: +BUPIVACAINE MPF 0.25% 10 ML VIAL. ONE; +IOHEXOL 180 MG/ML 10 ML VIAL. ONE; +methylPREDNISolone ACETATE 80 MG/ML VIAL. ONE
--- NOTE | 2021-01-17 13:47 | PDOC ---
Progress Note - Pain Clinic Date of Service: DOS: DATE: 01/17/21 TIME: 13:42 Diagnosis: Dx: Lumbar radiculopathy with lumbar degenerative disease lumbar spondylosis Left knee joint pain with osteoarthritis History or Present Illness: HPI: 75-year-old female returns for follow-up last seen August 29, 2019 patient underwent lumbar epidural steroid injection with very good results patient reports her pain is 100% improved in the low back her chief complaint today however is left knee joint pain which is a new finding for her has been getting worse over the past 6 to 8 months not controlled of any specific injury or accident that she is aware of is getting much worse with walking and standing patient does wear a supportive brace on her left ankle just below the left knee and she feels that this may contribute to the pain in her knee patient has had recent x-rays of the knee we discussed those with her today as well showing medial compartment joint space narrowing and small to moderate osteophytes as well. Patient reports significant pain with walking standing put all of her weight on her left leg such as climbing on a step or a stair with the left knee patient reports right knee is not painful. Patient scribes pain is aching and sharp tingling at times and can be constant with standing patient rates is an 8 on scale 10 is worse over the past week 5 on average 3 its least is a 5 today. Patient reports no other changes no new motor or sensory deficits no bowel or bladder incontinence. Physical Exam: VS: Blood pressure is 125/72 pulse 68 respirations 18 temperature is 99.6 F height is 5 foot 2 inches weight is 188 pounds PE: PHYSICAL EXAMINATION: GENERAL: The patient is awake, alert, oriented, appropriate, very pleasant in demeanor. HEENT: Shows normocephalic, atraumatic. Extraocular movements are intact and symmetrical. Oral cavity: Mucous membranes moist and pink. NECK: Shows anterior throat supple without palpable lymphadenopathy noted. Swallow reflex symmetrical. CHEST: Shows normal on inspection. Breath sounds are clear bilaterally, no rales rhonchi or wheezes auscultated. HEART: Shows S1, S2 clear. No murmurs auscultated. ABDOMEN: Soft, nontender, nondistended, obese. No palpable organomegaly is noted. BACK: Shows spine grossly in the midline. Normal-appearing cervical lordotic curvature. There is slightly increased thoracic kyphosis, some minor flattening of the lumbar lordotic curvature. Lumbar paraspinous muscles show symmetrical on inspection, on palpation shows some moderate tenderness diffusely throughout the upper, middle and lower distribution of the paraspinous muscles, but without specific trigger points, without radiation of pain. The patient has good rotational motion of the lumbar spine, both laterally as well as extension and flexion without significant difficulty. No tenderness over the spinous processes, sacrum or sacroiliac regions. EXTREMITIES: Lower extremities show deep tendon reflexes 1+ in the patellar and tendo calcaneus tendons. Motor exam is 4 on a scale of 5 with right dorsiflexion, extension, quadriceps and hamstring flexion and 4/5 on the left. Peripheral pulses are 1+ posterior tibial. No peripheral edema is noted bilaterally. Lower extremities are warm and dry to touch, equal in color and appearance. Patient has ankle supportive brace on the left lower leg. SKIN: Shows warm and dry, good turgor. No edema. No sores, rashes or bruising throughout. Procedure: Procedure: Options discussed with patient. Patient chart reviews her current medication regimen updated current review of systems updated today as well. We will proce ed with a left intra-articular knee joint injection today with fluoroscopic guidance. Risk were discussed including but not limited to bleeding infection possibility of intravascular injection sequelae spread of local anesthetic numbness side effects steroid medication exposure fluoroscopy and portals regarding pain control. Patient understands wished to proceed. Patient will re turn to clinic in approximately 4 weeks for follow-up, was counseled as to return appointment activity level, and side effects to be aware of. Medication Injected: Med Injected: Under sterile prep and drape patient in supine position using C-arm fluoroscopic guidance patient's left knee was sterilely prepped and draped in usual fashion. Using C-arm fluoroscopy the medial aspect of the knee joint was identified and visualized and using 1% lidocaine 25-gauge needle of the area of the skin overlying the medial knee compartment was anesthetized. Using a 22-gauge quickie needle with stylette the joint was entered under direct visualization without difficulty. Stylet was removed at this time 1 cc of contrast was then injected with good spread within the knee joint itself without washout or uptake. At this time solution containing 3 cc of 0.25 bupivacaine and 80 mg Depo-Medrol, was then injected. Needle was withdrawn and sterile bandage was applied. Patient tolerated procedure well and had no complications. Condition at Discharge: Condition at Discharge: Condition at discharge stable, patient already procedure well and had no complications. KAM MCGRATH MD Jan 17, 2021 13:46
--- NOTE | 2021-01-17 13:47 | PDOC4 ---
Procedure Note: ICD 10 Code: ICD 10 Code: M2 5.562 M1 7.12 Procedure Note: Patient was consented for left intra-articular knee joint injection with fluoroscopic guidance. Risks were discussed including but not limited to bleeding infection possibility of intravascular injection sequelae spread of local anesthetic numbness, side effects steroid medication and poor results regarding pain control. Patient understands wished to proceed. Under sterile prep and drape patient in supine position using C-arm fluoroscopic guidance patient's left knee was sterilely prepped and draped in usual fashion. Using C-arm fluoroscopy the medial aspect of the knee joint was identified and visualized and using 1% lidocaine 25-gauge needle of the area of the skin overlying the medial knee compartment was anesthetized. Using a 22-gauge qu ickie needle with stylette the joint was entered under direct visualization without difficulty. Stylet was removed at this time 1 cc of contrast was then injected with good spread within the knee joint itself without washout or uptake. At this time solution containing 3 cc of 0.25 bupivacaine and 80 mg Depo-Medrol, was then injected. Needle was withdrawn and sterile bandage was applied. Patient tolerated procedure well and had no complications. KAM MCGRATH MD Jan 17, 2021 13:47
== END | disposition home or self-care (01) ==
LOC: PNCL 13:08
PROVIDERS: ATTEND Anesthesiology
DX: M17.12 Unilateral primary osteoarthritis, left knee (principal); M51.16 Intervertebral disc disorders with radiculopathy, lumbar region; M47.816 Spondylosis without myelopathy or radiculopathy, lumbar region; I10 Essential (primary) hypertension; E78.00 Pure hypercholesterolemia, unspecified; G47.30 Sleep apnea, unspecified; K21.9 Gastro-esophageal reflux disease without esophagitis; E11.9 Type 2 diabetes mellitus without complications; E03.9 Hypothyroidism, unspecified; F41.9 Anxiety disorder, unspecified; F32.9 Major depressive disorder, single episode, unspecified; Z90.49 Acquired absence of other specified parts of digestive tract; Z98.890 Other specified postprocedural states; Z79.899 Other long term (current) drug therapy; Z79.82 Long term (current) use of aspirin; Z88.1 Allergy status to other antibiotic agents; Z88.2 Allergy status to sulfonamides; Z88.8 Allergy status to other drugs, medicaments and biological substances
CPT/HCPCS: 20610; 77002; J1040; J3490; Q9965; 20605